=== PATIENT | female | born 1970 | race Caucasian/White ===

== ENCOUNTER → 2017-12-18 14:52 | Outpatient (CLI) | payer BC, SELFPAY ==
[2017-12-18 17:20] LABS: Absolute Lymphocyte Count 2.81 X10^3/ul (0.83-4.51); Absolute Neutrophil Count 6.5 X10^3/uL (2.0-7.7); Basophil# 0.03 X10^3/uL; Basophil% 0.3 % (0-1); Eosinophil# 0.16 X10^3/uL; Eosinophils% 1.6 % (0-5); Hematocrit 41.1 % (37-47); Hemoglobin 13.4 g/dl (12.0-15.0); Lymphocyte # 2.81 X10^3/ul (4.0); Lymphocyte % 27.7 % (19-41); Mean Corp Hgb Conc 32.6 g/gl (32-36); Mean Corpuscular Volume 92.2 fL (81-99); Mean Platelet Vol. 11.7 fl (6.2-12.0); Monocyte# 0.63 X10^3/uL; Monocyte% 6.2 % (0-10); Neutrophil # 6.49 X10^3/uL (2.7-7.7); Neutrophil % 64.1 % (47-70); Platelet Count 312 K/mm3 (150-450); RBC Distribution Width CV 12.5 % (11.6-14.6); RBC Distribution Width SD 41.4 fl (35.1-43.9); Red Blood Count 4.46 M/mm3 (4.2-5.4); White Blood Count 10.1 K/mm3 (4.4-11.0)
[2017-12-18 17:23] LABS: POSITIVE COUNT NO; POSITIVE DIFFERENTIAL NO; POSITIVE MORPHOLOGY NO
[2017-12-18 17:39] LABS: ALB/GLOB Ratio 0.8 RATIO (0.9-2.4); AST(SGOT) 19 U/L (15-37); Alanine Aminotransfer ALT/SGPT 31 U/L (13-56); Albumin, Serum 3.2 g/dL (3.2-5.0); Alkaline Phosphatase 84 U/L (45-117); Anion Gap 12 (5-15); BUN 14 mg/dL (7-18); BUN/Creat Ratio 20.6 RATIO (10-20); Calcium,Total 8.4 mg/dL (8.5-10.1); Chloride 103 mmol/L (98-107); Creatinine, Serum 0.68 mg/dL (0.55-1.02); EST Glomerular Filtration Rate 98 mL/min (>60); Est Glom Filt Rate - Afr Amer 118 mL/min (>60); Globulin 4.2 g/dL (2.2-4.2); Glucose 84 mg/dL (74-106); Potassium 4.1 mmol/L (3.5-5.1); Protein, Total 7.4 g/dL (6.4-8.2); Sodium Level 140 mmol/L (136-145); Thyroid Stim Hormone (TSH) 0.44 uIU/mL (0.358-3.74)
[2017-12-18 17:53] LABS: Vitamin D,25 Hydroxy 18.6 ng/mL (29.95-100.01)
== END ==
PROVIDERS: Family Provider Family Medicine Geriatric Medicine; PCP Family Medicine Geriatric Medicine; Visit Provider Family Medicine Geriatric Medicine
DX: E55.9 Vitamin D deficiency, unspecified (principal); R53.83 Other fatigue
CPT/HCPCS: 36415; 80053; 82306; 84443; 85025

== ENCOUNTER → 2018-01-15 12:30 | Outpatient (CLI) | payer BC, SELFPAY ==
--- NOTE | 2018-01-15 12:32 | US_ITS ---
STUDY: ULTRASOUND BREAST - LEFT REASON FOR EXAM: Female, 48 years old. Abnormal screening mammogram. TECHNIQUE: Axial and longitudinal images of the LEFT breast were performed with a high resolution ultrasound transducer. COMPARISON: Comparison is made with prior outside ultrasound of the breasts dated April 21, 2017. FINDINGS: LEFT Breast: At the 6:00 position in the breast at 2 cm from nipple, there is a 7 mm x 9 mm x 3 mm septated complex cyst. Adjacent to this, a similar-appearing nodule measuring 5 mm x 4 mm x 3 mm is seen. A biopsy is recommended. US/Breast Complete Unilateral IMPRESSION: There are 2 subcentimeter complex solid and cystic nodules at the 6:00 position breast at 2 cm from nipple. A biopsy is recommended. ASSESSMENT CATEGORY: BIRADS Category 4: Suspicious - Biopsy Should Be Considered. A letter regarding these results will be sent to the patient by the facility within 30 days. Electronically Signed: Morgan Corbett MD at 14:03 EST Tel [phone], Service support ,
== END ==
PROVIDERS: Family Provider Family Medicine Geriatric Medicine; PCP Family Medicine Geriatric Medicine; Referring Provider Surgery; Visit Provider Surgery
DX: N60.02 Solitary cyst of left breast (principal)
CPT/HCPCS: 76641

== ENCOUNTER → 2018-02-07 19:28 | Outpatient (CLI) | payer BC, SELFPAY ==
[2018-02-06 13:16] VITALS: BMI 26.7
[2018-02-07 22:49] LABS: Chlamydia Trachomatis by PCR Negative (Negative); Neisserai gonorrhoeae by PCR Negative (Negative); Probe Check PASS; Sample Adequacy Control PASS; Specimen Processing Control PASS
[2018-02-13 11:54] LABS: HPV Reflexed? NOT INDICATED
== END ==
PROVIDERS: Family Provider Family Medicine Geriatric Medicine; PCP Family Medicine Geriatric Medicine; Visit Provider Obstetrics & Gynecology
DX: Z12.4 Encounter for screening for malignant neoplasm of cervix (principal); Z11.3 Encounter for screening for infections with a predominantly sexual mode of transmission
CPT/HCPCS: 87491; 87591; 87624; 88175; G0145

== ENCOUNTER → 2018-02-16 07:59 | Outpatient (CLI) | payer BC, SELFPAY ==
[2018-02-06 13:16] VITALS: BMI 26.7
--- NOTE | 2018-02-16 | BRBX_PTH ---
PATIENT: VARSHA ALLISON LOC: OPUS U#:[id number] AGE/SX: 55/F ROOM: RE02/16/[address]: Dr. Marilia Brenner MD : 1970 BED: DIS: SPEC #: [id number] RECD: 02/16/18 14:35 STATUS: MATTIE REQamar #: [id number] TAMMY: 02/16/18 00:[address]: Marilia Brenner DEPT: SURGICAL PATHOLOGY RECD BY: Darin Rondon ENTERED: 02/16/18 14:35 SP TYPE: BREAST BX OTHR DR: Dr. Thierry Wan MD Tissues: Left breast, NOS Procedures: Surgery Specimen Level IV HEADER OPERATION: Left breast biopsy PRE-OP DIAGNOSIS: Left breast lesion TISSUE SUBMITTED: Left breast ISCHEMIC TIME: 1 minute MICROSCOPIC DIAGNOSIS Left breast, biopsy: Fibrocystic change. No evidence of malignancy. AM:dina 02/19/18 MICROSCOPIC DESCRIPTION Slides are reviewed. GROSS DESCRIPTION Received is one container labeled with the patient's name and not further designated. The specimen consists of multiple irregular fragments of light roche-yellow soft tissue that in aggregate measure 2 x 1.5 x 0.1 cm. The specimen is totally submitted in one cassette. / AM:dina 02/16/18 TC:5 CPT: 22379
--- NOTE | 2018-02-16 08:02 | US_ITS ---
ULTRASOUND GUIDED CORE BIOPSY REASON FOR EXAM: Female, 48 years old. Abnormal screening mammogram. PERTINENT HISTORY: Abnormal nodule at the 6:00 position of the breast. COMPARISON: Comparison is made with prior sonogram dated January 15, 2018. TECHNIQUE: (All elements of maximal sterile barrier technique followed, including US elements as applicable) Upon arrival to the breast imaging department the patient's identification was confirmed and the LEFT breast was marked according to time-out protocol. Ultrasound guided core biopsy and clip placement, to include potential risks and complications, was explained in full to the patient. Written and verbal consent were obtained prior to initiation of the procedure. The LEFT breast was prepped and draped in standard sterile fashion and local anesthesia was obtained with 1% buffered lidocaine. A small dermatotomy was then made to introduce the core biopsy needle. Under ultrasound guidance 5 core samples were obtained with a 11 gauge needle and submitted in formalin for pathology. A titanium clip was then deployed into the biopsy cavity under ultrasound guidance. Upon completion of the procedure hemostasis was obtained and sterile dressing was applied. The patient tolerated the entire procedure without immediate complication and was discharged from the breast imaging department in good condition. US/US Breast Biopsy 1st Lesion IMPRESSION: Ultrasound guided core biopsy of a mass in the LEFT breast at the 6:00 position of the breast without complication. Electronically Signed: Morgan Corbett MD at 8:28 EST Tel [phone], Service support ,
--- NOTE | 2018-02-16 08:47 | BI_ITS ---
MAMMOGRAPHY - UNILATERAL DIAGNOSTIC: LEFT BREAST REASON FOR EXAM: Female, 48 years old. Assessment of blood clip placement following ultrasound-guided breast biopsy. PERTINENT HISTORY: Ultrasound guided left breast biopsy. TECHNIQUE: Digital mediolateral oblique and craniocaudad views of the left breast following ultrasound-guided biopsy breasts were obtained. CAD: Full Field Digital Mammography with Computer Added Detection was performed. COMPARISON: Comparison is made with prior mammogram dated April 21, 2017. FINDINGS: Breast Composition: The breasts are heterogeneously dense, which may obscure small masses. A tissue clip marker is seen in the mid aspect of the left breast. No other significant abnormalities are identified. BI/DIAG MAMM W/CAD, UNILAT IMPRESSION: A tissue clip marker is seen at the biopsy site in the mid portion of the breast. ASSESSMENT CATEGORY: BIRADS Category 2: Benign. A letter regarding these results will be sent to the patient by the facility within 30 days. Approximately 10% of breast cancers are not detected by mammography. A normal mammogram should not delay biopsy of a clinically suspicious abnormality. Electronically Signed: Morgan Corbett MD at 9:46 EST Tel [phone], Service support ,
--- NOTE | 2018-02-16 08:49 | PCM.OP.BLANK ---
Operative Report Date of Procedure: 02/16/18 Procedure: ultrasound-guided core biopsy Indications: 48 year-old female with 2 solid/cystic nodules at 6:00 in the left breast to centimeters from the nipple. Risk benefits were discussed the patient and she elected to proceed with ultrasound guided core biopsy with clip placement Description of procedure: Patient was brought into the ultrasound room in the left breast was marked. A timeout was completed verifying correct patient, procedure, site, specially, prior to beginning procedure. The left breast was prepped and draped in usual sterile fashion and using local anesthesia was obtained with 1% lidocaine with epi. The lesion was located with the ultrasound. Small incision was made with 11 blade to introduced the mammotome through the skin. Under ultrasound guidance multiple core samples were obtained using then 13-gauge mammotome and sent in formalin for pathology. The mammotome mammostar clip was then deployed into the biopsy cavity under ultrasound guidance and a picture was taken. Upon completion procedure hemostasis was obtained and a Steri-Strip and OpSite were placed. Patient was then taken to the mammography suite for clip verification. The clip was verified. The patient tolerated the procedure well and was discharged from the breast imaging department good condition. complications: none
== END ==
PROVIDERS: Family Provider Family Medicine Geriatric Medicine; PCP Family Medicine Geriatric Medicine; Referring Provider Surgery; Visit Provider Surgery
DX: N60.12 Diffuse cystic mastopathy of left breast (principal)
CPT/HCPCS: 19083; 77065; 88305

== ENCOUNTER → 2018-06-05 15:28 | Outpatient (CLI) | payer BC, SELFPAY ==
[2018-02-06 13:16] VITALS: BMI 26.7
--- NOTE | 2018-06-05 15:33 | US_ITS ---
STUDY: ULTRASOUND BREAST - LEFT REASON FOR EXAM: Female, 48 years old. Palpable lump left breast. TECHNIQUE: Axial and longitudinal images of the LEFT breast were performed with a high resolution ultrasound transducer. COMPARISON: Comparison is made with prior mammogram dated February 16, 2018 and prior sonogram of the left breast dated January 15, 2018. FINDINGS: LEFT Breast: A tissue clip marker is seen at the 6:00 position of the breast. The previously seen subcentimeter nodular densities are not seen at this time. US/Breast Limited Unilateral IMPRESSION: Status post left breast biopsy. No nodules are seen at this time. A tissue clip marker is seen at the biopsy site. ASSESSMENT CATEGORY: BIRADS Category 2: Benign. A letter regarding these results will be sent to the patient by the facility within 30 days. Electronically Signed: Morgan Corbett, at 9:02 EDT , Service support ,
== END ==
PROVIDERS: Family Provider Family Medicine Geriatric Medicine; PCP Family Medicine Geriatric Medicine; Referring Provider Obstetrics & Gynecology; Visit Provider Obstetrics & Gynecology
DX: N60.02 Solitary cyst of left breast (principal); R92.8 Other abnormal and inconclusive findings on diagnostic imaging of breast
CPT/HCPCS: 76642

== ENCOUNTER → 2018-12-24 13:10 | Outpatient (CLI) | payer BC, SELFPAY ==
[2018-02-06 13:16] VITALS: BMI 26.7
[2018-12-24 17:46] LABS: Absolute Neutrophil Count 5.1 X10^3/uL (2.0-7.7); Basophil# 0.05 X10^3/uL; Basophil% 0.6 % (0-1); Eosinophil# 0.17 X10^3/uL; Hematocrit 43.5 % (37-47); Hemoglobin 14.2 g/dL (12.0-15.0); Lymphocyte % 30.2 % (19-41); Mean Corp Hgb Conc 32.6 g/dL (32-36); Mean Corpuscular Hgb 30.9 pg (27.0-32.0); Mean Corpuscular Volume 94.8 fL (81-99); Mean Platelet Vol. 11.2 fl (6.2-12.0); Monocyte# 0.66 X10^3/uL; Monocyte% 7.7 % (0-10); NRBC Flagged by Analyzer 0 % (0-5); Neutrophil # 5.11 X10^3/uL (2.7-7.7); Neutrophil % 59.2 % (47-70); Platelet Count 291 K/mm3 (150-450); Red Blood Count 4.59 M/mm3 (4.2-5.4); White Blood Count 8.6 K/mm3 (4.4-11.0)
[2018-12-24 18:22] LABS: ALB/GLOB Ratio 0.9 RATIO (0.9-2.4); AST(SGOT) 16 U/L (15-37); Alanine Aminotransfer ALT/SGPT 26 U/L (13-56); Albumin, Serum 3.7 g/dL (3.2-5.0); Alkaline Phosphatase 99 U/L (45-117); Anion Gap 7 (5-15); BUN 14 mg/dL (7-18); BUN/Creat Ratio 20.3 RATIO (10-20); Calcium,Total 8.5 mg/dL (8.5-10.1); Chloride 104 mmol/L (98-107); Creatinine, Serum 0.69 mg/dL (0.55-1.02); EST Glomerular Filtration Rate 95 mL/min (>60); Est Glom Filt Rate - Afr Amer 115 mL/min (>60); Globulin 3.9 g/dL (2.2-4.2); Glucose 122 mg/dL (74-106); Potassium 3.8 mmol/L (3.5-5.1); Protein, Total 7.6 g/dL (6.4-8.2); Sodium Level 138 mmol/L (136-145); Thyroid Stim Hormone (TSH) 0.48 uIU/mL (0.358-3.74)
== END ==
PROVIDERS: Family Provider Family Medicine Geriatric Medicine; PCP Family Medicine Geriatric Medicine; Visit Provider Family Medicine Geriatric Medicine
DX: Z00.00 Encounter for general adult medical examination without abnormal findings (principal)
CPT/HCPCS: 36415; 80053; 84443; 85025

== ENCOUNTER → 2019-03-18 08:16 | Outpatient (CLI) | payer BC, SELFPAY ==
[2018-02-06 13:16] VITALS: BMI 26.7
--- NOTE | 2019-03-18 08:18 | BI_ITS ---
MAMMOGRAPHY - BILATERAL SCREENING REASON FOR EXAM: Female, 49 years old. Routine annual screening examination. PERTINENT HISTORY: Grandmother with breast cancer. TECHNIQUE: Digital bilateral breast mallika (3D mammographic acquisition) in the CC and MLO projections. 2-D mediolateral oblique (MLO) and craniocaudad (CC) views of both breasts were obtained. CAD: Full Field Digital Mammography with Computer Added Detection was performed. COMPARISON: Comparison is made with prior examination dated February 16, 2018. FINDINGS: Breast Composition: The breasts are heterogeneously dense, which may obscure small masses. There are no dominant masses or suspicious calcifications. No other significant abnormalities are identified. There has been no significant change since the prior study. BI/SCREEN MAMM (CAD) W/MALLIKA BILAT IMPRESSION: Stable bilateral screening mammogram. Yearly follow-up mammogram recommended. (A) ASSESSMENT CATEGORY: BIRADS Category 1: Negative. A letter regarding these results will be sent to the patient by the facility within 30 days. Approximately 10% of breast cancers are not detected by mammography. A normal mammogram should not delay biopsy of a clinically suspicious abnormality. [id number] Electronically Signed: Morgan Corbett, at 9:55 EST , Service support ,
== END ==
PROVIDERS: Family Provider Family Medicine Geriatric Medicine; PCP Family Medicine Geriatric Medicine; Referring Provider Obstetrics & Gynecology; Visit Provider Obstetrics & Gynecology
DX: Z12.31 Encounter for screening mammogram for malignant neoplasm of breast (principal)
CPT/HCPCS: 77063; 77067

== ENCOUNTER → 2020-01-06 14:51 | Outpatient (CLI) | payer BC, SELFPAY ==
[2018-02-06 13:16] VITALS: BMI 26.7
[2020-01-06 17:10] LABS: Absolute Lymphocyte Count 2.34 X10^3/uL (0.83-4.51); Absolute Neutrophil Count 4.3 X10^3/uL (2.0-7.7); Basophil# 0.05 X10^3/uL; Basophil% 0.7 % (0-1); Eosinophil# 0.25 X10^3/uL; Eosinophils% 3.3 % (0-5); Hematocrit 43.2 % (37-47); Hemoglobin 13.9 g/dL (12.0-15.0); Lymphocyte # 2.34 X10^3/ul (4.0); Lymphocyte % 30.6 % (19-41); Mean Corp Hgb Conc 32.2 g/dL (32-36); Mean Corpuscular Hgb 30.8 pg (27.0-32.0); Mean Corpuscular Volume 95.6 fL (81-99); Mean Platelet Vol. 11.2 fl (6.2-12.0); Monocyte# 0.67 X10^3/uL; Monocyte% 8.8 % (0-10); NRBC Flagged by Analyzer 0 % (0-5); Neutrophil # 4.32 X10^3/uL (2.7-7.7); Neutrophil % 56.3 % (47-70); Platelet Count 322 K/mm3 (150-450); RBC Distribution Width CV 12.2 % (11.6-14.6); RBC Distribution Width SD 42.5 fl (35.1-43.9); Red Blood Count 4.52 M/mm3 (4.2-5.4); White Blood Count 7.7 K/mm3 (4.4-11.0)
[2020-01-06 17:43] LABS: ALB/GLOB Ratio 0.8 RATIO (0.9-2.4); AST(SGOT) 16 U/L (15-37); Alanine Aminotransfer ALT/SGPT 25 U/L (13-56); Albumin, Serum 3.5 g/dL (3.2-5.0); Alkaline Phosphatase 108 U/L (45-117); Anion Gap 8 (5-15); BUN 11 mg/dL (7-18); BUN/Creat Ratio 17.5 RATIO (10-20); Calcium,Total 8.2 mg/dL (8.5-10.1); Chloride 104 mmol/L (98-107); Creatinine, Serum 0.63 mg/dL (0.55-1.02); EST Glomerular Filtration Rate 106 mL/min (>60); Est Glom Filt Rate - Afr Amer 128 mL/min (>60); Globulin 4.2 g/dL (2.2-4.2); Glucose 75 mg/dL (74-106); Potassium 3.3 mmol/L (3.5-5.1); Protein, Total 7.7 g/dL (6.4-8.2); Sodium Level 139 mmol/L (136-145); Thyroid Stim Hormone (TSH) 0.55 uIU/mL (0.358-3.74)
== END ==
PROVIDERS: PCP Family Medicine Geriatric Medicine; Visit Provider Family Medicine Geriatric Medicine
DX: R53.83 Other fatigue (principal)
CPT/HCPCS: 36415; 80053; 84443; 85025

== ENCOUNTER → 2020-01-22 10:50 | Outpatient (CLI) | payer BC, SELFPAY ==
[2018-02-06 13:16] VITALS: BMI 26.7
[2020-01-22 12:48] LABS: Anion Gap 3 (5-15); BUN 10 mg/dL (7-18); BUN/Creat Ratio 14.8 RATIO (10-20); Calcium,Total 8.7 mg/dL (8.5-10.1); Chloride 105 mmol/L (98-107); Creatinine, Serum 0.68 mg/dL (0.55-1.02); EST Glomerular Filtration Rate 97 mL/min (>60); Est Glom Filt Rate - Afr Amer 118 mL/min (>60); Glucose 69 mg/dL (74-106); Potassium 4.1 mmol/L (3.5-5.1); Sodium Level 138 mmol/L (136-145)
== END ==
PROVIDERS: PCP Family Medicine Geriatric Medicine; Visit Provider Family Medicine Geriatric Medicine
DX: E87.6 Hypokalemia (principal)
CPT/HCPCS: 36415; 80048

== ENCOUNTER → 2020-02-27 13:42 | Outpatient (CLI) | payer BC, SELFPAY ==
[2018-02-06 13:16] VITALS: BMI 26.7
[2020-03-03 10:40] LABS: HPV Reflexed? NOT INDICATED
== END ==
PROVIDERS: PCP Family Medicine Geriatric Medicine; Visit Provider Obstetrics & Gynecology
DX: Z12.4 Encounter for screening for malignant neoplasm of cervix (principal)
CPT/HCPCS: 88175; G0145

== ENCOUNTER → 2020-03-30 08:19 | Outpatient (CLI) | payer BC, SELFPAY ==
[2018-02-06 13:16] VITALS: BMI 26.7
--- NOTE | 2020-03-30 08:21 | BI_ITS ---
MAMMOGRAPHY - BILATERAL SCREENING REASON FOR EXAM: Female, 50 years old. Routine annual screening examination. PERTINENT HISTORY: Grandmother with breast cancer. TECHNIQUE: Digital bilateral breast mallika (3D mammographic acquisition) in the CC and MLO projections. 2-D mediolateral oblique (MLO) and craniocaudad (CC) views of both breasts were obtained. CAD: Full Field Digital Mammography with Computer Added Detection was performed. COMPARISON: Comparison is made with prior study dated 09/16/2019 and 02/16/2018. FINDINGS: Breast Composition: The breasts are heterogeneously dense, which may obscure small masses. There are no dominant masses or suspicious calcifications. Stable benign-appearing bilateral axillary lymph nodes. No other significant abnormalities are identified. There has been no significant change since the prior study. BI/SCRN MAMM (CAD)W/MALLIKA BILAT IMPRESSION: Stable bilateral screening mammogram. Yearly follow-up mammogram recommended. (A) ASSESSMENT CATEGORY: BIRADS Category 2: Benign. A letter regarding these results will be sent to the patient by the facility within 30 days. Approximately 10% of breast cancers are not detected by mammography. A normal mammogram should not delay biopsy of a clinically suspicious abnormality. [id number] Electronically Signed: Morgan Corbett MD at 9:20 EST , Service support ,
== END ==
PROVIDERS: PCP Family Medicine Geriatric Medicine; Referring Provider Obstetrics & Gynecology; Visit Provider Obstetrics & Gynecology
DX: Z12.31 Encounter for screening mammogram for malignant neoplasm of breast (principal)
CPT/HCPCS: 77063; 77067

== ENCOUNTER → 2021-01-11 13:14 | Outpatient (CLI) | payer BC, SELFPAY ==
[2021-01-11 15:38] LABS: Absolute Lymphocyte Count 2.97 X10^3/uL (0.83-4.51); Absolute Neutrophil Count 4.8 X10^3/uL (2.0-7.7); Basophil# 0.07 X10^3/uL; Basophil% 0.8 % (0-1); Eosinophil# 0.24 X10^3/uL; Eosinophils% 2.7 % (0-5); Hematocrit 44.9 % (37-47); Hemoglobin 14.9 g/dL (12.0-15.0); Lymphocyte # 2.97 X10^3/ul (0.83-4.51); Lymphocyte % 33.6 % (19-41); Mean Corp Hgb Conc 33.2 g/dL (32-36); Mean Corpuscular Hgb 30.8 pg (27.0-32.0); Mean Platelet Vol. 10.7 fl (6.2-12.0); Monocyte# 0.72 X10^3/uL; Monocyte% 8.2 % (0-10); NRBC Flagged by Analyzer 0 % (0-5); Neutrophil # 4.81 X10^3/uL (2.7-7.7); Neutrophil % 54.5 % (47-70); Platelet Count 327 K/mm3 (150-450); RBC Distribution Width CV 12.2 % (11.6-14.6); RBC Distribution Width SD 41.8 fl (35.1-43.9); Red Blood Count 4.83 M/mm3 (4.2-5.4); White Blood Count 8.8 K/mm3 (4.4-11.0)
[2021-01-11 16:12] LABS: ALB/GLOB Ratio 0.7 RATIO (0.9-2.4); AST(SGOT) 25 U/L (15-37); Alanine Aminotransfer ALT/SGPT 36 U/L (13-56); Albumin, Serum 3.4 g/dL (3.2-5.0); Alkaline Phosphatase 103 U/L (45-117); Anion Gap 6 (5-15); BUN 12 mg/dL (7-18); BUN/Creat Ratio 18.6 RATIO (10-20); Calcium,Total 8.7 mg/dL (8.5-10.1); Chloride 102 mmol/L (98-107); Creatinine, Serum 0.65 mg/dL (0.55-1.02); EST Glomerular Filtration Rate 102 mL/min (>60); Est Glom Filt Rate - Afr Amer 124 mL/min (>60); Globulin 4.6 g/dL (2.2-4.2); Glucose 76 mg/dL (74-106); Sodium Level 136 mmol/L (136-145); Thyroid Stim Hormone (TSH) 0.67 uIU/mL (0.358-3.74)
== END ==
PROVIDERS: PCP Family Medicine Geriatric Medicine; Visit Provider Family Medicine Geriatric Medicine
DX: R53.83 Other fatigue (principal)
CPT/HCPCS: 36415; 80053; 84443; 85025

== ENCOUNTER 2021-01-13 10:30 | Outpatient (RCR) | payer BC, SELFPAY ==
--- NOTE | 2020-10-28 15:15 | HP.PTEVAL_ITS ---
Patient's Visit Information VARSHA ALLISON is a 50 year old F referred to Physical Therapy by Dr. Tere Butler DPM with a diagnosis of L achilles tendonitis, R Post tib dysfunction, B Plantar Fascitis. Date of Evaluation: 10/28/20 Physical Therapist: Yamileth Velasco MPT - Visit Plan Frequency: 2x /Week Duration: 6 Weeks Plan: 2X/ week for 6 weeks for B ankle stick roll out, stretching of gastroc, soleus, plantar fascia, MT and possible graston also, gait training,. HEP: towel gastroc stretch, step single leg stretch, seated heel and toe raises, water bottle under foot, stick roll out (pt to look into getting one for home). May try trial of US. Discuss dry needling next visit - Subjective About a year ago May she injured her L achilles on the elliptical. She rode bike all summer long and by the end of summer it was so swollen and could hardly walk. She went to foot Dr in [facility] and did therapy and could not get over the hump. Got cortizone and continued with PT at home. She was in a walking boot in [place] and did not get a lift for other shoe and trashed her R ankle and her L ankle was stiff and that Dr said he was cutting her L. Now she had razor blade pain in B ankles. Switched Dr and went back to PT and got to point in July and thought that PT could do all her could do. She thought she was doing better and exercised for a week and flared both ankles up. Went back to and has PF in B feet and achilees tendonitis on the L and post tib tendoitis on the R. She is at her wits end and not getting better and does not want surgery. She can not do groceries. She walks a lot for her job. said to go back to therapy for 6 weeks. In PT last time she did foam single leg exercises, rocker board, dry needling on the L, MT on her L Plantar Fascia. Home she would do exercises....ankle alpabet, toe curls, stretching across the wall exercises, ankle towel stretch. This has changed so much and now she is tight in her calf and can not get it stretched out. Both heels burn. - Pain L achilles Pain Intensity (Out of 10): 4 Pain Intensity Range: 8 R ankle (tibial) Pain Intensity (Out of 10): 5 Pain Intensity Range: 8 R plantar Fascia Pain Intensity (Out of 10): 2 L plantar fascia Pain Intensity (Out of 10): 3 - Objective Gait: walks with steppage gait with decrease heel to toe gait pattern, slightly large ANJELICA, and decreased stride length. Palpation: tender L medial aspect of achilles (hard lump felt along the achilles and heel and plantar fascia. Tender R heel and plantar fascia and along the post tib tendon. R ankle DF -4 degrees from neutral and 40 degrees PF. L ankle DF -2 degrees from neutral and 35 degrees PF. SLB B 30 seconds - Balance/Special Test Scores Lower Extremity Functional Score: 33 - Goals Goal 1:: I HEP Goal Time Frame: 4-6 Weeks Goal 2:: Increase B ankle AROM to 8 degrees DF Goal Time Frame: 4-6 Weeks Goal 3:: Decrease pain in L achilles and B PF to 1/10 after a long work day Goal Time Frame: 4-6 Weeks Goal 4:: Be able to walk with a more normal gait pattern with heel to toe and normal stride Goal Time Frame: 4-6 Weeks - Rehabilitation Potential Rehabilitation Potential: Good - Anticipated Interventions Patient/Client Instruction: Educate patient on: Condition, Plan of Care For the Purpose of:: To decrease pain Therapeutic Exercise to Include: Strength training, Balance training, Flexibilty training, Gait and locomotor training, Neuromotor development, Passive ROM, Active ROM For the Purpose of:: To decrease pain, To increase ROM, To improve nutrient delivery to tissue, To improve muscle performance and motor function, To improve ability to perform ADL's, To increase tolerance to activity/condition/position, To improve gait and locomotor functions, To improve health of tissue, To decrease soft tissue restriction, To increase flexibility/ROM Functional Training to Include: Gait training For the Purpose of:: To improve gait and locomotor functions Manual Therapy Techniques to Include: Mobilization, Passive ROM, Functional dry needling, Soft tissue mobilization For the Purpose of:: To decrease pain, To increase ROM, To improve nutrient delivery to tissue, To improve muscle performance and motor function, To improve ability to perform ADL's, To increase tolerance to activity/condition/position, To improve gait and locomotor functions Ultrasound (thermal/non thermal): Yes For the Purpose of:: To decrease pain, To decrease swelling/inflammation, To improve nutrient delivery to tissue Thank you for the opportunity to evaluate your patient. For Medicare and Medicare HMO plans, please review the plan of care and approve it. It will need to be FAXED BACK to us at [phone] for Medicare purposes. For Medicare only, by signing this I certify the plan of care. Please let me know if there are questions or concerns regarding this plan of care. Physician Signature: Date:
--- NOTE | 2021-01-13 11:07 | HP.PTREVAL ---
Dr. Tere Bulter, DPM, It has been my pleasure to treat VARSHA ALLISON over the last 16 visits for L achilles tendonitis, R Post tib dysfunction, B Plantar Fascitis. Please see the progress note below for an update on the physical therapy plan of care! Subjective: Trying the stretch boot now at night and that helps through the night but only has one and wants to get another one. She wants to do the boot stretch and not as aggressive at stretching because aggressive stretches increases pain and keeps it sore and aggrevated. If she walks too much then it swells up. No one seems to know why this occurs. Pt is out of PT visits and needs to request additional visits. Pt got fitted for orthotics and takes 2-3 weeks to come in. Pt feels that overall 75% improved since onset of injury and 25% over the last 16 visits. Pt wants to learn I gym routine to keep getting stronger but out of PT visits. Objective/Function: Gait: pt is able to walk faster but can not take long strides. L ankle DF 11 AROM. R ankle DF 12 AROM Plan Plan: Try to get additional visits approved to learn I gym routine. Pt to continue at home with stretching, MT and pain relief with the use of her stretch boot and new orthotics. Balance/Gait/Functional tests - Balance/Special Test Scores Lower Extremity Functional Score: 40 Goals Goal 1:: I HEP Goal Time Frame: 4-6 Weeks Goal Progress: Goal Met Goal 2:: Increase B ankle AROM to 8 degrees DF Goal Time Frame: 4-6 Weeks Goal Progress: Goal Met Goal 3:: Decrease pain in L achilles and B PF to 1/10 after a long work day Goal Time Frame: 4-6 Weeks Goal Progress: Not Progressing Goal 4:: Be able to walk with a more normal gait pattern with heel to toe and normal stride Goal Time Frame: 4-6 Weeks Goal Progress: Goal Met Anticipated Interventions Patient/Client Instruction: Educate patient on: Condition, Plan of Care For the Purpose of:: To decrease pain Therapeutic Exercise to Include: Strength training, Balance training, Flexibilty training, Gait and locomotor training, Neuromotor development, Passive ROM, Active ROM For the Purpose of:: To decrease pain, To increase ROM, To improve nutrient delivery to tissue, To improve muscle performance and motor function, To improve ability to perform ADL's, To increase tolerance to activity/condition/position, To improve gait and locomotor functions, To improve health of tissue, To decrease soft tissue restriction, To increase flexibility/ROM Functional Training to Include: Gait training For the Purpose of:: To improve gait and locomotor functions Manual Therapy Techniques to Include: Mobilization, Passive ROM, Functional dry needling, Soft tissue mobilization For the Purpose of:: To decrease pain, To increase ROM, To improve nutrient delivery to tissue, To improve muscle performance and motor function, To improve ability to perform ADL's, To increase tolerance to activity/condition/position, To improve gait and locomotor functions Ultrasound (thermal/non thermal): Yes For the Purpose of:: To decrease pain, To decrease swelling/inflammation, To improve nutrient delivery to tissue Please do not hesitate to contact me at [phone] by phone or if you have questions or concerns regarding this new plan of care! Sincerely, Yamileth Velasco MPT
== END 2021-01-13 19:00 | disposition home or self-care (01) ==
LOC: PT 10:30
PROVIDERS: PCP Family Medicine Geriatric Medicine; Referring Provider Podiatrist Foot & Ankle Surgery; Visit Provider Podiatrist Foot & Ankle Surgery
DX: M76.62 Achilles tendinitis, left leg (principal)
CPT/HCPCS: 97110; 97140; 97162; 97530

== ENCOUNTER 2021-03-15 15:27 | Outpatient (CLI) | payer BC, SELFPAY ==
--- NOTE | 2021-03-15 15:29 | BI_ITS ---
MAMMOGRAPHY - BILATERAL SCREENING REASON FOR EXAM: Female, 51 years old. Routine annual screening examination. PERTINENT HISTORY: Grandmother with breast cancer. Prior left ultrasound-guided breast biopsy. TECHNIQUE: Digital bilateral breast mallika (3D mammographic acquisition) in the CC and MLO projections. 2-D mediolateral oblique (MLO) and craniocaudad (CC) views of both breasts were obtained. CAD: Full Field Digital Mammography with Computer Added Detection was performed. COMPARISON: Comparison is made with prior study dated 03/30/2020 and 03/18/2019. FINDINGS: Breast Composition: The breasts are heterogeneously dense, which may obscure small masses. There are no dominant masses or suspicious calcifications. Interstitial clip marker is seen in the central retroareolar region of the left breast in keeping with the history of prior biopsy. There is a 5.6 mm well-defined nodule in the upper-outer aspect of the right breast. Correlation with ultrasound is recommended. No other significant abnormalities are identified. BI/SCRN MAMM (CAD)W/MALLIKA BILAT IMPRESSION: 5.6 mm well-defined nodule in the upper-outer quadrant of the right breast. Correlation with ultrasound is recommended. ASSESSMENT CATEGORY: BIRADS Category 0: Incomplete. Need additional imaging evaluation. A letter regarding these results will be sent to the patient by the facility within 30 days. Approximately 10% of breast cancers are not detected by mammography. A normal mammogram should not delay biopsy of a clinically suspicious abnormality. [id number] Electronically Signed: Morgan Corbett MD at 20:31 EST , Service support ,
== END 2021-03-15 23:59 | disposition short-term general hospital (02) ==
LOC: OPBI 15:27
PROVIDERS: PCP Family Medicine Geriatric Medicine; Referring Provider Obstetrics & Gynecology; Visit Provider Obstetrics & Gynecology
DX: Z12.31 Encounter for screening mammogram for malignant neoplasm of breast (principal)
CPT/HCPCS: 77063; 77067

== ENCOUNTER 2021-03-19 07:58 | Outpatient (CLI) | payer BC, SELFPAY ==
--- NOTE | 2021-03-19 08:00 | US_ITS ---
STUDY: ULTRASOUND BREAST - RIGHT REASON FOR EXAM: Female, 51 years old. Abnormal screening mammogram. TECHNIQUE: Axial and longitudinal images of the RIGHT breast were performed with a high resolution ultrasound transducer. # OF IMAGES: 8 COMPARISON: Comparison is made with prior mammogram dated 03/15/2021. FINDINGS: RIGHT Breast: There is a 9 mm x 7 mm x 6 mm cyst at the 10 o''clock position breast at 6 cm from the nipple. This corresponds to the mammographic findings. US/Breast Limited Unilateral IMPRESSION: The mammographic finding corresponds to a 9 mm x 7 mm x 6 mm cyst at the 10 o''clock position in the breast at 6 cm from the nipple. ASSESSMENT CATEGORY: BIRADS Category 2: Benign. A letter regarding these results will be sent to the patient by the facility within 30 days. Electronically Signed: Morgan Corbett MD at 10:43 EST ,
== END 2021-03-19 23:59 | disposition short-term general hospital (02) ==
LOC: OPUS 07:59
PROVIDERS: PCP Family Medicine Geriatric Medicine; Referring Provider Obstetrics & Gynecology; Visit Provider Obstetrics & Gynecology
DX: N63.11 Unspecified lump in the right breast, upper outer quadrant (principal)
CPT/HCPCS: 76642

== ENCOUNTER 2021-09-13 08:30 | Outpatient (RCR) | payer BC, SELFPAY ==
--- NOTE | 2021-07-05 16:30 | HP.PTEVAL_ITS ---
Patient's Visit Information VARSHA ALLISON is a 51 year old F referred to Physical Therapy by RAMANDEEP Ladd with a diagnosis of Left Shoulder Pain. Date of Evaluation: 07/05/21 Physical Therapist: Chely Ortega DPT - Visit Plan Frequency: 2x /Week Duration: 4 Weeks Plan: Focus on Scapular s/s- muscular imbalance, US and TENS mod of choice. HEP Given IE: Postural Education, scapular retraction, bilateral ER without weights, pec corner stretch - Subjective Left shoulder has always been a problem, she has bad feet so has compensated during her job. 2 weeks ago she pushed herself sideways and then that night it really started to bother her. Saw MD who had x-rays- which showed calcium and some OA. No MRI at this time- no injection but did have an oral steroid. Tomorrow is her last one then she starts Meloxicam for 2 weeks. She feels that the steroid has given her 40-50% of normal. Pain is located in the biceps and radiates to the deltoid. Radiating has diminished since starting the steroid. No issues with finger dexterity or chassis wirer strength. No N/T in the fingers. Describes the pain as achy and can also be burning and jabbing. Worst: 7/10 Agg: anything over head, doing her hair. Eases: rest, steroid. Aches with cold. Best: 0/10. Right hand dominate. Has some neck pain but feels like its from not sleeping well. No STACK, blurred vision or dizziness. Sleep: hard to get comfortable- normally a side sleeper- she can't currently sleep on that side- she has a water bed- so she is sleeping on the couch. 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 Workout: 3x a week at - she had an extensive exercise program but is not doing it anymore due to the overhead pain- still does bicep curls- no cardio due to ankle pain. PMHx: none Meds: steroids, Meloxicam, Potassium - Objective Posture: FH, RS- can correct with verbal and tactile cues but does not maintain. Gait: no deviation noted- good arm swing and trunk rotation. Palpation: tender along bicipital groove and AC joint. Sensation: WNL to gross touch. ROM: Cervical: WNL, AROM Shoulder: 120 degrees, Abd: 80 degrees, IR: pocket, ER: 50 degrees. PROM: WFL in all planes. Strength: Bread Distributor: 60lbs, Elbow: 4+/5, Wrist: 5/5, Shoulder: 4/5 at neutral in available range. - Special Tests L Shoulder Lift Off Test - Subscapular Tear: Positive L Shoulder Drop Sign - IS Test: Positive L Shoulder Empty Can - SS: Positive L Shoulder Belly Press - SupScap: Positive L Shoulder Neer - Impingement: Positive L Shoulder Gutierrez Jonatan - Impingement: Positive - Balance/Special Test Scores Quick DASH Score: 56.8175 - Goals Goal 1:: Patient will be I with HEP and progression Goal Time Frame: 4-6 Weeks Goal 2:: Patient will demo full AROM of the left shoulder Goal Time Frame: 4-6 Weeks Goal 3:: Patient will maintain proper posture t/o tx session to demo increased scap s/s. Goal Time Frame: 4-6 Weeks Goal 4:: Patient will report 80% improvement Goal Time Frame: 4-6 Weeks - Rehabilitation Potential Physical Therapy Diagnosis: Patient presents with hypomobility- she has decreased UE and scapular strength/stabilization, AROM and muscular endurance leading to poor posture and increased pain with ADL's. Rehabilitation Potential: Good - Anticipated Interventions Patient/Client Instruction: Educate patient on: Benefits of Fitness Program Therapeutic Exercise to Include: Strength training, Endurance training, Coordination, Agility training, Body mechanics, Postural training, Neuromotor development, Passive ROM, Active ROM, Dynamic Lumbar Stabilization, Scapular Strength/Stabilization For the Purpose of:: To improve muscle performance and motor function TENS: Yes Cryotherapy (ice pack, ice massage): Yes Thermo therapy (hot pack): Yes Ultrasound (thermal/non thermal): Yes Thank you for the opportunity to evaluate your patient. For Medicare and Medicare HMO plans, please review the plan of care and approve it. It will need to be FAXED BACK to us at [phone] for Medicare purposes. For Medicare only, by signing this I certify the plan of care. Please let me know if there are questions or concerns regarding this plan of care. Physician Signature: Date:
--- NOTE | 2021-08-16 07:51 | HP.PTREVAL ---
RAMANDEEP Ladd, It has been my pleasure to treat VARSHA ALLISON over the last 10 visits for Left Shoulder Pain. Please see the progress note below for an update on the physical therapy plan of care! Subjective: Patient reports that she is better- she still has discomfort more positional 3/10 at the worst. The worst is going out to the side and the cane AAROM exercises abduction. She is sleeping on it for short periods of time. She goes back to the [facility] on August 30. She has done a second round of oral steroids- she did not feel a lot of improvement from the second injection maybe just kept it status quo. Objective/Function: Posture: improved in sitting- mild rounded shoulders Gait: no deviation noted- good arm swing and trunk rotation. Palpation: no tender noted along bicipital groove and AC joint. Sensation: WNL to gross touch. ROM: Cervical: WNL, AROM Shoulder: WFL in all planes with pain at end range flexion and abduction. Strength: Media Associate: 60lbs, Elbow: 4+/5, Wrist: 5/5, Shoulder: 4+/5 at neutral in available range. - Special Tests. L Shoulder Lift Off Test - Subscapular Tear: Positive. L Shoulder Drop Sign - IS Test: Positive. L Shoulder Empty Can - SS: Positive. L Shoulder Belly Press - SupScap: Positive. L Shoulder Neer - Impingement: Positive. L Shoulder Gutierrez Jonatan - Impingement: Positive Plan Plan: 08/16/21: Continue current POC 2x a week for 4 weeks. Reports leaning towards having an injection at next MD apt. Focus on Scapular s/s- muscular imbalance, US and TENS mod of choice. HEP Given IE: Postural Education, scapular retraction, bilateral ER without weights, pec corner stretch Balance/Gait/Functional tests - Balance/Special Test Scores Quick DASH Score: 34.0900 Goals Goal 1:: Patient will be I with HEP and progression Goal Time Frame: 4-6 Weeks Goal Progress: Progressing Goal 2:: Patient will demo full AROM of the left shoulder Goal Time Frame: 4-6 Weeks Goal Progress: Goal Met Goal 3:: Patient will maintain proper posture t/o tx session to demo increased scap s/s. Goal Time Frame: 4-6 Weeks Goal Progress: Progressing Goal 4:: Patient will report 80% improvement Goal Time Frame: 4-6 Weeks Goal Progress: Progressing Anticipated Interventions Patient/Client Instruction: Educate patient on: Benefits of Fitness Program Therapeutic Exercise to Include: Strength training, Endurance training, Coordination, Agility training, Body mechanics, Postural training, Neuromotor development, Passive ROM, Active ROM, Dynamic Lumbar Stabilization, Scapular Strength/Stabilization For the Purpose of:: To improve muscle performance and motor function TENS: Yes Cryotherapy (ice pack, ice massage): Yes Thermo therapy (hot pack): Yes Ultrasound (thermal/non thermal): Yes Please do not hesitate to contact me at [phone] by phone or if you have questions or concerns regarding this new plan of care! Sincerely, RYANN RochaT
--- NOTE | 2021-09-13 09:02 | HP.PTDCSUM_ITS ---
It has been my pleasure to treat VARSHA ALLISON referred by RAMANDEEP Ladd, with the diagnosis of Left Shoulder Pain for a total of 16 visit(s). Discharge Date: Please see the following information for a summary of their discharge status. Subjective: Patient reports that she feels the shoulder is getting progressively better. She is getting stronger and more functional movement. She feels that she is 85% better. She has a gym membership and feels that she can continue to get stronger and stronger. L SH Pain Intensity (Out of 10): 0 % Improvement: 85 Objective/Function: Posture: improved in sitting- mild rounded shoulders Gait: no deviation noted- good arm swing and trunk rotation. Palpation: no tender noted along bicipital groove and AC joint. Sensation: WNL to gross touch. ROM: Cervical: WNL, AROM Shoulder: WFL in all planes without pain at end range flexion and abduction. Strength: Cement Despatch Operator: 60lbs, Elbow: 5/5, Wrist: 5/5, Shoulder: 4+/5 at neutral - Special Tests. L Shoulder Lift Off Test - Subscapular Tear: Positive. L Shoulder Drop Sign - IS Test: Positive. L Shoulder Empty Can - SS: Positive. L Shoulder Belly Press - SupScap: Positive. L Shoulder Neer - Impingement: Positive. L Shoulder Gutierrez Jonatan - Impingement: Positive Goal 1:: Patient will be I with HEP and progression Goal Progress: Goal Met Goal 2:: Patient will demo full AROM of the left shoulder Goal Progress: Goal Met Goal 3:: Patient will maintain proper posture t/o tx session to demo increased scap s/s. Goal Progress: Progressing Goal 4:: Patient will report 80% improvement Goal Progress: Progressing Plan: 09/13/21: Discharge to I HEP. 08/16/21: Continue current POC 2x a week for 4 weeks. Focus on Scapular s/s- muscular imbalance, US and TENS mod of choice If there are questions or concerns regarding this patient's physical therapy, please feel free to call me at [phone]. Thank you for the referral of this patient. Sincerely, Chely Ortega, DPT Balance/Gait/Functional tests - Balance/Special Test Scores Quick DASH Score: 18.1800
== END 2021-09-13 09:58 | disposition home or self-care (01) ==
LOC: PT 08:30
PROVIDERS: PCP Family Medicine Geriatric Medicine; Visit Provider Physician Assistant Surgical
DX: M75.32 Calcific tendinitis of left shoulder (principal); S43.492D Other sprain of left shoulder joint, subsequent encounter
CPT/HCPCS: 97035; 97110; 97140; 97162; 97164

== ENCOUNTER → 2021-11-01 | Outpatient (CLI) | payer BC, SELFPAY ==
[2021-11-01 12:30] LABS: Erythrocyte Sedimentation Rate 11 mm/hr (0-30)
[2021-11-01 12:33] LABS: Absolute Lymphocyte Count 2.59 X10^3/uL (0.83-4.51); Absolute Neutrophil Count 4.9 X10^3/uL (2.0-7.7); Basophil# 0.06 X10^3/uL; Basophil% 0.7 % (0-1); Eosinophil# 0.27 X10^3/uL; Eosinophils% 3.1 % (0-5); Lymphocyte # 2.59 X10^3/ul (0.83-4.51); Mean Corp Hgb Conc 34.1 g/dL (32-36); Mean Corpuscular Hgb 32.2 pg (27.0-32.0); Mean Corpuscular Volume 94.3 fL (81-99); Mean Platelet Vol. 10.7 fl (6.2-12.0); Monocyte# 0.84 X10^3/uL; Monocyte% 9.7 % (0-10); NRBC Flagged by Analyzer 0 % (0-5); Neutrophil # 4.86 X10^3/uL (2.7-7.7); Neutrophil % 56.4 % (47-70); Platelet Count 293 K/mm3 (150-450); RBC Distribution Width CV 12.2 % (11.6-14.6); RBC Distribution Width SD 42.5 fl (35.1-43.9); Red Blood Count 4.35 M/mm3 (4.2-5.4); White Blood Count 8.6 K/mm3 (4.4-11.0)
[2021-11-01 12:42] LABS: Vitamin B12 1200 pg/mL (211-911)
[2021-11-01 12:55] LABS: Hemoglobin A1c 5.3 % (3.8-5.6)
[2021-11-01 13:00] LABS: AST(SGOT) 16 U/L (15-37); Alanine Aminotransfer ALT/SGPT 29 U/L (13-56); Albumin, Serum 3.7 g/dL (3.2-5.0); Alkaline Phosphatase 89 U/L (45-117); Anion Gap 6 (5-15); BUN 13 mg/dL (7-18); BUN/Creat Ratio 17.1 RATIO (10-20); CRP 3.56 mg/L (0.0-3.0); Calcium,Total 9.1 mg/dL (8.5-10.1); Chloride 105 mmol/L (98-107); Creatinine, Serum 0.76 mg/dL (0.55-1.02); EST Glomerular Filtration Rate 84 mL/min (>60); Est Glom Filt Rate - Afr Amer 102 mL/min (>60); Globulin 3.8 g/dL (2.2-4.2); Glucose 73 mg/dL (74-106); Protein, Total 7.5 g/dL (6.4-8.2); Rheumatoid Factor < 10.0 IU/mL (<15); Sodium Level 140 mmol/L (136-145); Uric Acid 5.7 mg/dL (2.6-6.0)
[2021-11-02 15:03] LABS: ANTINUCLEAR ANTIBODIES DIRECT Negative (Negative)
[2021-11-04 11:37] LABS: CCP IgG Antibodies 5 units (0-19)
== END | disposition home or self-care (01) ==
LOC: MTLAB 10:18
PROVIDERS: PCP Family Medicine Geriatric Medicine; Referring Provider Podiatrist; Visit Provider Podiatrist
DX: M76.61 Achilles tendinitis, right leg (principal); M76.821 Posterior tibial tendinitis, right leg
CPT/HCPCS: 36415; 80053; 82607; 83036; 84550; 85025; 85652; 86038; 86140; 86200; 86431

== ENCOUNTER → 2021-12-20 | Outpatient (CLI) | payer BC, SELFPAY ==
[2021-12-20 13:57] LABS: Absolute Lymphocyte Count 2.31 X10^3/uL (0.83-4.51); Absolute Neutrophil Count 4.3 X10^3/uL (2.0-7.7); Basophil# 0.07 X10^3/uL; Basophil% 0.9 % (0-1); Eosinophil# 0.16 X10^3/uL; Eosinophils% 2.1 % (0-5); Hemoglobin 14.5 g/dL (12.0-15.0); Lymphocyte # 2.31 X10^3/ul (0.83-4.51); Lymphocyte % 30.9 % (19-41); Mean Corp Hgb Conc 33.7 g/dL (32-36); Mean Corpuscular Hgb 31.8 pg (27.0-32.0); Mean Corpuscular Volume 94.3 fL (81-99); Mean Platelet Vol. 10.8 fl (6.2-12.0); Monocyte# 0.62 X10^3/uL; Monocyte% 8.3 % (0-10); NRBC Flagged by Analyzer 0 % (0-5); Neutrophil # 4.29 X10^3/uL (2.7-7.7); Neutrophil % 57.5 % (47-70); Platelet Count 301 K/mm3 (150-450); RBC Distribution Width CV 12.6 % (11.6-14.6); RBC Distribution Width SD 43.8 fl (35.1-43.9); Red Blood Count 4.56 M/mm3 (4.2-5.4); White Blood Count 7.5 K/mm3 (4.4-11.0)
[2021-12-20 15:07] LABS: AST(SGOT) 31 U/L (15-37); Alanine Aminotransfer ALT/SGPT 26 U/L (13-56); Albumin, Serum 3.9 g/dL (3.2-5.0); Alkaline Phosphatase 94 U/L (45-117); Anion Gap 6 (5-15); BUN 12 mg/dL (7-18); BUN/Creat Ratio 16.8 RATIO (10-20); Calcium,Total 9.1 mg/dL (8.5-10.1); Chloride 104 mmol/L (98-107); Creatinine, Serum 0.71 mg/dL (0.55-1.02); EST Glomerular Filtration Rate 91 mL/min (>60); Est Glom Filt Rate - Afr Amer 110 mL/min (>60); Glucose 72 mg/dL (74-106); Potassium 4.1 mmol/L (3.5-5.1); Protein, Total 7.9 g/dL (6.4-8.2); Sodium Level 140 mmol/L (136-145); Thyroid Stim Hormone (TSH) 0.65 uIU/mL (0.358-3.74)
== END | disposition home or self-care (01) ==
LOC: POLAB3 09:21
PROVIDERS: PCP Family Medicine Geriatric Medicine; Visit Provider Family Medicine Geriatric Medicine
DX: R53.83 Other fatigue (principal)
CPT/HCPCS: 36415; 80053; 84443; 85025

== ENCOUNTER → 2022-02-16 | Outpatient (CLI) | payer BC, SELFPAY ==
--- NOTE | 2022-02-16 10:50 | NEURO ---
NCS and/or EMG Patient Report Ordering Doctor: Michael Gillespie DATE OF SERVICE: 02/16/22 Huan presents for electrodiagnostic testing of the lower limbs. She has pain around both ankles with weakness. She has intermittent lower back pain. Electrodiagnostic findings: Peroneal motor nerve demonstrates normal distal latency, amplitude and conduction velocity bilaterally. Normal tibial motor response bilaterally. Normal peroneal and tibial F waves. Borderline prolonged H reflex bilaterally. Sensory responses are within normal limits. On needle EMG, all muscles tested in the lower limbs, as well as the lumbar paraspinals, showed no evidence of denervation with normal motor unit action potentials. Electrodiagnostic impression: This is a normal electrodiagnostic study of the lower limbs. There is no electrodiagnostic evidence for peripheral neuropathy or lumbosacral radiculopathy.
== END | disposition home or self-care (01) ==
PROVIDERS: PCP Family Medicine Geriatric Medicine; Referring Provider Podiatrist; Visit Provider Podiatrist
DX: M25.572 Pain in left ankle and joints of left foot (principal); M25.571 Pain in right ankle and joints of right foot; M79.2 Neuralgia and neuritis, unspecified; R53.1 Weakness
CPT/HCPCS: 95886; 95913

== ENCOUNTER → 2022-04-04 | Outpatient (CLI) | payer BC, SELFPAY ==
--- NOTE | 2022-04-04 11:56 | BI_ITS ---
MAMMOGRAPHY - BILATERAL SCREENING REASON FOR EXAM: Female, 52 years old. Routine annual screening examination. PERTINENT HISTORY: Grandmother with breast cancer. TECHNIQUE: Digital bilateral breast mallika (3D mammographic acquisition) in the CC and MLO projections. 2-D mediolateral oblique (MLO) and craniocaudad (CC) views of both breasts were obtained. CAD: Full Field Digital Mammography with Computer Added Detection was performed. COMPARISON: Comparison is made with prior study dated 03/15/2021 and 03/30/2011. FINDINGS: Breast Composition: The breasts are heterogeneously dense, which may obscure small masses. There are no dominant masses or suspicious calcifications. Stable benign-appearing bilateral axillary lymph nodes. A tissue clip marker is once again seen in the central retroareolar region of the left breast. No other significant abnormalities are identified. There has been no significant change since the prior study. BI/SCRN MAMM (CAD)W/MALLIKA BILAT IMPRESSION: Stable bilateral screening mammogram. Yearly follow-up mammogram recommended. (A) ASSESSMENT CATEGORY: BIRADS Category 2: Benign. A letter regarding these results will be sent to the patient by the facility within 30 days. Approximately 10% of breast cancers are not detected by mammography. A normal mammogram should not delay biopsy of a clinically suspicious abnormality. [id number] Electronically Signed: Morgan Corbett MD at 13:06 EST ,
== END | disposition home or self-care (01) ==
LOC: OPBI 11:55
PROVIDERS: PCP Family Medicine Geriatric Medicine; Referring Provider Obstetrics & Gynecology; Visit Provider Obstetrics & Gynecology
DX: Z12.31 Encounter for screening mammogram for malignant neoplasm of breast (principal)
CPT/HCPCS: 77063; 77067

== ENCOUNTER → 2022-12-05 | Outpatient (CLI) | payer BC, SELFPAY ==
[2022-12-05 12:24] LABS: Absolute Lymphocyte Count 3.29 X10^3/uL (0.83-4.51); Basophil# 0.08 X10^3/uL; Eosinophil# 0.27 X10^3/uL; Eosinophils% 3.2 % (0-5); Hematocrit 42.7 % (37-47); Hemoglobin 14.2 g/dL (12.0-15.0); Lymphocyte # 3.29 X10^3/ul (0.83-4.51); Lymphocyte % 39.3 % (19-41); Mean Corp Hgb Conc 33.3 g/dL (32-36); Mean Corpuscular Hgb 31.4 pg (27.0-32.0); Mean Corpuscular Volume 94.5 fL (81-99); Mean Platelet Vol. 10.9 fl (6.2-12.0); Monocyte# 0.69 X10^3/uL; Monocyte% 8.2 % (0-10); NRBC Flagged by Analyzer 0 % (0-5); Neutrophil # 4.02 X10^3/uL (2.7-7.7); Neutrophil % 48.1 % (47-70); Platelet Count 299 K/mm3 (150-450); RBC Distribution Width CV 11.9 % (11.6-14.6); RBC Distribution Width SD 41.3 fl (35.1-43.9); Red Blood Count 4.52 M/mm3 (4.2-5.4); White Blood Count 8.4 K/mm3 (4.4-11.0)
[2022-12-05 13:01] LABS: ALB/GLOB Ratio 0.9 RATIO (0.9-2.4); AST(SGOT) 20 U/L (15-37); Alanine Aminotransfer ALT/SGPT 28 U/L (13-56); Albumin, Serum 3.7 g/dL (3.2-5.0); Alkaline Phosphatase 110 U/L (45-117); Anion Gap 5 (5-15); BUN 13 mg/dL (7-18); BUN/Creat Ratio 16.5 RATIO (10-20); Calcium,Total 8.8 mg/dL (8.5-10.1); Chloride 104 mmol/L (98-107); Creatinine, Serum 0.79 mg/dL (0.55-1.02); EST Glomerular Filtration Rate 80 mL/min (>60); Est Glom Filt Rate - Afr Amer 97 mL/min (>60); Globulin 4.1 g/dL (2.2-4.2); Glucose 88 mg/dL (74-106); Potassium 3.9 mmol/L (3.5-5.1); Protein, Total 7.8 g/dL (6.4-8.2); Sodium Level 139 mmol/L (136-145); Thyroid Stim Hormone (TSH) 0.81 uIU/mL (0.358-3.74)
== END | disposition home or self-care (01) ==
LOC: POLAB3 11:33
PROVIDERS: PCP Family Medicine Geriatric Medicine; Visit Provider Family Medicine Geriatric Medicine
DX: R53.83 Other fatigue (principal)
CPT/HCPCS: 36415; 80053; 84443; 85025

== ENCOUNTER → 2023-02-17 | Outpatient (CLI) | payer BC, SELFPAY ==
--- NOTE | 2023-02-17 15:34 | MRI_ITS ---
STUDY: MRI LEFT ANKLE WITHOUT CONTRAST REASON FOR EXAM: Female, 53 years old. Achilles tendinitis, complaining of pain around sides of heel and Achilles area. TECHNIQUE: Standardized fat and water weighted pulse sequences were obtained in all 3 orthogonal planes. COMPARISON: None. FINDINGS: Normal posterior tibialis tendon. Normal flexor digitorum longus tendon. Normal flexor hallucis longus tendon. Normal peroneus longus and brevis tendons. Normal tibialis anterior tendon. Normal extensor hallucis longus tendon. Normal extensor digitorum longus tendons. Normal Achilles tendon and teno-osseous insertion. Normal plantar fascia. Normal plantar calcaneal tubercles. Normal intrinsic muscles of the rearfoot. Normal distal tibiofibular syndesmotic ligamentous complex. Normal lateral ligamentous complex. Normal subtalar ligaments and sinus tarsi. Normal deltoid ligamentous complex. Normal plantar calcaneonavicular (spring) ligament. Normal tibiotalar articulation. Normal talar dome. Normal subtalar articulations. Normal talonavicular articulation. Normal calcaneocuboid articulation. Normal navicular-cuneiform articulations. There is minimal subcutaneous soft tissue edema along the medial and lateral aspects of the ankle. MRI/Lower Ext Joint Only (Routine) IMPRESSION: Normal left Achilles tendon. Minimal subcutaneous soft tissue edema along the medial and lateral aspects of the ankle. Electronically Signed: Nando Christianson MD at 8:20 EST ,
--- NOTE | 2023-02-17 15:35 | MRI_ITS ---
STUDY: MRI RIGHT ANKLE WITHOUT CONTRAST REASON FOR EXAM: Female, 53 years old. Achilles tendinitis, right ankle. TECHNIQUE: Standardized fat and water weighted pulse sequences were obtained in all 3 orthogonal planes. COMPARISON: None. FINDINGS: Normal posterior tibialis tendon. Normal flexor digitorum longus tendon. Normal flexor hallucis longus tendon. Normal peroneus longus and brevis tendons. Normal tibialis anterior tendon. Normal extensor hallucis longus tendon. Normal extensor digitorum longus tendons. Normal Achilles tendon and teno-osseous insertion. Normal plantar fascia. Normal plantar calcaneal tubercles. Normal intrinsic muscles of the rearfoot. Normal distal tibiofibular syndesmotic ligamentous complex. Normal lateral ligamentous complex. Normal subtalar ligaments and sinus tarsi. Normal deltoid ligamentous complex. Normal plantar calcaneonavicular (spring) ligament. Normal tibiotalar articulation. Normal talar dome. Normal subtalar articulations. Normal talonavicular articulation. Normal calcaneocuboid articulation. Normal navicular-cuneiform articulations. There is very minimal subcutaneous soft tissue edema along the medial and lateral aspects of the ankle. MRI/Lower Ext Joint Only (Routine) IMPRESSION: Normal right Achilles tendon. Very minimal subcutaneous soft tissue edema along the medial and lateral aspects of the ankle. Electronically Signed: Nando Christianson MD at 8:17 EST ,
== END | disposition home or self-care (01) ==
PROVIDERS: PCP Family Medicine Geriatric Medicine; Referring Provider Podiatrist; Visit Provider Podiatrist
DX: M76.61 Achilles tendinitis, right leg (principal); M76.62 Achilles tendinitis, left leg
CPT/HCPCS: 73721

== ENCOUNTER → 2023-03-20 | Outpatient (CLI) | payer BC, SELFPAY ==
--- OUTSIDE RECORDS SUMMARY | 2023-03-20 15:40 | XMS RPT_ITS | CCD ---
Author Name Unknown Address [address] [place] [address] Organization [facility] Care Team Providers Care Director Surface Transportation Name Role Phone CECE JUAN Unavailable Unavailable IRASEMA, AUDELIA-CHI Unavailable Unavailable CECE JUAN Unavailable Unavailable IRASEMA, AUDELIA-CHI Unavailable Unavailable Results Test Name Value Interpretation Reference Range Facil ity Encounters Encounter Date Encounter Type Care Provider Facility Start: 04-21-2017 End: 04-22-2017 Ambulatory CECE JUAN Facility:[facility] Start: 04-14-2017 End: 04-15-2017 Ambulatory [facility] YESSICA Facility:[facility] Payers Date Payer Category Payer Unknown [id number] Progress note 10-26-2021 Note Date & Type Note Facility 10-26-2021 Note HNO ID: [id number] Author: ALESSANDRO Gonzalez) Service: ? Author Type: Technologist Type: Progress Notes Filed: 10/26/2021 12:03 PM Note Text: Radiology Service Progress Note PATIENT NAME: Varsha Burks DATE OF SERVICE: October 26, 2021 TIME: 12:03 PM PATIENT IDENTITY VERIFICATION COMPLETED USING TWO (2) IDENTIFIERS: Name and Date of confirmed by patient verbally. FALL SCREENING: Has the patient had 2 falls in the last year or 1 fall with injury or currently using an Ambulatory Assistive Device (Walker, Cane, Wheelchair, Crutches, etc.)? No PATIENT GENDER DATA: Female. status: : No status: NO. PATIENT RELEVANT IMPLANT DATA REVIEWED: Yes RADIOLOGY DEPARTMENT: MR; Exam(s) Completed: Lower MSK: Ankle/Hind Foot, right PERIPHERAL IV DATA: Not applicable SIGNED BY: ALESSANDRO Gonzalez) October 26, 2021 12:03 PM [facility] Summary Purpose Family History No Family History Records FoundNo Family History Records Found Advance Directives No Advanced Directives Records FoundNo Advanced Directives Records Found Additional Source Comments INFORMATION SOURCE (unrecogn ized section and content) DATE CREATED AUTHOR AUTHOR'S ALONDRA SELF 10/26/2021 [facility] FOR RECORDS PERTAINING TO PATIENTS WHO ARE OR HAVE BEEN ENROLLED IN A CHEMICAL DEPENDENCY/SUBSTANCEABUSE PROGRAM, SOME INFORMATION MAY BE OMITTED. This clinical summary was aggregated from multiple sources. Caution should be exercised in using it in the provision of clinical care. This summary normalizes information from multiple sources, and as a consequence, information in this document may materially change the coding, format and clinical context of patient data. In addition, data may be omitted in some cases. CLINICAL DECISIONS SHOULD BE BASED ON THE PRIMARY CLINICAL RECORDS. [employer] provides no warranty or guarantee of the accuracy or completeness of information in this document.
[2023-03-20 16:59] LABS: Anion Gap 5 (5-15); BUN 14 mg/dL (7-18); Calcium,Total 8.6 mg/dL (8.5-10.1); Chloride 103 mmol/L (98-107); EST Glomerular Filtration Rate 92 mL/min (>60); Est Glom Filt Rate - Afr Amer 112 mL/min (>60); Glucose 135 mg/dL (74-106); Potassium 3.4 mmol/L (3.5-5.1); Sodium Level 137 mmol/L (136-145)
[2023-03-20 17:07] LABS: Absolute Neutrophil Count 4.2 X10^3/uL (2.0-7.7); Basophil# 0.07 X10^3/uL; Basophil% 0.9 % (0-1); Eosinophil# 0.28 X10^3/uL; Eosinophils% 3.5 % (0-5); Hematocrit 42.5 % (37-47); Hemoglobin 14.4 g/dL (12.0-15.0); Lymphocyte % 35.9 % (19-41); Mean Corp Hgb Conc 33.9 g/dL (32-36); Mean Corpuscular Hgb 30.6 pg (27.0-32.0); Mean Corpuscular Volume 90.4 fL (81-99); Mean Platelet Vol. 11.1 fl (6.2-12.0); Monocyte# 0.58 X10^3/uL; Monocyte% 7.2 % (0-10); NRBC Flagged by Analyzer 0 % (0-5); Neutrophil # 4.24 X10^3/uL (2.7-7.7); Neutrophil % 52.4 % (47-70); Platelet Count 275 K/mm3 (150-450); RBC Distribution Width CV 11.6 % (11.6-14.6); RBC Distribution Width SD 38.4 fl (35.1-43.9); White Blood Count 8.1 K/mm3 (4.4-11.0)
[2023-03-20 17:22] LABS: Prothrombin Time (Protime)PT. 13.4 SECONDS (11.7-14.9)
== END | disposition home or self-care (01) ==
LOC: POLAB3 15:23
PROVIDERS: PCP Family Medicine Geriatric Medicine; Visit Provider Family Medicine Geriatric Medicine
DX: E78.5 Hyperlipidemia, unspecified (principal); R53.83 Other fatigue
CPT/HCPCS: 36415; 80048; 85025; 85610

== ENCOUNTER → 2023-06-28 | Outpatient (CLI) | payer BC, SELFPAY ==
[2023-07-04 16:11] LABS: HPV APTIMA, High Risk Negative (Negative)
== END | disposition home or self-care (01) ==
LOC: LABSPEC 16:41
PROVIDERS: Referring Provider Nurse Practitioner Family; Visit Provider Nurse Practitioner Family
DX: Z12.4 Encounter for screening for malignant neoplasm of cervix (principal)
CPT/HCPCS: 87624; 88175; G0145

== ENCOUNTER → 2023-07-12 | Outpatient (CLI) | payer BC, SELFPAY ==
--- NOTE | 2023-07-12 13:41 | BI_ITS ---
MAMMOGRAPHY - BILATERAL SCREENING 3-D TOMOSYNTHESIS REASON FOR EXAM: Female, 53 years old. screening mammogram PERTINENT HISTORY: No significant family history. TECHNIQUE: 2-D mammograms and 3-D Tomosynthesis of the breast (s) were performed. CAD was performed. COMPARISON: 04/04/2022 FINDINGS: The breast composition is composed of scattered fibroglandular density. Scattered benign calcifications are seen. No dense spiculated masses or suspicious microcalcifications are identified. No architectural distortion is identified. There is no skin thickening or retraction. There has been no significant change since the prior study. BI/SCRN MAMM (CAD)W/MALLIKA BILAT IMPRESSION: No mammographic signs of malignancy. Routine yearly mammograms recommended. ASSESSMENT CATEGORY: BIRADS Category 1: Negative. A letter regarding these results will be sent to the patient by the facility within 30 days. FOLLOW UP RECOMMENDATION: Yearly follow up mammogram recommended. (A) Approximately 10% of breast cancers are not detected by mammography. A normal mammogram should not delay biopsy of a clinically suspicious abnormality. Electronically Signed: Darin Qureshi MD at 15:09 EDT ,
== END | disposition home or self-care (01) ==
LOC: OPBI 13:41
PROVIDERS: PCP Family Medicine Geriatric Medicine; Referring Provider Nurse Practitioner Family; Visit Provider Nurse Practitioner Family
DX: Z12.31 Encounter for screening mammogram for malignant neoplasm of breast (principal)
CPT/HCPCS: 77063; 77067

== ENCOUNTER → 2023-07-19 | Outpatient (CLI) | payer BC, SELFPAY ==
--- NOTE | 2023-07-19 08:45 | US_ITS ---
STUDY: ULTRASOUND OF THE FEMALE PELVIS - COMPLETE REASON FOR EXAM: Female, 53 years old. confirm IUD placement LMP: TECHNIQUE: TECHNICAL QUALITY: Limited. COMPARISON: None. FINDINGS: The uterus is anteverted and is tilted to the right side of the pelvis. The uterus measures 9.1 x 4.0 x 3.7 cm. Normal uterine cervix. The endometrium measures 5 mm in thickness, and is hyperechoic There is an IUD located in the mid to lower endometrial cavity extending into the endocervical canal. This is not the typical position. It is not situated in the fundus. The right ovary is visualized. The right ovary measures 2.8 x 2.4 x 2.2 cm. There is a 1.5 cm cyst. There is no visualized right adnexal mass or complex lesion. There is normal arterial and normal venous vascularity. The left ovary is visualized. The left ovary measures 2.8 x 1.9 x 1.8 cm. There is no left ovarian cyst or ovarian mass. There is no visualized left adnexal mass or complex lesion. There is normal arterial and normal venous vascularity. There is no fluid in the cul-de-sac. The pre void volume of the bladder was 485 ml. US/Pelvic (Non ) IMPRESSION: Limited visualization of the uterus. There is an IUD in the lower endometrial cavity and endocervical canal which is not typical position. It is not in the fundus. Electronically Signed: Julio Cesar Stack MD at 17:37 EDT ,
== END | disposition home or self-care (01) ==
LOC: OPUS 08:44
PROVIDERS: PCP Family Medicine Geriatric Medicine; Referring Provider Nurse Practitioner Family; Visit Provider Nurse Practitioner Family
DX: Z30.430 Encounter for insertion of intrauterine contraceptive device (principal)
CPT/HCPCS: 76830; 76856

== ENCOUNTER → 2023-12-11 | Outpatient (CLI) | payer BC, SELFPAY ==
[2023-12-11 13:29] LABS: Absolute Lymphocyte Count 2.72 X10^3/uL (0.83-4.51); Absolute Neutrophil Count 7.9 X10^3/uL (2.0-7.7); Basophil# 0.06 X10^3/uL; Basophil% 0.5 % (0-1); Eosinophils% 1.7 % (0-5); Hemoglobin 14.7 g/dL (12.0-15.0); Lymphocyte # 2.72 X10^3/ul (0.83-4.51); Lymphocyte % 23.6 % (19-41); Mean Corp Hgb Conc 32.7 g/dL (32-36); Mean Corpuscular Hgb 30.2 pg (27.0-32.0); Mean Corpuscular Volume 92.4 fL (81-99); Monocyte# 0.64 X10^3/uL; Monocyte% 5.6 % (0-10); NRBC Flagged by Analyzer 0 % (0-5); Neutrophil # 7.85 X10^3/uL (2.7-7.7); Neutrophil % 68.1 % (47-70); Platelet Count 306 K/mm3 (150-450); RBC Distribution Width CV 12.5 % (11.6-14.6); RBC Distribution Width SD 42.5 fl (35.1-43.9); Red Blood Count 4.87 M/mm3 (4.2-5.4); White Blood Count 11.5 K/mm3 (4.4-11.0)
[2023-12-11 14:13] LABS: ALB/GLOB Ratio 0.9 RATIO (0.9-2.4); AST(SGOT) 17 U/L (15-37); Alanine Aminotransfer ALT/SGPT 24 U/L (13-56); Albumin, Serum 3.6 g/dL (3.2-5.0); Alkaline Phosphatase 136 U/L (45-117); Anion Gap 6 (5-15); BUN 12 mg/dL (7-18); BUN/Creat Ratio 15.4 RATIO (10-20); Chloride 103 mmol/L (98-107); Creatinine, Serum 0.78 mg/dL (0.55-1.02); EST Glomerular Filtration Rate 82 mL/min (>60); Est Glom Filt Rate - Afr Amer 99 mL/min (>60); Globulin 4.1 g/dL (2.2-4.2); Glucose 133 mg/dL (74-106); Potassium 3.6 mmol/L (3.5-5.1); Protein, Total 7.7 g/dL (6.4-8.2); Sodium Level 139 mmol/L (136-145); Thyroid Stim Hormone (TSH) 0.363 uIU/mL (0.358-3.740)
== END | disposition home or self-care (01) ==
LOC: POLAB3 13:06
PROVIDERS: PCP Family Medicine Geriatric Medicine; Visit Provider Family Medicine Geriatric Medicine
DX: R53.83 Other fatigue (principal)
CPT/HCPCS: 36415; 80053; 84443; 85025

== ENCOUNTER → 2024-07-03 | Outpatient (CLI) | payer BC, SELFPAY ==
[2024-07-03 12:09] LABS: Absolute Lymphocyte Count 2.45 X10^3/uL (0.83-4.51); Absolute Neutrophil Count 4.3 X10^3/uL (2.0-7.7); Basophil# 0.07 X10^3/uL; Basophil% 0.9 % (0-1); Eosinophil# 0.27 X10^3/uL; Eosinophils% 3.4 % (0-5); Hematocrit 41.8 % (37-47); Hemoglobin 13.8 g/dL (12.0-15.0); Lymphocyte # 2.45 X10^3/ul (0.83-4.51); Lymphocyte % 30.8 % (19-41); Mean Corpuscular Hgb 30.7 pg (27.0-32.0); Mean Corpuscular Volume 93.1 fL (81-99); Mean Platelet Vol. 10.7 fl (6.2-12.0); Monocyte# 0.87 X10^3/uL; Monocyte% 10.9 % (0-10); NRBC Flagged by Analyzer 0 % (0-5); Neutrophil # 4.26 X10^3/uL (2.7-7.7); Neutrophil % 53.6 % (47-70); Platelet Count 319 K/mm3 (150-450); RBC Distribution Width CV 13.3 % (11.6-14.6); RBC Distribution Width SD 45.4 fl (35.1-43.9); Red Blood Count 4.49 M/mm3 (4.2-5.4)
[2024-07-03 12:31] LABS: ALB/GLOB Ratio 1.3 RATIO (0.9-2.4); AST(SGOT) 26 U/L (<=31); Alanine Aminotransfer ALT/SGPT 26 U/L (<=34); Albumin, Serum 4.1 g/dL (3.5-5.0); Alkaline Phosphatase 114 U/L (35-104); Amylase 57 U/L (28-100); Anion Gap 9 (5-15); BUN 12 mg/dL (4-19); BUN/Creat Ratio 16.7 RATIO (10-20); Bilirubin, Direct 0.12 mg/dL (0.00-0.30); Calcium,Total 9.2 mg/dL (7.6-11.0); Carbon Dioxide 26.7 mmol/L (21.0-32.0); Chloride 100 mmol/L (98-108); Creatinine, Serum 0.69 mg/dL (0.70-1.20); EST Glomerular Filtration Rate 102 (>60); Globulin 3.1 g/dL (2.2-4.2); Glucose 86 mg/dL (70-99); Lipase 35 U/L (13-75); Potassium 4.5 mmol/L (3.3-5.1); Protein, Total 7.2 g/dL (5.9-8.4); Sodium Level 135 mmol/L (133-145)
== END | disposition home or self-care (01) ==
PROVIDERS: PCP Family Medicine Geriatric Medicine; Referring Provider Nurse Practitioner Family; Visit Provider Nurse Practitioner Family
DX: R53.83 Other fatigue (principal)
CPT/HCPCS: 36415; 80053; 82150; 82248; 83690; 85025

== ENCOUNTER → 2024-07-12 | Outpatient (CLI) | payer BC, SELFPAY ==
--- NOTE | 2024-07-12 07:26 | US_ITS ---
EXAM: US Abdomen Complete CLINICAL INDICATION: ABDOMINAL PAIN TECHNIQUE: Real-time ultrasound of the abdomen with image documentation. COMPARISON: No relevant prior studies available. FINDINGS: LIVER: Liver measures up to 14.7 cm. Fatty infiltration of the liver. No intrahepatic bile duct dilation. GALLBLADDER: Unremarkable. No gallstones. COMMON BILE DUCT: Unremarkable as visualized. No stones. No dilation. Common bile duct measures 0.36 cm in diameter. PANCREAS: Unremarkable as visualized. KIDNEYS: Echogenic kidney could be fatty infiltration. No stones. No hydronephrosis. The right kidney measures 11.7 x 5.6 x 4.7 cm. The left kidney measures 11.1 x 4.7 x 5.6 cm. SPLEEN: Spleen measures up to 10.6 cm. AORTA: Unremarkable. No aneurysm. INFERIOR VENA CAVA: Unremarkable. US/Abdomen Complete IMPRESSION: Fatty infiltration of the liver. Reading Location: [facility]
== END | disposition home or self-care (01) ==
PROVIDERS: PCP Family Medicine Geriatric Medicine; Referring Provider Nurse Practitioner Family; Visit Provider Nurse Practitioner Family
DX: R10.9 Unspecified abdominal pain (principal)
CPT/HCPCS: 76700

== ENCOUNTER → 2024-07-13 | Outpatient (CLI) | payer BC, SELFPAY ==
--- NOTE | 2024-07-13 08:52 | US_ITS ---
PROCEDURE: PELVIC W/ TRANSVAGINAL 07/13/2024 REASON FOR EXAM: PELVIC PAIN TECHNIQUE: Transabdominal pelvic ultrasound COMPARISON: None FINDINGS: Measurements: Uterus: 11.6 cm x 4.6 cm x 4 cm with a volume of 113 mL Endometrial Thickness: 11.4 mm Right Ovary: 3.2 cm x 2.2 cm x 2.3 cm with a volume of 8.62 mL. Left Ovary: 2.9 cm x 1.5 cm x 1.8 cm with a volume of 4.12 mL. Uterus: There are 2 small calcified fibroids. Endometrium: Endometrium is thickened for the postmenopausal state. Nabothian cyst. Right ovary: 2 cm x 2 cm x 1.9 cm right ovarian cyst. Left ovary: Normal size and echotexture. Other: No large pelvic mass identified. US/Pelvic w/ Transvaginal IMPRESSION: Fibroid uterus. Endometrial thickening. 2 cm x 2 cm x 1.9 cm right ovarian cyst. 2 small uterine fibroids. Reading Location: [place] [address]
== END | disposition home or self-care (01) ==
PROVIDERS: PCP Family Medicine Geriatric Medicine; Referring Provider Nurse Practitioner Family; Visit Provider Nurse Practitioner Family
DX: R10.2 Pelvic and perineal pain (principal)
CPT/HCPCS: 76830; 76856

== ENCOUNTER → 2024-07-22 | Outpatient (CLI) | payer BC, SELFPAY ==
--- NOTE | 2024-07-22 14:10 | BI_ITS ---
EXAM: SCRN MAMM (CAD)W/MALLIKA BILAT DATE: 07/22/2024 CLINICAL HISTORY: F, Age 54 y/o , SCREENING MAMMOGRAM FOR BREAST CANCER BREAST CANCER RISK ASSESSMENT: Has not been calculated. TECHNIQUE: Bilateral screening digital breast tomosynthesis with 2D and 3D images. Computer aided detection. COMPARISON: Prior exam(s) dated 07/12/2023 and 04/04/2022. FINDINGS: TISSUE DENSITY: The breast tissue is composed of scattered area of fibroglandular density. Bilateral Breast Mammographic Findings: They are no suspicious masses, suspicious cluster of microcalcifications, architectural distortion or secondary signs of malignancy identified in either breast. Partially obscured, stable, isodense masses are seen in both breasts. Benign-appearing round microcalcifications are seen in the right breast. BI/SCRN MAMM (CAD)W/MALLIKA BILAT IMPRESSION: OVERALL FINAL ASSESSMENT: BIRADS 2 BENIGN FINDING RECOMMENDATION: Routine annual follow-up in 1 Year A letter with findings and recommendations will be mailed to the patient. Reading Location: [id number]
== END | disposition home or self-care (01) ==
LOC: OPBI 14:09
PROVIDERS: PCP Family Medicine Geriatric Medicine; Referring Provider Nurse Practitioner Family; Visit Provider Nurse Practitioner Family
DX: Z12.31 Encounter for screening mammogram for malignant neoplasm of breast (principal)
CPT/HCPCS: 77063; 77067

== ENCOUNTER → 2024-12-11 | Outpatient (CLI) | payer BC, SELFPAY ==
[2024-12-11 13:21] LABS: Hematocrit 42.2 % (37-47); Hemoglobin 14.6 g/dL (12.0-15.0); Immature Granulocytes Count 0.020 X10^3/uL (0.0-0.0); Mean Corp Hgb Conc 34.6 g/dL (32-36); Mean Corpuscular Volume 90.9 fL (81-99); Mean Platelet Vol. 11.0 fl (6.2-12.0); NRBC Flagged by Analyzer 0 % (0-5); Platelet Count 325 K/mm3 (150-450); RBC Distribution Width CV 12.3 % (11.6-14.6); RBC Distribution Width SD 41.1 fl (35.1-43.9); Red Blood Count 4.64 M/mm3 (4.2-5.4); White Blood Count 8.3 K/mm3 (4.4-11.0)
== END | disposition home or self-care (01) ==
LOC: POLAB3 13:00
PROVIDERS: PCP Family Medicine Geriatric Medicine; Visit Provider Family Medicine Geriatric Medicine
DX: R53.83 Other fatigue (principal)
CPT/HCPCS: 36415; 85025

== ENCOUNTER → 2024-12-16 | Outpatient (CLI) | payer BC, SELFPAY ==
[2024-12-16 10:34] LABS: AST(SGOT) 22 U/L (<=31); Alanine Aminotransfer ALT/SGPT 22 U/L (<=34); Albumin, Serum 4.2 g/dL (3.5-5.0); Alkaline Phosphatase 128 U/L (35-104); Anion Gap 9 (5-15); BUN 13 mg/dL (4-19); BUN/Creat Ratio 16.5 RATIO (10-20); Calcium,Total 9.2 mg/dL (7.6-11.0); Carbon Dioxide 29.1 mmol/L (21.0-32.0); Chloride 103 mmol/L (98-108); Globulin 3.2 g/dL (2.2-4.2); Glucose 101 mg/dL (70-99); Potassium 4.3 mmol/L (3.3-5.1)
== END | disposition home or self-care (01) ==
LOC: POLAB3 09:31
PROVIDERS: PCP Family Medicine Geriatric Medicine; Visit Provider Family Medicine Geriatric Medicine
DX: R53.83 Other fatigue (principal)
CPT/HCPCS: 80053; 84443

== ENCOUNTER → 2025-01-13 | Outpatient (CLI) | payer BC, SELFPAY ==
[2025-01-13 17:29] LABS: CPK Total, Creatine Kinase 87 U/L (24-195); Vitamin B12 1581 pg/mL (180-914)
[2025-01-13 17:46] LABS: CRP 5.23 mg/L (0.0-3.0); Magnesium 2.2 mg/dL (1.5-2.2)
[2025-01-13 17:53] LABS: LDH 171 U/L (84-246)
[2025-01-13 18:02] LABS: FOLATES,SERUM (FOLIC ACID) > 40.00 ng/mL (4.60-34.80)
[2025-01-19 16:07] LABS: Anti-Chromatin <0.2 AI (0.0-0.9); Anti-Jo <0.2 AI (0.0-0.9); Anti-dsDNA Ab 1 IU/mL (0-9); Egg, Whole <0.10 kU/L (Class 0); Mussels <0.10 kU/L (Class 0); SJOGREN'S Anti-SS-A test < 0.2 AI (0.0-0.9); SJOGREN'S Anti-SS-B test < 0.2 AI (0.0-0.9); Vitamin D 1,25-Dihydroxy 29.7 pg/mL (24.8-81.5)
[2025-01-20 08:08] LABS: ACCA 49 units (0-90); ALCA 21 units (0-60); AMCA 22 units (0-100); Cytoplasmic Ab (C-ANCA) <1:20 titer (Neg:<1:20); Immunoglobulin A 458 mg/dL (87-352); Immunoglobulin G 1236 mg/dL (586-1602); Immunoglobulin M 108 mg/dL (26-217); Perinuclear Ab (P-ANCA) <1:20 titer (Neg:<1:20)
== END | disposition home or self-care (01) ==
LOC: LAB 15:13
PROVIDERS: PCP Family Medicine Geriatric Medicine; Referring Provider Internal Medicine Gastroenterology; Visit Provider Internal Medicine Gastroenterology
DX: R10.11 Right upper quadrant pain (principal)
CPT/HCPCS: 36415; 82085; 82550; 82607; 82652; 82746; 82784; 82785; 83516; 83615; 83735; 84100; 84443; 85652; 86003; 86005; 86036; 86037; 86140; 86225; 86235; 86255; 86671

== ENCOUNTER 2025-02-11 05:23 | Day surgery (SDC) | payer BC, SELFPAY ==
[2025-02-11] VITALS (8 sets, daily range): BP systolic 110–155; BP diastolic 71–83; PULSE 76–81; RESP 16; TEMP 36.1–36.9; O2SAT 99–100; BMI 29.2
--- OUTSIDE RECORDS SUMMARY | 2025-02-11 05:26 | XMS RPT_ITS | CCD ---
Author Organization [facility] Care Team Providers Care Rug Weaver Name Role Phone CECE JUAN Unavailable Unavailable SAVAGE, THIERRY-CHI Unavailable Unavailable CECE JUAN Unavailable Unavailable SAVAGE, THIERRY-CHI Unavailable Unavailable Savage MASSEY, Dr. Thierry Moreland Primary Care Provider Dr. Thierry Wan MD, Chi Referring Provider Augustus POWDER COAT PAINTER-C, Adriana Attending Provider Augustus POWDER COAT PAINTER-C, Adriana Referring Provider Unavailable Primary Care Provider Unavailabl e FRACISCOWELL, MAYLIN Attending Unavailable WISWELL, MAYLIN Referring Unavailable WISWELL, MAYLIN Attending Unavailable WISWELL, MAYLIN Attending Unavailable Savage, Thierry Chi Attending Unavailable Savage, Thierry Chi Primary Care Unavailable Savage, Thierry Chi Primary Care Unavailable Savage, Thierry Chi Referring Unavailable Barkman, Adriana Attending Unavailable Savage, Thierry Chi Primary Care Unavailable Barkman, Adriana Attending Unavailable Barkman, Adriana Referring Unavailable Savage, Thierry Chi Primary Care Unavailable Barkman, Adriana Attending Unavailable Barkman, Adriana Referring Unavailable Savage, Thierry Chi Primary Care Unavailable Barkman, Adriana Referring Unavailable Barkman, Adriana Attending Unavailable Savage, Thierry Chi Primary Care Unavailable Barkman, Adriana Referring Unavailable Barkman, Adriana Attending Unavailable Savage, Thierry Chi Attending Unavailable Savage, Thierry Chi Primary Care Unavailable Medications Current Medications Medication Drug Class(es) Dates Sig (Normalized) Sig (Original) Norgestimate-Ethin yl Estradiol (14 sources) Progestin, Estrogen Start: 05-05-2017 take 1 tablet by mouth once daily Norgestimate-Ethi nyl Estradiol (Ortho-Cyclen (28)) 0.25-35 mg-mcg tablet Active 1 TABLET PO daily May 05, 2017 10:19am Start: 05-05-2017 End: 06-28-2023 Norgestimate-Ethinyl Estradi ol (Ortho-Cyclen (28)) 0.25-35 mg-mcg tablet Discontinued 1 {tbl} PO daily May 05, 2017 12:00am June 28, 2023 2:33pm Start: 05-05-2017 take 1 tablet by dona th once daily Norgestimate-Ethinyl Estradiol (Ortho-Cyclen (28)) 0.25-35 mg-mcg tablet Active 1 TABLET PO daily May 04, 2017 11:00pm Start: 05-05-2017 take 1 tablet by dona th once daily Norgestimate-Ethinyl Estradiol (Ortho-Cyclen (28)) 0.25-35 mg-mcg tablet Active 1 TABLET PO daily May 05, 2017 12:00am Ginkgo Biloba (14 sources) Start: 05-05-2017 take 40 mg by mouth once daily Ginkgo Biloba Active 40 MG PO daily May 05, 2017 10:16am Start: 05-05-2017 End: 06-28-2023 take 1 tablet by mouth once daily Ginkgo Biloba 40 mg tablet Discontinued 40 mg PO daily May 05, 2017 12:00am June 28, 2023 2:33pm Start: 05-05-2017 take 40 mg by mouth once daily Ginkgo Biloba Active 40 MG PO daily May 04, 2017 11:00pm Start: 05-05-2017 take 40 mg by mouth once daily Ginkgo Biloba Active 40 MG PO daily May 05, 2017 12:00am levonorgestrel 0.949978 mg/hr intrauterine system (5 sources) Progestin, Progestin-containing Intrauterine Device Start: 06-28-2023 Levonorgestrel (Mirena) 21 mcg/24 hr (8 yrs) 52 mg intrauterine device Active 1 NMA INTRA-UTER ONCE June 28, 2023 12:00am as a single dose loratadine 10 mg oral tablet (5 sources) Start: 07-03-2024 take 1 tablet by mouth once daily Loratadine (Claritin) 10 mg tablet Active 10 mg PO daily July 03, 2024 12:00am multivitamin capsule (9 sources) Start: 05-05-2017 take 1 capsule by mouth once daily in the morning multivitamin capsule Active 1 CAP PO EVERY MORNING May 05, 2017 10:15am Start: 05-05-2017 take 1 capsule by mo uth once daily in the morning multivitamin capsule Active 1 CAP PO EVERY MORNING May 04, 2017 11:00pm Start: 05-05-2017 take 1 capsule by mo uth once daily in the morning multivitamin capsule Active 1 CAP PO EVERY MORNING May 05, 2017 12:00am Multivitamin capsule (5 sources) Start: 05-05-2017 Multivitamin c apsule Active 1 NMA PO EVERY MORNING May 05, 2017 12:00am potassium chloride 10 meq extended release oral tablet (2 sources) Start: 01-13-2020 take 1 tablet by mouth once daily potassium chloride (K-TAB) 10 mEq tablet Take 10 mEq by mouth once daily. 01/13/2020 Active Completed/Discontinued Medications Medication Drug Class(es) Dates Sig (Normalized) Sig (Original) aspirin 81 mg delayed release oral tablet (14 sources) Platelet Aggregation Inhibitor, Nonsteroidal Anti-inflammatory Drug Start: 05-05-2017 End: 06-28-2023 Aspirin (Adult Low Dose Aspirin) 81 mg tablet,delayed release (DR/EC) Discontinued 81 mg PO .daily May 05, 2017 12:00am June 28, 2023 2:32pm cetirizine hydrochloride 10 mg oral capsule (14 sources) Histamine-1 Receptor Antagonist Start: 05-05-2017 End: 07-03-2024 take 1 capsule by mouth once daily Cetirizine (Zyrtec) 10 mg capsule Discontinued 10 mg PO daily May 05, 2017 12:00am July 03, 2024 10:04am glucosamine sulfate 750 mg oral tablet (14 sources) Start: 05-05-2017 End: 06-28-2023 take 1 tablet by mouth once daily Glucosamine Sulfate 750 mg tablet Discontinued 750 mg PO daily May 05, 2017 12:00am June 28, 2023 2:33pm Problems Active Problems Problem Classification Problem Date Documented Da te Episodic/Chronic Complication of device; implant or graft (5 sources) Malposition of intrauterine contraceptive device; Translations: [Displacement of intrauterine contraceptive device, initial encounter] 08-14-2023 Episodic Comment on above: able to be removed Contraceptive and procreative management (5 sources) Patient encounter status; Translations: [Encounter for insertion of intrauterine contraceptive device] 06-28-2023 Episodic Comment on above: Jan 2019 Malaise and fatigue (2 sources) Other fatigue; Translations: [Other fatigue] Onset: 12-16-2024 Episodic Nonmalignant breast conditions (14 sources) Solitary cyst of breast; Translations: [Solitary cyst of left breast] 02-16-2018 Episodic Comment on above: complicated with thi n septation Other gastrointestinal disorders (2 sources) Abdominal bloating; Translations: [Abdominal distension (gaseous)] 10-14-2024 Episodic Other gastrointestinal disorders (1 source) Finding of abdomen; Translations: [Other specified symptoms and signs involving the digestive system and abdomen] 10-14-2024 Episodic Other gastrointestinal disorders (1 source) Abdominal distension (gaseous); Translations: [Abdominal bloating] Onset: 10-14-2024 Episodic Other gastrointestinal disorders (1 source) Other specified symptoms and signs involving the digestive system and abdomen; Translations: [Abdominal fullness] Onset: 10-14-2024 Episodic Other screening for suspected conditions (not mental disorders or infectious disease) (4 sources) Endometrium thickened; Translations: [Abnormal findings on diagnostic imaging of other specified body structures] Onset: 10-14-2024 10-14-2024 Chronic Other skin disorders (1 source) Night sweats; Translations: [Generalized hyperhidrosis] 10-14-2024 Episodic Ovarian cyst (2 sources) Cyst of ovary; Translations: [Unspecified ovarian cyst, unspecified side] Onset: 11-18-2024 10-14-2024 Episodic Residual codes; unclassified (1 source) Flushing; Translations: [Flushing] 10-14-2024 Episodic Unclassified (1 source) Finding of abdomen 10-14-2024 Past or Other Problems Problem Classification Problem Date Documented Date Episodic/Chronic Abdominal pain (18 sources) Right upper quadrant pain; Translations: [Right upper quadrant pain] Onset: 07-16-2024 07-03-2024 Episodic Endometriosis (12 sources) Endometriosis 09-19-2021 Other screening for suspected conditions (not mental disorders or infectious disease) (2 sources) Encounter for screening mammogram for malignant neoplasm of breast; Translations: [Encounter for screening mammogram for malignant neoplasm of breast] Onset: 07-25-2024 Episodic Results Test Name Value Interpretation Reference Range Facility Comprehensive Metabolic Prof torie 12-16-2024 Albumin [Mass/Vol] 4.2 g/dL Normal 3.5-5.0 [facility] Comment on above: Performed By: #### L [id number], L100.0100, L500.4050 #### [facility] [address] [place], [address] Albumin/Globulin [Mass ratio] 1.3 {ratio} Normal 0.9-2.4 [facility] Comment on above: Performed By: #### L [id number], L100.0100, [id number] #### [facility] [address] [place], [address] ALK PHOS 128 U/L High 35-104 [facility] Comment on above: Performed By: #### L [id number], L100.0100, [id number] #### [facility] [address] [place], [address] ALT [Catalytic activity/Vol] 22 U/L Normal <=34 [facility] Comment on above: Performed By: #### L [id number], L100.0100, [id number] #### [facility] [address] [place], [address] AST [Catalytic activity/Vol] 22 U/L Normal <=31 [facility] Comment on above: Performed By: #### L [id number], L100.0100, [id number] #### [facility] [address] [place], [address] Bilirubin [Mass/Vol] 0.25 mg/dL Normal 0.00-1.30 [facility] Comment on above: Performed By: #### L [id number], L100.0100, [id number] #### [facility] [address] [place], [address] BUN/CRE 16.5 RATIO Normal 10-20 [facility] Comment on above: Performed By: #### L [id number], L100.0100, [id number] #### [facility] [address] [place], [address] Calcium [Mass/Vol] 9.2 mg/dL Normal 7.6-11.0 [facility] Comment on above: Performed By: #### L [id number], L100.0100, [id number] #### [facility] [address] [place], [address] Chloride [Moles/Vol] 103 mmol/L Normal 98-108 [facility] Comment on above: Performed By: #### L [id number], L100.0100, [id number] #### [facility] [address] [place], [address] CO2 [Moles/Vol] 29.1 mmol/L Normal 21.0-32.0 [facility] Comment on above: Performed By: #### L [id number], L100.0100, [id number] #### [facility] [address] [place], [address] Creatinine [Mass/Vol] 0.76 mg/dL Normal 0.70-1.20 [facility] Comment on above: Performed By: #### L [id number], L100.0100, [id number] #### [facility] [address] [place], [address] GAP 9 Normal 5-15 [facility] Comment on above: Performed By: #### L [id number], L100.0100, [id number] #### [facility] [address] [place], [address] GFR/1.73 sq M.predicted among non-blacks MDRD (S/P/Bld) [Vol rate/Area] 92 mL/min/{1.73_m2} Normal >60 [facility] Comment on above: Result Comment: mL/m in/1.73m2 CKD-EPI Creatinine Equation (2020) Performed By: #### L [id number], L100.0100, [id number] #### [facility] [address] [place], [address] Globulin (S) [Mass/Vol] 3.2 g/dL Normal 2.2-4.2 [facility] Comment on above: Performed By: #### L [id number], L100.0100, [id number] #### [facility] [address] [place], [address] Glucose [Mass/Vol] 101 mg/dL High 70-99 [facility] Comment on above: Performed By: #### L [id number], L100.0100, [id number] #### [facility] [address] [place], [address] Potassium [Moles/Vol] 4.3 mmol/L Normal 3.3-5.1 [facility] Comment on above: Performed By: #### L [id number], L100.0100, [id number] #### [facility] [address] [place], [address] Sodium [Moles/Vol] 141 mmol/L Normal 133-145 [facility] Comment on above: Performed By: #### L [id number], L100.0100, [id number] #### [facility] [address] [place], [address] T PROT 7.5 g/dL Normal 5.9-8.4 [facility] Comment on above: Performed By: #### L [id number], L100.0100, [id number] #### [facility] [address] [place], [address] Urea nitrogen [Mass/Vol] 13 mg/dL Normal 4-19 [facility] Comment on above: Performed By: #### L [id number], L100.0100, [id number] #### [facility] [address] [place], [address] Thyroid Stim Hormone (TSH)on 12-16-2024 TSH 0.978 uIU/mL Normal 0.300-4.200 [facility] Comment on above: Performed By: #### L [id number], L100.0100, [id number] #### [facility] [address] [place], [address] CBC W/Diff, Automatedon 11-21 Absolute Lymph 3.15 X10 3/uL Normal 0.83-4.51 [facility] Comment on above: Performed By: #### L [id number], L100.0100, [id number] #### [facility] [address] [place], [address] Absolute Neut 4.0 X10 3/uL Normal 2.0-7.7 [facility] Comment on above: Performed By: #### L [id number], L100.0100, [id number] #### [facility] [address] [place], [address] Basophils/100 WBC (Bld) 0.7 % Normal 0-1 [facility] Comment on above: Performed By: #### L 501.9520, L100.0100, [id number] #### [facility] [address] [place], [address] Eosinophils/100 WBC (Bld) 4.2 % Normal 0-5 [facility] Comment on above: Performed By: #### L [id number], L100.0100, [id number] #### [facility] [address] [place], [address] Erythrocyte distribution width (RBC) [Ratio] 12.3 % Normal 11.6-14.6 [facility] Comment on above: Performed By: #### L [id number], L100.0100, [id number] #### [facility] [address] [place], [address] Hematocrit (Bld) [Volume fraction] 42.2 % Normal 37-47 [facility] Comment on above: Performed By: #### L [id number], L100.0100, [id number] #### [facility] [address] [place], [address] Hemoglobin (Bld) [Mass/Vol] 14.6 g/dL Normal 12.0-15.0 [facility] Comment on above: Performed By: #### L 501.9520, L100.0100, [id number] #### [facility] [address] [place], [address] IG% 0.200 Normal 0.0-0.9 [facility] Comment on above: Result Comment: IG% - Immature Granulocytes (promyelocytes, myelocytes and metamyelocytes) > 1% indicates that a LEFT SHIFT is Present. Performed By: #### L 501.9520, L100.0100, [id number] #### [facility] [address] [place], [address] Lymphocytes/100 WBC (Bld) 38.1 % Normal 19-41 [facility] Comment on above: Performed By: #### L [id number], L100.0100, [id number] #### [facility] [address] [place], [address] MCH (RBC) [Entitic mass] 31.5 pg Normal 27.0-32.0 [facility] Comment on above: Performed By: #### L [id number], L100.0100, [id number] #### [facility] [address] [place], [address] MCHC (RBC) [Mass/Vol] 34.6 g/dL Normal 32-36 [facility] Comment on above: Performed By: #### L 501.9520, L100.0100, [id number] #### [facility] [address] [place], [address] MCV (RBC) [Entitic vol] 90.9 fL Normal 81-99 [facility] Comment on above: Performed By: #### L [id number], L100.0100, [id number] #### [facility] [address] [place], [address] Monocytes/100 WBC (Bld) 8.8 % Normal 0-10 [facility] Comment on above: Performed By: #### L 501.9520, L100.0100, [id number] #### [facility] [address] [place], [address] Neutrophils/100 WBC (Bld) 48.0 % Normal 47-70 [facility] Comment on above: Performed By: #### L [id number], L100.0100, [id number] #### [facility] [address] [place], [address] Nucleated RBC (Bld) [#/Vol] 0 10*3/uL Normal 0-5 [facility] Comment on above: Performed By: #### L [id number], L100.0100, [id number] #### [facility] [address] [place], [address] Platelet mean volume (Bld) [Entitic vol] 11.0 fL Normal 6.2-12.0 [facility] Comment on above: Performed By: #### L 501.9520, L100.0100, [id number] #### [facility] [address] [place], [address] Platelets (Bld) [#/Vol] 325 10*3/uL Normal 150-450 [facility] Comment on above: Performed By: #### L 501.9520, L100.0100, [id number] #### [facility] [address] [place], [address] RBC (Bld) [#/Vol] 4.64 10*6/uL Normal 4.2-5.4 [facility] Comment on above: Performed By: #### L 501.9520, L100.0100, [id number] #### [facility] [address] [place], [address] RDW SD 41.1 fl Normal 35.1-43.9 [facility] Comment on above: Performed By: #### L 501.9520, L100.0100, [id number] #### [facility] [address] [place], [address] WBC (Bld) [#/Vol] 8.3 10*3/uL Normal 4.4-11.0 [facility] Comment on above: Performed By: #### L 501.9520, L100.0100, [id number] #### [facility] [address] [place], [address] Comprehensive Metabolic Prof torie 12-11-2024 ALB Normal 3.5-5.0 [facility] Comment on above: Result Comment: REDR AW. PREVIOUS SPECIMEN REJECTED DUE TO RENÉE. 12/11/24 1504 Jackie Paulino. Performed By: #### L 501.9520, L100.0100, [id number] #### [facility] [address] [place], [address] ALK PHOS Normal 35-104 [facility] Comment on above: Result Comment: REDR AW. PREVIOUS SPECIMEN REJECTED DUE TO RENÉE. 12/11/24 1504 Jackie Laputan. Performed By: #### L 501.9520, L100.0100, [id number] #### [facility] [address] [place], [address] ALT Normal <=34 [facility] Comment on above: Result Comment: REDR AW. PREVIOUS SPECIMEN REJECTED DUE TO RENÉE. 12/11/24 1504 Jackie Laputan. Performed By: #### L [id number], L100.0100, [id number] #### [facility] [address] [place], [address] AST Normal <=31 [facility] Comment on above: Result Comment: REDR AW. PREVIOUS SPECIMEN REJECTED DUE TO RENÉE. 12/11/24 1504 Jackie Laputan. Performed By: #### L 501.9520, L100.0100, [id number] #### [facility] [address] [place], [address] BUN Normal 4-19 [facility] Comment on above: Result Comment: REDR AW. PREVIOUS SPECIMEN REJECTED DUE TO RENÉE. 12/11/24 1504 Jackie Laputan. Performed By: #### L 501.9520, L100.0100, [id number] #### [facility] [address] [place], [address] BUN/CRE Normal 10-20 [facility] Comment on above: Result Comment: REDR AW. PREVIOUS SPECIMEN REJECTED DUE TO RENÉE. 12/11/24 1504 Jackie Laputan. Performed By: #### L [id number], L100.0100, [id number] #### [facility] [address] [place], [address] Calcium Normal 7.6-11.0 [facility] Comment on above: Result Comment: REDR AW. PREVIOUS SPECIMEN REJECTED DUE TO RENÉE. 12/11/24 1504 Jackie Laputan. Performed By: #### L 501.9520, L100.0100, [id number] #### [facility] [address] [place], [address] CL Normal 98-108 [facility] Comment on above: Result Comment: REDR AW. PREVIOUS SPECIMEN REJECTED DUE TO RENÉE. 12/11/24 1504 Jackie Laputan. Performed By: #### L 501.9520, L100.0100, [id number] #### [facility] [address] [place], [address] CO2 Normal 21.0-32.0 [facility] Comment on above: Result Comment: REDR AW. PREVIOUS SPECIMEN REJECTED DUE TO RENÉE. 12/11/24 1504 Jackie Laputan. Performed By: #### L 501.9520, L100.0100, [id number] #### [facility] [address] [place], [address] CREAT,SERUM Normal 0.70-1.20 [facility] Comment on above: Result Comment: REDR AW. PREVIOUS SPECIMEN REJECTED DUE TO RENEÉ. 12/11/24 1504 Jackie Laputan. Performed By: #### L 501.9520, L100.0100, [id number] #### [facility] [address] [place], [address] eGFR Normal >60 [facility] Comment on above: Result Comment: REDR AW. PREVIOUS SPECIMEN REJECTED DUE TO RENÉE. 12/11/24 1504 Jackie Laputan. Performed By: #### L 501.9520, L100.0100, [id number] #### [facility] [address] [place], [address] GAP Normal 5-15 [facility] Comment on above: Result Comment: REDR AW. PREVIOUS SPECIMEN REJECTED DUE TO RENÉE. 12/11/24 1504 Jackie Laputan. Performed By: #### L 501.9520, L100.0100, [id number] #### [facility] [address] [place], [address] GLU Normal 70-99 [facility] Comment on above: Result Comment: REDR AW. PREVIOUS SPECIMEN REJECTED DUE TO RENÉE. 12/11/24 1504 Jackie Laputan. Performed By: #### L 501.9520, L100.0100, [id number] #### [facility] [address] [place], [address] Potassium Normal 3.3-5.1 [facility] Comment on above: Result Comment: REDR AW. PREVIOUS SPECIMEN REJECTED DUE TO RENÉE. 12/11/24 1504 Jackie Laputan. Performed By: #### L 501.9520, L100.0100, [id number] #### [facility] [address] [place], [address] T BILI Normal 0.00-1.30 [facility] Comment on above: Result Comment: REDR AW. PREVIOUS SPECIMEN REJECTED DUE TO RENÉE. 12/11/24 1504 Jackie Laputan. Performed By: #### L 501.9520, L100.0100, L500.4050 #### [facility] [address] [place], [address] T PROT Normal 5.9-8.4 [facility] Comment on above: Result Comment: REDR AW. PREVIOUS SPECIMEN REJECTED DUE TO RENÉE. 12/11/24 1504 Jackie Laputan. Performed By: #### L 501.9520, L100.0100, [id number] #### [facility] [address] [place], [address] Comprehensive Metabolic Profil Normal 133-145 [facility] Comment on above: Result Comment: REDR AW. PREVIOUS SPECIMEN REJECTED DUE TO RENÉE. 12/11/24 1504 Jackie Laputan. Performed By: #### L 501.9520, L100.0100, [id number] #### [facility] [address] [place], [address] Thyroid Stim Hormone (TSH)on 12-11-2024 TSH 0.707 uIU/mL Normal 0.300-4.200 [facility] Comment on above: Order Comment: RICCARDO Trammell. PREVIOUS SPECIMEN REJECTED DUE TO RENÉE. 12/11/24 1504 Jackie Paulino. Result Comment: KEMAL REYES. PREVIOUS SPECIMEN REJECTED DUE TO RENÉE. 12/11/24 1504 Jackie Paulino. Performed By: #### L [id number], L100.0100, [id number] #### [facility] [address] [place], [place], [address] CNOVon 11-18-2024 CNOV Office Visit (OBGYWM ) HUAN ALLISON ([id number]) 1970 F Date Time Provider Department 11/18/24 10:50 AM MAYLIN SERRANO OBGYWAlbert During your visit today, we recorded the following information about you: Blood pressure Weight 124/72 75.3 kg Maylin Serrano MD 11/18/2024 3:27 PM Signed Huan Allison is a 54 year old female who presents to discuss menopausal symptoms. HPI: Benign EMB. Scheduled to see GI in December for bloating and nausea. Hot flashes and joint pains are bothersome for her. Night sweats wake her up 3-4 times at night. Hot flashes several times a day. Interfering with sleep. Never feels rested which makes work day difficult. No known medical problems. Established with a PCP. OB History Gravida2 Para0 Term0 Preterm0 AB1 Living2 SAB1 IAB0 Ectopic0 Multiple1 Live Births0 Wool Cleaner History LMP: Perimenopausal Age at Menarche: 10 Age at First : Age at Menopause: Wool Cleaner History Comments: Sexual Activity: Yes; Male Contraception: None History reviewed. No pertinent past medical history. PAST SURGICAL HISTORY Procedure Laterality Date BREAST LUMPECTOMY HX Left benign REMOVAL OF OVARIAN CYST(S) FAMILY HISTORY Problem Relation Age of Onset Heart Father Breast Cancer Maternal Grandmother 80 - 89 Heart disease Maternal Grandmother Breast Cancer Maternal Aunt 70's SOCIAL HISTORY[1] Current Outpatient Medications Medication Sig estradiol (CLIMARA) 0.025 mg/24 hr patch Apply 1 patch as directed one time a week. progesterone micronized (PROMETRIUM) 100 mg capsule Take 1 capsule by mouth daily at bedtime. potassium chloride (K-TAB) 10 mEq tablet Take 10 mEq by mouth once daily. No current facility-administered medications for this visit. Allergies As of Date: 11/18/2024 (No Known Allergies) Fully Assessed 11/18/2024 REVIEW OF SYSTEMS Expanded ROS: N/A Allergies and current medication updated:Yes SENSITIVE EXAM: Sensitive exam not performed. EXAM: BP 124/72 Wt 166 lb (75.3kg) GENERAL: pleasant, female in no apparent distress CHEST: Normal inspiratory effort NEURO: exam grossly non-focal EXTREMITIES: normal ASSESSMENT AND PLAN: Assessment AND Plan Cyst of ovary, unspecified laterality Orders: PELVIC US WHI; Future Encounter for screening mammogram for malignant neoplasm of breast Orders: IESHA SCREENING W MALLIKA; Future Hot flashes Orders: estradiol (CLIMARA) 0.025 mg/24 hr patch; Apply 1 patch as directed one time a week. progesterone micronized (PROMETRIUM) 100 mg capsule; Take 1 capsule by mouth daily at bedtime. Hot flashes due to menopause Night sweats Arthralgia, unspecified joint Patient interested in HRT. Discussed r/b/a HRT and she desires to start. Information given for her to review. Orders placed for estrogen patch and oral prometrium. Discussed reasons to call. To send message 1 month with response to HRT. Orders placed for screening mammogram and follow up pelvic US 12 months from last given ovarian cyst. Maylin Serrano DO Medical Decision Making: Problems: Moderate: New problem with uncertain prognosis Risk: Moderate: Drug management Medical Decision Making Level: 4 - Moderate [1] Social History Tobacco Use Smoking status: Never Smokeless tobacco: Never Vaping Use Vaping status: Never Used Substance Use Topics Alcohol use: Never Drug use: Never Maylin Serrano MD 11/18/2024 11:28 AM Signed Hormone Therapy* (HT): Understanding Benefits and Risks (*Sometimes also called hormone replacement therapy, HRT) What are estrogen and progesterone? Estrogen and progesterone are hormones that are produced by a woman's ovaries. Why does the body need estrogen? Estrogen thickens the lining of the uterus, preparing it for the possible implantation of a fertilized egg. Estrogen also influences how the body uses calcium, an important mineral in the building of bones. In addition, estrogen helps maintain healthy levels of cholesterol in the blood. Estrogen is necessary in keeping the vagina healthy. As menopause nears, the ovaries reduce most of their production of these hormones. Lowered or fluctuating estrogen levels may cause menopause symptoms such as hot flashes, and medical conditions such as osteoporosis. What is hormone therapy (HT)? Hormone therapy (HT) is a treatment that is used to supplement the body with either estrogen alone or estrogen and progesterone in combination. When the ovaries no longer produce adequate amounts of these hormones (as in menopause), HT can be given to supplement the body with adequate levels of estrogen and progesterone. HT helps to replenish the estrogen, relieving some of the symptoms of menopause and helping to prevent osteoporosis. Why is progesterone taken? Progesterone is used along with estrogen in women who still have their uterus. In these w (more content not included)... Normal [facility] CNOVon 11-04-2024 CNOV Office Visit (OBGYWM ) HUAN ALLISON ([id number]) 1970 F Date Time Provider Department 11/04/24 2:00 PM MAYLIN SERRANO OBGYWM During your visit today, we recorded the following information about you: Blood pressure Weight 120/78 75.8 kg Maylin Serrano MD 11/04/2024 3:01 PM Signed Performance Test Consultant offered: Patient declines. Huan is a 54 year old Female who presents today for an endometrial biopsy for thickening of endometrial lining. test: n/a UNIVERSAL PROTOCOL / SAFETY CHECKLIST Procedure to be Performed: Endometrial Biopsy Sign In: A Moment of CARE was completed. Appropriate PPE (Personal Protective Equipment) worn by all providers involved with the procedure. Special equipment not required. Patient/Surrogate Stated/Verified: Patient name, Date of , Relevant allergies, and The intended procedure Time Out: Relevant labs, photos, and/or imaging studies have been reviewed. Intended patient and procedure match the source document(s) (e.g. consent, HANDP, associated studies [imaging, pathology]) match the intended patient and procedure. Consent obtained and matches the intended procedure. Yes. Correct side/site is not applicable. Medications required for this procedure are verified. Fire risk assessed and is not applicable. Implants: are not applicable. Sign Out: Specimens are all correctly labeled and sent. All instruments, equipment, possible retained foreign bodies are accounted for. Yes. The post-procedure plan of care has been communicated to the patient or surrogate. PROCEDURE: EXTERNAL GENITALIA: Normal in appearance without lesions VAGINA: Normal in appearance without lesions BIOPSY: Speculum placed into the vagina with excellent visualization of the cervix. Cervix cleaned with betadine. Anterior lip of cervix grasped with single toothed tenaculum. Uterus sounded to 9 cm. Pipelle inserted into the uterus without difficulty and endometrial biopsy obtained. Procedure Summary: Patient tolerated procedure well. ASSESSMENT: thickening of endometrial lining PLAN: Specimens labeled and sent to Pathology. Will notify patient of results in 1-2 weeks. Post-procedure instructions reviewed and written material given to the patient. DO Bebo Mujica Amanda CO 11/04/2024 2:35 PM Signed Post-Procedure Instructions Endometrial Biopsy Instructions: You may experience irregular bleeding / spotting for up to a week after this procedure. Use a panty liner or pad instead of tampons for about one week. Avoid vaginal intercourse or putting anything in your vagina for about one week. Pain Control / Medications: Take 600 mg of ibuprofen (Advil, Motrin, etc.) or 1000 mg of acetaminophen (Tylenol) every 6 hours as needed for pain Do not take more than 2400 mg of ibuprofen or 4000 mg of acetaminophen in any 24 hour period You can also put a heating pad on your abdomen to help with pain. Call your provider's office if you: Have a fever greater than 100.4? F (38.0? C) Have very heavy bleeding (soaking 1 large pad an hour for 2 hours in a row) Prolonged vaginal bleeding for > 7 days following your procedure Have severe cramps that do not go away after you take ibuprofen or acetaminophen Have foul smelling vaginal discharge Follow-Up: Your specific follow up plan will depend on the results of the biopsy. Most biopsy results are available in 3 to 5 business days via [employer], unless a different method of communication was discussed today with your provider. Referring Provider: MAYLIN SERRANO [[id number]] Allergies As of Date: 11/04/2024 (No Known Allergies) Date Reviewed: 11/04/2024 Reviewed by: Rima Lagunas MA - Fully Assessed Reason for Visit: Endometrial Biopsy [7501] Primary Visit Diagnosis:Endometrial thickening on ultrasound [R93.89] Order(s):SURGICAL PATHOLOGY [WKL5873] Order #: [id number] Prescriptions as of 11/04/2024 - potassium chloride (K-TAB) 10 mEq tablet Take 10 mEq by mouth once daily. Problem List As Of Date: 11/04/2024 (None) Other instructions from your clinician: Post-Procedure Instructions Endometrial Biopsy Instructions: You may experience irregular bleeding / spotting for up to a week after this procedure. Use a panty liner or pad instead of tampons for about one week. Avoid vaginal intercourse or putting anything in your vagina for about one week. Pain Control / Medications: Take 600 mg of ibuprofen (Advil, Motrin, etc.) or 1000 mg of acetaminophen (Tylenol) every 6 hours as needed for pain Do not take more than 2400 mg of ibuprofen or 4000 mg of acetaminophen in any 24 hour period You can also put a heating pad on your abdomen to help with pain. Call your provider's office if you: Have a fever greater than 100.4? F (38.0? C) Have very heavy bleeding (soaking 1 large pad an hour for 2 hours in a row) (more content not included)... Normal [facility] Pathology biopsy report Ant (Tiss)on 11-04-2024 AP DISCLAIMER Normal [facility] Comment on above: Order Comment: Speci men Type: TISSUE SPECIMEN Ordering Facility: [facility] Address: [address] [place] [address] Result Comment: Ford gan Developed Test (LDT) Disclaimer: Performance characteristics of immunohistochemical, immunofluorescent, and chromogenic in-situ hybridization tests have been determined by the performing laboratory within the [facility] Department of Pathology and Laboratory Medicine ([facility], [facility], [facility], [facility], [facility], [facility], or [facility]) in a manner consistent with CLIA requirements. One or more of these tests may not have been cleared or approved by the FDA. The [facility] Department of Pathology and Laboratory Medicine is regulated under CLIA as qualified to perform high-complexity testing. These tests are used for clinical purposes. These should not be regarded as investigational or for research. Positive and negative controls stain appropriately. Performed By: #### 6 6121-5 #### [facility] CLIA [id number] [address] [place] [address] [place] CASE REPORT Normal [facility] Comment on above: Order Comment: Speci men Type: TISSUE SPECIMEN Ordering Facility: [facility] Address: [address] [place] [address] Result Comment: Surg [facility] Pathology Report Case: [id number] Authorizing Provider: Maylin Serrano MD Collected: 11/04/2024 03:04 PM Ordering Location: OB/Gynecology Received: 11/04/2024 03:54 PM Pathologist: Feroz Khan MD Specimen: Endometrium, Biopsy Performed By: #### 6 6121-5 #### [facility] CLIA [id number] [address] [place] [address] [place] CLINICAL HISTORY Thickening of the endometrial lining Normal [facility] Comment on above: Order Comment: Speci men Type: TISSUE SPECIMEN Ordering Facility: [facility] Address: [address] [place] [address] Performed By: #### 6 6121-5 #### [facility] CLIA [id number] [address] [place] [address] [place] FINAL DIAGNOSIS Normal [facility] Comment on above: Order Comment: Speci men Type: TISSUE SPECIMEN Ordering Facility: [facility] Address: [address] [place] [address] Result Comment: A. E ndometrium, biopsy: - Atrophic endometrium at 1238 EDT Performed By: #### 6 6121-5 #### [facility] CLIA [id number] [address] [place] [address] OF [facility] FINAL PERFORMING LAB Normal [facility] Comment on above: Order Comment: Speci men Type: TISSUE SPECIMEN Ordering Facility: [facility] Address: [address] [place] [address] Result Comment: Diag nostic interpretation performed at: [facility], [address] [place] [address] CLIA# [id number] File Drawer Finisher: Jj Baig MD Performed By: #### 6 6121-5 #### [facility] CLIA [id number] [address] [place] [address] STATES [facility] GROSS DESCRIPTION Normal [facility] Comment on above: Order Comment: Speci men Type: TISSUE SPECIMEN Ordering Facility: [facility] Address: [address] [place] [address] Result Comment: A. E ndometrium, Biopsy Received in formalin are multiple roche, soft feathery segments of tissue aggregating to 0.4 x 0.3 x 0.1 cm. Totally submitted in one cassette. FFS November 05, 2024 12:58 AM Gross examination performed at [facility], [address] [place] [address] Performed By: #### 6 6121-5 #### [facility] CLIA [id number] [address] [place] [address] OF [place] CNOVon 10-14-2024 CNOV Office Visit (OBGYWM ) HUAN ALLISON ([id number]) 1970 F Date Time Provider Department 10/14/24 2:40 PM MAYLIN SERRANO OBGYWAlbert During your visit today, we recorded the following information about you: Blood pressure Weight Height 138/88 75.7 kg 1.6 m Maylin Serrano MD 10/14/2024 5:54 PM Signed Huan Allison is a 54 year old female who presents as a new patient for a second opinion. HPI: She states she was having abdominal fullness and bloating that prompted an ultrasound to be ordered. An outside office recommended an EMB due to endometrial thickening, and a referral to GI for bloating. She would like to know if she needs an endometrial biopsy. She feels her abdomen is bloating and full. She started taking a green super food and BM's have become more regular, which has improved the bloating somewhat. Feels full at the end of the day, which is uncomfortable for her. Feels she has increased flatus with water intake. She had reduced her water intake due to bloating. She is going to the gym 3 days a week. Has been having hot flashes, night sweats, pain with intercourse, and brain fog. Completed Cologuard through PCP. Has never had colonoscopy. Had IUD inserted in 01/2019 and removed 01/2024. Has had no bleeding since the IUD removal. OB History Gravida2 Para0 Term0 Preterm0 AB1 Living2 SAB1 IAB0 Ectopic0 Multiple1 Live Births0 Wool Cleaner History LMP: Perimenopausal Age at Menarche: 10 Age at First : Age at Menopause: Wool Cleaner History Comments: Sexual Activity: Yes; Male Contraception: None History reviewed. No pertinent past medical history. PAST SURGICAL HISTORY Procedure Laterality Date BREAST LUMPECTOMY HX Left benign REMOVAL OF OVARIAN CYST(S) No family history on file. SOCIAL HISTORY[1] Current Outpatient Medications Medication Sig potassium chloride (K-TAB) 10 mEq tablet Take 10 mEq by mouth once daily. No current facility-administered medications for this visit. Allergies As of Date: 10/14/2024 (No Known Allergies) Fully Assessed 10/14/2024 REVIEW OF SYSTEMS Expanded ROS: N/A Allergies and current medication updated:Yes SENSITIVE EXAM: Sensitive exam not performed. EXAM: BP 138/88 Ht 5' 3 (1.60m) Wt 166 lb 12.8 oz (75.7kg) BMI 29.55 kg/(m2). GENERAL: pleasant, female in no apparent distress HEENT: Normocephalic and atraumatic NECK: full range of motion CHEST: Normal inspiratory effort NEURO: exam grossly non-focal EXTREMITIES: normal ASSESSMENT AND PLAN: Assessment AND Plan Endometrial thickening on ultrasound Orders: ENDOMETRIAL BIOPSY Abdominal bloating Orders: CONSULT TO GASTROENTEROLOGY; Future Abdominal fullness Orders: CONSULT TO GASTROENTEROLOGY; Future Cyst of ovary, unspecified laterality Hot flashes Night sweats Reviewed pelvic ultrasound findings in detail with patient and questions answered. 2 cm ovarian cyst that was previously 1.5 cm one year prior. Discussed most likely benign but recommend yearly pelvic US follow up. Seems unlikely to be causing bloating given size. Previous office recommended EMB and GI referral, and she is here for a second opinion prior to proceeding with this. Given thickened endometrium discussed cannot rule out pathology. Discussed r/b/a EMB and patient would like to proceed. Order placed. Briefly discussed HRT and information given on non hormonal and hormonal treatment options for menopause for her to review. Would want EMB completed prior to starting any HRT. Agree with GI referral given symptoms. RTO for EMB. Maylin Serrano DO Medical Decision Making: Problems: Moderate: New problem with uncertain prognosis Data: Unique test(s) ordered: 2 Independent interpretation of test from other physician/QHCP Risk: Minimal: Minimal risk from testing/treatment Medical Decision Making Level: 4 - Moderate [1] Social History Tobacco Use Smoking status: Never Smokeless tobacco: Never Vaping Use Vaping status: Never Used Substance Use Topics Alcohol use: Never Drug use: Never Maylin Serrano MD 10/14/2024 3:38 PM Signed Non-Hormonal Ways to [place] with Hot Flashes and Menopause Hormone therapy is the most effective therapy for hot flashes. It is also the only FDA approved method to treat hot flashes. However, other non-hormonal options are available for women who are suffering from symptoms, but are not yet ready to consider hormone therapy. Some women are not appropriate candidates for hormone therapy, such as those have been recently treated for breast cancer, ovarian cancer, or endometrial/uterine cancer. It is important to remember that when used appropriately, hormone therapy can be a safe and effective option for many women. Here we will review non-hormonal treatment options for women. Knowing the triggers of hot flashes Hot flashes may be precipitated (more content not included)... Normal [facility] Breast imaging reportOrdered By: Fela Almeida on 07-22-2024 Study report [facility] Imaging Services [address] [place] [address] SCRN MAMM (CAD)W/MALLIKA BILAT MR#: [id number] Acct: [id number] Name: HUAN ALLISON Rep #: [id number] : 1970 F 54 From: Robert Almeida DO PCP: Dr. Thierry Wan MD Status: PEPE MARQUEZ Study:SCRN MAMM (CAD)W/MALLIKA BILAT Date of Exa m: 07/22/24 Exam# [id number] Ordering Dr: Adriana Coffman EXAM: SCRN MAMM (CAD)W/MALLIKA BILAT DATE: 07/22/2024 CLINICAL HISTORY: F, Age 54 y/o , SCREENING MAMMOGRAM FOR BREAST CANCER BREAST CANCER RISK ASSESSMENT: Has not been calculated. TECHNIQUE: Bilateral screening digital breast tomosynthesis with 2D and 3D images. Computeraided detection. COMPARISON: Prior exam(s) dated 07/12/2023 and 04/04/2022. FINDINGS: TISSUE DENSITY: The breast tissue is composed of scattered area of fibroglandular density. Bilateral Breast Mammographic Findings: They are no suspicious masses, suspicious cluster of microcalcifications, architectural distortion or secondary signs of malignancy identified in either breast. Partially obscured, stable, isodense masses are seen in both breasts. Benign-appearing round microcalcifications are seen in the right breast. BI/SCRN MAMM (CAD)W/MALLIKA BILAT IMPRESSION: OVERALL FINAL ASSESSMENT: BIRADS 2 BENIGN FINDING RECOMMENDATION: Routine annual follow-up in 1 Year A letter with findings and recommendations will be mailed to the patient. Reading Location: [id number] CC: POWDER COAT PAINTERRachel Coffman; Dr. 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: Signed [facility] SCRN MAMM (CAD)W/MALLIKA BILATo n 07-22-2024 SCRN MAMM (CAD)W/MALLIKA BILAT [facility] Imaging Services [address] [place] [address] SCRN MAMM (CAD)W/MALLIKA BILAT MR#: [id number] Acct: [id number] Name: HUAN ALLISON Rep #: [id number] : 1970 F 54 From: Fela Tompkins PCP: Dr. Thierry Wan MD Status: REG CLI Study: SCRN MAMM (CAD)W/MALLIKA BILAT Date of Exam: 04/16 Exam# [id number] Ordering Dr: Adriana Coffman POWDER COAT PAINTER-Lesli EXAM: SCRN MAMM (CAD)W/MALLIKA BILAT DATE: 07/22/2024 CLINICAL HISTORY: F, Age 54 y/o , SCREENING MAMMOGRAM FOR BREAST CANCER BREAST CANCER RISK ASSESSMENT: Has not been calculated. TECHNIQUE: Bilateral screening digital breast tomosynthesis with 2D and 3D images. Computer aided detection. COMPARISON: Prior exam(s) dated 07/12/2023 and 04/04/2022. FINDINGS: TISSUE DENSITY: The breast tissue is composed of scattered area of fibroglandular density. Bilateral Breast Mammographic Findings: They are no suspicious masses, suspicious cluster of microcalcifications, architectural distortion or secondary signs of malignancy identified in either breast. Partially obscured, stable, isodense masses are seen in both breasts. Benign-appearing round microcalcifications are seen in the right breast. BI/SCRN MAMM (CAD)W/MALLIKA BILAT IMPRESSION: OVERALL FINAL ASSESSMENT: BIRADS 2 BENIGN FINDING RECOMMENDATION: Routine annual follow-up in 1 Year A letter with findings and recommendations will be mailed to the patient. Reading Location: [id number] CC: KHUSHBOO Coffman; Dr. Thierry Wan MD Structural Ironworker: Signed Normal [facility] Pelvic w/ Transvaginalon Pelvic w/ Transvaginal [facility] Imaging Services [address] [place] [address] Pelvic w/ Transvaginal MR#: [id number] Acct: [id number] Name: HUAN ALLISON Rep #: [id number] : 1970 F 54 From: Morgan cannon MD PCP: Dr. Thierry Wan MD Status: REG CLI Study: Pelvic w/ Transvaginal Date of Exam: 07/13/24 Exam# [id number] Ordering Dr: Adriana Coffman PROCEDURE: PELVIC W/ TRANSVAGINAL 07/13/2024 REASON FOR EXAM: PELVIC PAIN TECHNIQUE: Transabdominal pelvic ultrasound COMPARISON: None FINDINGS: Measurements: Uterus: 11.6 cm x 4.6 cm x 4 cm with a volume of 113 mL Endometrial Thickness: 11.4 mm Right Ovary: 3.2 cm x 2.2 cm x 2.3 cm with a volume of 8.62 mL. Left Ovary: 2.9 cm x 1.5 cm x 1.8 cm with a volume of 4.12 mL. Uterus: There are 2 small calcified fibroids. Endometrium: Endometrium is thickened for the postmenopausal state. Nabothian cyst. Right ovary: 2 cm x 2 cm x 1.9 cm right ovarian cyst. Left ovary: Normal size and echotexture. Other: No large pelvic mass identified. US/Pelvic w/ Transvaginal IMPRESSION: Fibroid uterus. Endometrial thickening. 2 cm x 2 cm x 1.9 cm right ovarian cyst. 2 small uterine fibroids. Reading Location: [place] [address] CC: KHUSHBOO Coffman; Dr. Thierry Wan MD Structural Ironworker: Signed Normal [facility] Abdomen Completeon Abdomen Complete [facility] Imaging Services [address] [place] [address] Abdomen Complete MR#: [id number] Acct: [id number] Name: HUAN ALLISON Rep #: [id number] : 1970 F 54 From: Matthias Rosales MD PCP: Dr. Thierry Wan MD Status: REG CLI Study: Abdomen Complete Date of Exam: 07/12/24 Exam# [id number] Ordering Dr: Adriana Coffman POWDER COAT PAINTERYueC EXAM: US Abdomen Complete CLINICAL INDICATION: ABDOMINAL PAIN TECHNIQUE: Real-time ultrasound of the abdomen with image documentation. COMPARISON: No relevant prior studies available. FINDINGS: LIVER: Liver measures up to 14.7 cm. Fatty infiltration of the liver. No intrahepatic bile duct dilation. GALLBLADDER: Unremarkable. No gallstones. COMMON BILE DUCT: Unremarkable as visualized. No stones. No dilation. Common bile duct measures 0.36 cm in diameter. PANCREAS: Unremarkable as visualized. KIDNEYS: Echogenic kidney could be fatty infiltration. No stones. No hydronephrosis. The right kidney measures 11.7 x 5.6 x 4.7 cm. The left kidney measures 11.1 x 4.7 x 5.6 cm. SPLEEN: Spleen measures up to 10.6 cm. AORTA: Unremarkable. No aneurysm. INFERIOR VENA CAVA: Unremarkable. US/Abdomen Complete IMPRESSION: Fatty infiltration of the liver. Reading Location: [facility] CC: KHUSHBOO Coffman; Dr. Thierry Wan MD Structural Ironworker: Signed Normal [facility] Absolute lymphocyte countOrd ered By: Adriana Coffman on 07-03-2024 Lymphocytes Auto (Unsp spec) [#/Vol] 2.45 10*3/uL 0.83-4.51 [facility] Absolute neutrophil countOrd ered By: Adriana Coffman on 07-03-2024 Neutrophils (Bld) [#/Vol] 4.3 10*3/uL 2.0-7.7 [facility] Amylaseon 07-03-2024 HUI 57 U/L Normal 28-100 [facility] Comment on above: Performed By: #### L 501.4700, L501.2450, L501.2400, L100.0100, L500.4050 #### [facility] [address] [place], [address] Anion gap in Serum or Plasma Ordered By: Adriana Coffman on 07-03-2024 Anion gap [Moles/Vol] 9 mmol/L 5- [facility] Automated lymphocyte count a s percentage of total leukocytesOrdered By: Adriana Coffman on 07-03-2024 Lymphocytes/100 WBC Auto (Unsp spec) 30.8 % - [facility] BUN/creatinine ratioOrdered By: Adriana Coffman on 07-03-2024 Urea nitrogen/Creatinine [Mass ratio] 16.7 mg/mg - [facility] Basophil percentageOrdered B y: Adriana Coffman on 07-03-2024 Basophils/100 WBC (Bld) 0.9 % 0-1 [facility] Bilirubin directOrdered By: Adriana Coffman on 07-03-2024 Bilirubin.direct [Mass/Vol] 0.12 mg/dL 0.00-0.30 [facility] Bilirubin, Directon 07-04-19 25 Bilirubin.direct [Mass/Vol] 0.12 mg/dL Normal 0.00-0.30 [facility] Comment on above: Performed By: #### L 501.4700, L501.2450, L501.2400, L100.0100, L500.4050 #### [facility] [address] [place], [place], [id number] (937) Bilirubin, totalOrdered By: Adriana Coffman on 07-03-2024 Bilirubin [Mass/Vol] 0.30 mg/dL 0.00-1.30 [facility] CBC W/Diff, Automatedon 06-20 Absolute Lymph 2.45 X10 3/uL Normal 0.83-4.51 [facility] Comment on above: Performed By: #### L 501.4700, L501.2450, L501.2400, L100.0100, L500.4050 #### [facility] [address] [place], [address] Absolute Neut 4.3 X10 3/uL Normal 2.0-7.7 [facility] Comment on above: Performed By: #### L 501.4700, L501.2450, L501.2400, L100.0100, L500.4050 #### [facility] [address] [place], [address] Basophils/100 WBC (Bld) 0.9 % Normal 0-1 [facility] Comment on above: Performed By: #### L 501.4700, L501.2450, L501.2400, L100.0100, L500.4050 #### [facility] [address] [place], [address] Eosinophils/100 WBC (Bld) 3.4 % Normal 0-5 [facility] Comment on above: Performed By: #### L 501.4700, L501.2450, L501.2400, L100.0100, L500.4050 #### [facility] [address] [place], [address] Erythrocyte distribution width (RBC) [Ratio] 13.3 % Normal 11.6-14.6 [facility] Comment on above: Performed By: #### L 501.4700, L501.2450, L501.2400, L100.0100, L500.4050 #### [facility] [address] [place], [address] Hematocrit (Bld) [Volume fraction] 41.8 % Normal 37-47 [facility] Comment on above: Performed By: #### L 501.4700, L501.2450, L501.2400, L100.0100, L500.4050 #### [facility] [address] [place], [address] Hemoglobin (Bld) [Mass/Vol] 13.8 g/dL Normal 12.0-15.0 [facility] Comment on above: Performed By: #### L 501.4700, L501.2450, L501.2400, L100.0100, L500.4050 #### [facility] [address] [place], [address] IG% 0.400 Normal 0.0-0.9 [facility] Comment on above: Result Comment: IG% - Immature Granulocytes (promyelocytes, myelocytes and metamyelocytes) > 1% indicates that a LEFT SHIFT is Present. Performed By: #### L 501.4700, L501.2450, L501.2400, L100.0100, L500.4050 #### [facility] [address] [place], [address] Lymphocytes/100 WBC (Bld) 30.8 % Normal 19-41 [facility] Comment on above: Performed By: #### L 501.4700, L501.2450, L501.2400, L100.0100, L500.4050 #### [facility] [address] [place], [address] MCH (RBC) [Entitic mass] 30.7 pg Normal 27.0-32.0 [facility] Comment on above: Performed By: #### L 501.4700, L501.2450, L501.2400, L100.0100, L500.4050 #### [facility] [address] [place], [address] MCHC (RBC) [Mass/Vol] 33.0 g/dL Normal 32-36 [facility] Comment on above: Performed By: #### L 501.4700, L501.2450, L501.2400, L100.0100, L500.4050 #### [facility] [address] [place], [address] MCV (RBC) [Entitic vol] 93.1 fL Normal 81-99 [facility] Comment on above: Performed By: #### L 501.4700, L501.2450, L501.2400, L100.0100, L500.4050 #### [facility] [address] [place], [address] Monocytes/100 WBC (Bld) 10.9 % High 0-10 [facility] Comment on above: Performed By: #### L 501.4700, L501.2450, L501.2400, L100.0100, L500.4050 #### [facility] [address] [place], [address] Neutrophils/100 WBC (Bld) 53.6 % Normal 47-70 [facility] Comment on above: Performed By: #### L 501.4700, L501.2450, L501.2400, L100.0100, L500.4050 #### [facility] [address] [place], [address] Nucleated RBC (Bld) [#/Vol] 0 10*3/uL Normal 0-5 [facility] Comment on above: Performed By: #### L 501.4700, L501.2450, L501.2400, L100.0100, L500.4050 #### [facility] [address] [place], [address] Platelet mean volume (Bld) [Entitic vol] 10.7 fL Normal 6.2-12.0 [facility] Comment on above: Performed By: #### L 501.4700, L501.2450, L501.2400, L100.0100, L500.4050 #### [facility] [address] [place], [address] Platelets (Bld) [#/Vol] 319 10*3/uL Normal 150-450 [facility] Comment on above: Performed By: #### L 501.4700, L501.2450, L501.2400, L100.0100, L500.4050 #### [facility] [address] [place], [address] RBC (Bld) [#/Vol] 4.49 10*6/uL Normal 4.2-5.4 [facility] Comment on above: Performed By: #### L 501.4700, L501.2450, L501.2400, L100.0100, L500.4050 #### [facility] [address] [place], [address] RDW SD 45.4 fl High 35.1-43.9 [facility] Comment on above: Performed By: #### L 501.4700, L501.2450, L501.2400, L100.0100, L500.4050 #### [facility] [address] [place], [address] WBC (Bld) [#/Vol] 8.0 10*3/uL Normal 4.4-11.0 [facility] Comment on above: Performed By: #### L 501.4700, L501.2450, L501.2400, L100.0100, L500.4050 #### [facility] [address] [place], [address] Carbon dioxide, total [Moles /volume] in Central venous bloodOrdered By: Adriana Coffman on 07-03-2024 CO2 [Moles/Vol] 26.7 mmol/L 21.0-32.0 [facility] Chloride assayOrdered By: Marion Coffman on 07-03-2024 Chloride [Moles/Vol] 100 mmol/L 98-108 [facility] Comprehensive Metabolic Prof ilon 07-03-2024 Albumin [Mass/Vol] 4.1 g/dL Normal 3.5-5.0 [facility] Comment on above: Performed By: #### L 501.4700, L501.2450, L501.2400, L100.0100, L500.4050 #### [facility] [address] [place], [address] Albumin/Globulin [Mass ratio] 1.3 {ratio} Normal 0.9-2.4 [facility] Comment on above: Performed By: #### L 501.4700, L501.2450, L501.2400, L100.0100, L500.4050 #### [facility] [address] [place], [address] ALK PHOS 114 U/L High 35-104 [facility] Comment on above: Performed By: #### L 501.4700, L501.2450, L501.2400, L100.0100, L500.4050 #### [facility] [address] [place], [address] ALT [Catalytic activity/Vol] 26 U/L Normal <=34 [facility] Comment on above: Performed By: #### L 501.4700, L501.2450, L501.2400, L100.0100, L500.4050 #### [facility] [address] [place], [address] AST [Catalytic activity/Vol] 26 U/L Normal <=31 [facility] Comment on above: Performed By: #### L 501.4700, L501.2450, L501.2400, L100.0100, L500.4050 #### [facility] [address] [place], [address] Bilirubin [Mass/Vol] 0.30 mg/dL Normal 0.00-1.30 [facility] Comment on above: Performed By: #### L 501.4700, L501.2450, L501.2400, L100.0100, L500.4050 #### [facility] [address] [place], [address] BUN/CRE 16.7 RATIO Normal 10-20 [facility] Comment on above: Performed By: #### L 501.4700, L501.2450, L501.2400, L100.0100, L500.4050 #### [facility] [address] [place], [address] Calcium [Mass/Vol] 9.2 mg/dL Normal 7.6-11.0 [facility] Comment on above: Performed By: #### L 501.4700, L501.2450, L501.2400, L100.0100, L500.4050 #### [facility] [address] [place], [address] Chloride [Moles/Vol] 100 mmol/L Normal 98-108 [facility] Comment on above: Performed By: #### L 501.4700, L501.2450, L501.2400, L100.0100, L500.4050 #### [facility] [address] [place], [address] CO2 [Moles/Vol] 26.7 mmol/L Normal 21.0-32.0 [facility] Comment on above: Performed By: #### L 501.4700, L501.2450, L501.2400, L100.0100, L500.4050 #### [facility] [address] [place], [address] Creatinine [Mass/Vol] 0.69 mg/dL Low 0.70-1.20 [facility] Comment on above: Performed By: #### L 501.4700, L501.2450, L501.2400, L100.0100, L500.4050 #### [facility] [address] [place], [address] GAP 9 Normal 5-15 [facility] Comment on above: Performed By: #### L 501.4700, L501.2450, L501.2400, L100.0100, L500.4050 #### [facility] [address] [place], [address] GFR/1.73 sq M.predicted among non-blacks MDRD (S/P/Bld) [Vol rate/Area] 102 mL/min/{1.73_m2} Normal >60 [facility] Comment on above: Result Comment: mL/m in/1.73m2 CKD-EPI Creatinine Equation (2020) Performed By: #### L 501.4700, L501.2450, L501.2400, L100.0100, L500.4050 #### [facility] [address] [place], [address] Globulin (S) [Mass/Vol] 3.1 g/dL Normal 2.2-4.2 [facility] Comment on above: Performed By: #### L 501.4700, L501.2450, L501.2400, L100.0100, L500.4050 #### [facility] [address] [place], [address] Glucose [Mass/Vol] 86 mg/dL Normal 70-99 [facility] Comment on above: Performed By: #### L 501.4700, L501.2450, L501.2400, L100.0100, L500.4050 #### [facility] [address] [place], [address] Potassium [Moles/Vol] 4.5 mmol/L Normal 3.3-5.1 [facility] Comment on above: Performed By: #### L 501.4700, L501.2450, L501.2400, L100.0100, L500.4050 #### [facility] [address] [place], [address] Sodium [Moles/Vol] 135 mmol/L Normal 133-145 [facility] Comment on above: Performed By: #### L 501.4700, L501.2450, L501.2400, L100.0100, L500.4050 #### [facility] [address] [place], [address] T PROT 7.2 g/dL Normal 5.9-8.4 [facility] Comment on above: Performed By: #### L 501.4700, L501.2450, L501.2400, L100.0100, L500.4050 #### [facility] [address] [place], [address] Urea nitrogen [Mass/Vol] 12 mg/dL Normal 4-19 [facility] Comment on above: Performed By: #### L 501.4700, L501.2450, L501.2400, L100.0100, L500.4050 #### [facility] [address] [place], [address] Eosinophil percentageOrdered By: Adriana Coffman on 07-03-2024 Eosinophils/100 WBC (Bld) 3.4 % 0-5 [facility] Erythrocyte distribution wid th ratioOrdered By: Adriana Coffman on 07-03-2024 Erythrocyte distribution width (RBC) [Ratio] 13.3 % 11.6-14.6 [facility] Erythrocyte distribution wid th standard deviationOrdered By: Adriana Coffman on 07-03-2024 Erythrocyte distribution width (RBC) [Ratio] 45.4 fl High 35.1-43.9 [facility] Glomerular filtration rate ( GFR) estimation/1.73 sq m using serum, plasma, or whole bOrdered By: Adriana Coffman on 07-03-2024 GFR/1.73 sq M.predicted among non-blacks MDRD (S/P/Bld) [Vol rate/Area] 102 mL/min/{1.73_m2} >60 [facility] Comment on above: mL/min/1.73m2 CKD-EP I Creatinine Equation (2020) Hematocrit Auto (Bld) [Volum e fraction]Ordered By: Adriana Coffman on 07-03-2024 Hematocrit (Bld) [Volume fraction] 41.8 % 37-47 [facility] Hemoglobin measurementOrdere d By: Adriana Coffman on 07-03-2024 Hemoglobin (Bld) [Mass/Vol] 13.8 g/dL 12.0-15.0 [facility] Immature granulocytes/100 WB C Auto (Bld)Ordered By: Adriana Coffman on 07-03-2024 Immature granulocytes/100 WBC (Bld) 0.400 % 0.0-0.9 [facility] Comment on above: IG% - Immature Granu locytes (promyelocytes, myelocytes and metamyelocytes) > 1% indicates that a LEFT SHIFT is Present. Laboratory - Chemistry and C hemistry - challengeOrdered By: Adriana Coffman on 07-03-2024 AST [Catalytic activity/Vol] 26 U/L <32 [facility] Lipaseon 07-03-2024 Lipase [Catalytic activity/Vol] 35 U/L Normal 13-75 [facility] Comment on above: Result Comment: Marito carolina note: LIPASE revised reference range effective 22. New Lipase methodology. Expected to produce lower values than the previous assay method. NEW Reference Range: 13 - 75 U/L Performed By: #### L 501.4700, L501.2450, L501.2400, L100.0100, L500.4050 #### [facility] [address] [place] [address], [address] Lipase measurementOrdered By : Adriana Coffman on 07-03-2024 Lipase [Catalytic activity/Vol] 35 U/L 13-75 [facility] Comment on above: Please note:LIPASE r evised reference range effective 22. New Lipase methodology. Expected to produce lower values than the previous assay method. NEW Reference Range: 13 - 75 U/L MCV (mean corpuscular volume ) determinationOrdered By: Adriana Coffman on 07-03-2024 MCV (RBC) [Entitic vol] 93.1 fL 81-99 [facility] Mean corpuscular hemoglobin (MCH) determinationOrdered By: Adriana Coffman on 07-03-2024 MCH (RBC) [Entitic mass] 30.7 pg 27.0-32.0 [facility] Mean corpuscular hemoglobin concentration (MCHC) determinationOrdered By: Adriana Coffman on 07-03-2024 MCHC (RBC) [Mass/Vol] 33.0 g/dL 32-36 [facility] Mean platelet volume determi nationOrdered By: Adriana Coffman on 07-03-2024 Platelet mean volume (Bld) [Entitic vol] 10.7 fL 6.2-12.0 [facility] Monocyte percentageOrdered B y: Adriana Stevemaria guadalupe on 07-03-2024 Monocytes/100 WBC (Bld) 10.9 % High 0-10 [facility] Neutrophil percentageOrdered By: Adriana Stevemaria guadalupe on 07-03-2024 Neutrophils/100 WBC (Bld) 53.6 % 47-70 [facility] Nucleated red blood cell per centageOrdered By: Adriana Coffman on 07-03-2024 Nucleated RBC/100 WBC (Bld) [Ratio] 0 % 0-5 [facility] Outside Laborer Office Visit Reporton 07-03-2024 Outside Laborer Office Visit Report [facility] [address], [address] [place] [address] OFFICE VISIT Date of Service: 07/03/24 MR#: [id number] Acct: [id number] Name: HUAN ALLISON Rep #: [id number] : 1970 Provider: KHUSBHOO Simmons Age/Sex: 54/F Location: [facility] [place] Status: Signed Intake Vital Signs 08/14/23 08:10 07/03/24 10:02 Height 5 ft 3 in 5 ft 3 in Weight: 171 lb BMI 30.2 BP 156/91 H 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/ [employer] current occupational exposures/hazards: No pets and animals: Yes leisure activities: music history of recent travel: No sexually active: Yes Smoking Status: Never smoker second hand exposure: No alcohol intake: never substance use type: does not use well-balanced diet: daily or most days caffeine: Yes Type: tea eating out: other during the past year weight has: remained stable frequency: 3-4 times per week duration: 45-60 minutes/day giselle/rastafari: Jose Chinchilla seatbelt use: always do you feel safe at home: Yes additional social history: 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 Date Name GA/Weeks Outcome Route Bth Weight Infant Gen Labor Lgth Anesthesia Del Locatn Provider FOB Unknown Ben 1995 Unknown Cassie 1995 HPI Encounter for routine gynecological examination Details: HUAN ALLISON is a 54 year old who presents for annual exam. She no longer has IUD in place; this was removed July of 2023; she had bleeding after this for about 2 weeks and then has not had a menses since then. She reports she has had right side vaginal pain with intercourse. This is with penetration. She feels this most recent weekend though it had improved overall. She also reports she feels the last few months with bloating; feelings eww and not right. She reports she will eat and feel nauseated; even with water. She has not had work up started for this. She is taking Benefiber however has been taking this for years. No changes to diet otherwise. Has complaint of dull/moderate right upper quad discomfort. Last PAP: 2023; normal. HPV neg. History of abnormal PAP: no. Last mammogram: 2023; normal; scheduled for July 22 History of abnormal mammogram: no. Colon cancer screening: Cologuard up to date; normal. Other preventative health care screenings: Thierry Wan; PCP. Female Reproductive History Questions: metorrhagia: No, sexually active: Yes, dyspareunia: No and PCB: No ROS Const Constitutional: Denies chills, fatigue, fever(s), headache(s) or weight loss Eyes Eyes: Denies change in vision ENT ENT: Denies dizziness Resp Resp: Denies cough GI GI: Reports abdominal pain (see HPI), bloating and early satiety; Denies change in bowel habits, constipation or nausea : Reports pelvic pain (see HPI); Denies difficulty voiding, dysuria, hematuria, prolapse symptoms, urinary incontinence, vaginal discharge, vaginal dryness, vaginal odor or vaginal pruritus Skin Skin/Breast: Denies alopecia or rash Neuro Neuro: Denies dizziness Psych Psych: Denies anxiety or depression Endo Endo: Denies cold intolerance, excessive sweating or heat intolerance Exam Const General: cooperative, healthy appearing, comfortable, no acute distress, well groomed and well hydrated Nutritional Appearance: well nourished Orientation: alert, awake and (more content not included)... Normal [facility] Platelet countOrdered By: Marion Coffman on 07-03-2024 Platelets (Bld) [#/Vol] 319 10*3/uL 150-450 [facility] Potassium measurement (mass/ volume)Ordered By: Adriana Coffman on 07-03-2024 Potassium (Unsp spec) [Mass/Vol] 4.5 mmol/L 3.3-5.1 [facility] RBC Auto (Bld) [#/Vol]Ordere d By: Adriana Coffman on 07-03-2024 RBC (Bld) [#/Vol] 4.49 10*6/uL 4.2-5.4 [facility] Serum creatinine measurement (mass/volume)Ordered By: Adriana Coffman on 07-03-2024 Creatinine [Mass/Vol] 0.69 mg/dL Low 0.70-1.20 [facility] Serum globulin measurementOr dered By: Adriana Coffman on 07-03-2024 Globulin (S) [Mass/Vol] 3.1 g/dL 2.2-4.2 [facility] Serum glucose measurement (m ass/volume)Ordered By: Adriana Coffman on 07-03-2024 Glucose [Mass/Vol] 86 mg/dL 70-99 [facility] Serum or plasma alanine treviño otransferase (ALT) measurementOrdered By: Adriana Coffman on 07-03-2024 ALT [Catalytic activity/Vol] 26 U/L <35 [facility] Serum or plasma albumin kellie urement (mass/volume)Ordered By: Adriana Coffman on 07-03-2024 Albumin [Mass/Vol] 4.1 g/dL 3.5-5.0 [facility] Serum or plasma albumin/glob ulin mass ratioOrdered By: Adriana Coffman on 07-03-2024 Albumin/Globulin [Mass ratio] 1.3 {ratio} 0.9-2.4 [facility] Serum or plasma alkaline karsten sphatase measurementOrdered By: Adriana Coffman on 07-03-2024 ALP [Catalytic activity/Vol] 114 U/L High 35-104 [facility] Serum or plasma amylase kellie urement (enzymatic activity/volume)Ordered By: Adriana Coffman on 07-03-2024 Amylase [Catalytic activity/Vol] 57 U/L 28-100 [facility] Serum or plasma calcium kellie urement (mass/volume)Ordered By: Adriana Coffman on 07-03-2024 Calcium [Mass/Vol] 9.2 mg/dL 7.6-11.0 [facility] Serum or plasma urea nitroge n measurement (mass/volume)Ordered By: Adriana Coffman on 07-03-2024 Urea nitrogen [Mass/Vol] 12 mg/dL 4-19 [facility] Sodium levelOrdered By: Moraima Coffman on 07-03-2024 Sodium [Moles/Vol] 135 mmol/L 133-145 [facility] Total proteinOrdered By: Arian Coffman on 07-03-2024 Protein [Mass/Vol] 7.2 g/dL 5.9-8.4 [facility] White blood cell (WBC) count Ordered By: Adriana Coffman on 07-03-2024 WBC (Bld) [#/Vol] 8.0 10*3/uL 4.4-11.0 [facility] Absolute lymphocyte countOrd ered By: Thierry Wan on 03-20-2023 Lymphocytes Auto (Unsp spec) [#/Vol] 2.90 10*3/uL 0.83-4.51 [facility] Automated lymphocyte count a s percentage of total leukocytesOrdered By: Thierry Wan on 03-20-2023 Lymphocytes/100 WBC Auto (Unsp spec) 35.9 % 19-41 [facility] Basophil percentageOrdered B y: Thierry Wan on 03-20-2023 Basophils/100 WBC (Bld) 0.9 % 0-1 [facility] Chloride [Moles/Vol] 103 mmol/L 98-107 [facility] Eosinophils/100 WBC (Bld) 3.5 % 0-5 [facility] Glucose [Mass/Vol] 135 mg/dL 74-106 [facility] Comment on above: Fasting Glucose resu lt greater than or equal to 126 mg/dL suggests DIABETES MELLITUS per A.D.A. criteria. Hemoglobin (Bld) [Mass/Vol] 14.4 g/dL 12.0-15.0 [facility] Monocytes/100 WBC (Bld) 7.2 % 0-10 [facility] Neutrophils (Bld) [#/Vol] 4.2 10*3/uL 2.0-7.7 [facility] Neutrophils/100 WBC (Bld) 52.4 % 47-70 [facility] Potassium [Moles/Vol] 3.4 mmol/L 3.5-5.1 [facility] Sodium [Moles/Vol] 137 mmol/L 136-145 [facility] WBC (Bld) [#/Vol] 8.1 10*3/uL 4.4-11.0 [facility] Determination of erythrocyte mean corpuscular volume (MCV)Ordered By: Thierry Wan on 03-20-2023 MCV (RBC) [Entitic vol] 90.4 fL 81-99 [facility] Erythrocyte distribution wid th ratioOrdered By: Thierry Wan on 03-20-2023 Erythrocyte distribution width (RBC) [Ratio] 11.6 % 11.6-14.6 [facility] Erythrocyte distribution wid th standard deviationOrdered By: Thierry Wan on 03-20-2023 Erythrocyte distribution width (RBC) [Entitic vol] 38.4 fL 35.1-43.9 [facility] Hematocrit Auto (Bld) [Volum e fraction]Ordered By: Thierry Wan on 03-20-2023 Hematocrit (Bld) [Volume fraction] 42.5 % 37-47 [facility] Immature granulocytes/100 WB C Auto (Bld)Ordered By: Thierry Wan on 03-20-2023 Immature granulocytes/100 WBC (Bld) 0.100 % 0.0-0.9 [facility] Comment on above: IG% - Immature Granu locytes (promyelocytes, myelocytes and metamyelocytes) > 1% indicates that a LEFT SHIFT is Present. International normalized rat io (INR) calculationOrdered By: Thierry Wan on 03-20-2023 INR Coag (PPP) [Relative time] 1.0 {INR} [facility] - Chemistry and C hemistry - challengeOrdered By: Thierry Wan 03-20-2023 CO2 [Moles/Vol] 29.0 mmol/L 21.0-32.0 [facility] Urea nitrogen/Creatinine [Mass ratio] 20.0 mg/mg 10-20 [facility] - CoagulationOrde red By: Thierry Wan on 03-20-2023 PT Coag (PPP) [Time] 13.4 s 11.7-14.9 [facility] - Hematology and Cell countsOrdered By: Thierry Wan 03-20-2023 MCH (RBC) [Entitic mass] 30.6 pg 27.0-32.0 [facility] MCHC (RBC) [Mass/Vol] 33.9 g/dL 32-36 [facility] Nucleated RBC/100 WBC (Bld) [Ratio] 0 % 0-5 [facility] Platelets (Bld) [#/Vol] 275 10*3/uL 150-450 [facility] No Panel InformationOrdered By: Thierry Wan on 03-20-2023 Estimated GFR (MDRD) Amer 112 mL/min >60 [facility] Comment on above: GFR Calc Estimated GFR (MDRD) Non-Af Amer 92 mL/min >60 [facility] Comment on above: Non- GFR Calc Platelet mean volume Justen-Ec ker (Bld) [Entitic vol]Ordered By: Thierry Wan on 03-20-2023 Platelet mean volume (Bld) [Entitic vol] 11.1 fL 6.2-12.0 [facility] RBC Auto (Bld) [#/Vol]Ordere d By: Thierry Wan on 03-20-2023 RBC (Bld) [#/Vol] 4.70 10*6/uL 4.2-5.4 [facility] Serum or plasma calcium kellie urement (mass/volume)Ordered By: Thierry Wan on 03-20-2023 Calcium [Mass/Vol] 8.6 mg/dL 8.5-10.1 [facility] Serum or plasma creatinine m easurement (mass/volume)Ordered By: Thierry Wan on 03-20-2023 Creatinine [Mass/Vol] 0.70 mg/dL 0.55-1.02 [facility] Comment on above: The validity of the calculated GFR & GFRAA in patients over 70 years has not been determined. Clinical correlation is essential. Serum or plasma urea nitroge n measurement (mass/volume)Ordered By: Thierry Wan on 03-20-2023 Urea nitrogen [Mass/Vol] 14 mg/dL 7-18 [facility] Thin prep Papanicolaou smear with manual screeningOrdered By: Thierry Wan on 03-20-2023 Thin prep Papanicolaou smear with manual screening 5 5-15 [facility] Absolute lymphocyte countOrd ered By: Thierry Wan on 12-05-2022 Lymphocytes Auto (Unsp spec) [#/Vol] 3.29 10*3/uL 0.83-4.51 [facility] Basophil percentageOrdered B y: Thierry Wan on 12-05-2022 Basophils/100 WBC (Bld) 1.0 % 0-1 [facility] Bilirubin [Mass/Vol] 0.40 mg/dL 0.20-1.00 [facility] Comment on above: For patients on eltr ombopag therapy, use of Dimension [place] TBIL is not recommended. Chloride [Moles/Vol] 104 mmol/L 98-107 [facility] Eosinophils/100 WBC (Bld) 3.2 % 0-5 [facility] Glucose [Mass/Vol] 88 mg/dL 74-106 [facility] Neutrophils (Bld) [#/Vol] 4.0 10*3/uL 2.0-7.7 [facility] Neutrophils/100 WBC (Bld) 48.1 % 47-70 [facility] Potassium [Moles/Vol] 3.9 mmol/L 3.5-5.1 [facility] Protein [Mass/Vol] 7.8 g/dL 6.4-8.2 [facility] Sodium [Moles/Vol] 139 mmol/L 136-145 [facility] WBC (Bld) [#/Vol] 8.4 10*3/uL 4.4-11.0 [facility] Blood erythrocytes count (nu mber/volume)Ordered By: Thierry Wan on 12-05-2022 RBC (Bld) [#/Vol] 4.52 10*6/uL 4.2-5.4 [facility] Blood hemoglobin measurement (mass/volume)Ordered By: Thierry Wan on 12-05-2022 Hemoglobin (Bld) [Mass/Vol] 14.2 g/dL 12.0-15.0 [facility] Blood lymphocytes/100 leukoc ytesOrdered By: Thierry aWn on 12-05-2022 Lymphocytes/100 WBC (Bld) 39.3 % 19-41 [facility] Blood monocytes/100 leukocyt esOrdered By: Thierry Wan on 12-05-2022 Monocytes/100 WBC (Bld) 8.2 % 0-10 [facility] Blood platelet mean volumeOr dered By: Thierry Wan on 12-05-2022 Platelet mean volume (Bld) [Entitic vol] 10.9 fL 6.2-12.0 [facility] Determination of erythrocyte mean corpuscular volume (MCV)Ordered By: Thierry Wan on 12-05-2022 MCV (RBC) [Entitic vol] 94.5 fL 81-99 [facility] Hematocrit Auto (Bld) [Volum e fraction]Ordered By: Thierry Wan on 12-05-2022 Hematocrit (Bld) [Volume fraction] 42.7 % 37-47 [facility] Laboratory - Chemistry and C hemistry - challengeOrdered By: Thierry Wan on 12-05-2022 ALP [Catalytic activity/Vol] 110 U/L 45-117 [facility] ALT [Catalytic activity/Vol] 28 U/L 13-56 [facility] CO2 [Moles/Vol] 30.0 mmol/L 21.0-32.0 [facility] Globulin (S) [Mass/Vol] 4.1 g/dL 2.2-4.2 [facility] Urea nitrogen/Creatinine [Mass ratio] 16.5 mg/mg 10-20 [facility] Laboratory - Hematology and Cell countsOrdered By: Thierry Wan on 12-05-2022 Erythrocyte distribution width (RBC) [Entitic vol] 41.3 fL 35.1-43.9 [facility] Erythrocyte distribution width (RBC) [Ratio] 11.9 % 11.6-14.6 [facility] Immature granulocytes/100 WBC (Bld) 0.200 % 0.0-0.9 [facility] Comment on above: IG% - Immature Granu locytes (promyelocytes, myelocytes and metamyelocytes) > 1% indicates that a LEFT SHIFT is Present. MCH (RBC) [Entitic mass] 31.4 pg 27.0-32.0 [facility] Nucleated RBC/100 WBC (Bld) [Ratio] 0 % 0-5 [facility] MCHC Auto (RBC) [Mass/Vol]Or dered By: Thierry Wan on 12-05-2022 MCHC (RBC) [Mass/Vol] 33.3 g/dL 32-36 [facility] No Panel InformationOrdered By: Thierry Wan on 12-05-2022 Estimated GFR (MDRD) Amer 97 mL/min >60 [facility] Comment on above: GFR Calc Estimated GFR (MDRD) Non-Af Amer 80 mL/min >60 [facility] Comment on above: Non- GFR Calc Thyroid Stimulating Hormone (TSH) 0.81 uIU/mL 0.358-3.74 [facility] Platelets bldOrdered By: Thierry Wan on 12-05-2022 Platelets (Bld) [#/Vol] 299 10*3/uL 150-450 [facility] Serum or plasma albumin kellie urement (mass/volume)Ordered By: Thierry Wan on 12-05-2022 Albumin [Mass/Vol] 3.7 g/dL 3.2-5.0 [facility] Serum or plasma albumin/glob ulin mass ratioOrdered By: Thierry Wan on 12-05-2022 Albumin/Globulin [Mass ratio] 0.9 {ratio} 0.9-2.4 [facility] Serum or plasma calcium kellie urement (mass/volume)Ordered By: Thierry Wan on 12-05-2022 Calcium [Mass/Vol] 8.8 mg/dL 8.5-10.1 [facility] Serum or plasma creatinine m easurement (mass/volume)Ordered By: Thierry Wan on 12-05-2022 Creatinine [Mass/Vol] 0.79 mg/dL 0.55-1.02 [facility] Comment on above: The validity of the calculated GFR & GFRAA in patients over 70 years has not been determined. Clinical correlation is essential. Serum or plasma urea nitroge n measurement (mass/volume)Ordered By: Thierry Wan on 12-05-2022 Urea nitrogen [Mass/Vol] 13 mg/dL 7-18 [facility] Thin prep Papanicolaou smear with manual screeningOrdered By: Thierry Wan on 12-05-2022 Thin prep Papanicolaou smear with manual screening 20 U/L 15-37 [facility] Thin prep Papanicolaou smear with manual screening 5 5-15 [facility] Absolute lymphocyte countOrd ered By: Dr. Wan on 12-20-2021 Lymphocytes Auto (Unsp spec) [#/Vol] 2.31 10*3/uL 0.83-4.51 [facility] Basophil percentageOrdered B y: Dr. Wan on 12-20-2021 Basophils/100 WBC (Bld) 0.9 % 0-1 [facility] Bilirubin [Mass/Vol] 0.50 mg/dL 0.20-1.00 [facility] Comment on above: For patients on eltr ombopag therapy, use of Dimension [place] TBIL is not recommended. Chloride [Moles/Vol] 104 mmol/L 98-107 [facility] Eosinophils/100 WBC (Bld) 2.1 % 0-5 [facility] Glucose [Mass/Vol] 72 mg/dL 74-106 [facility] Neutrophils (Bld) [#/Vol] 4.3 10*3/uL 2.0-7.7 [facility] Neutrophils/100 WBC (Bld) 57.5 % 47-70 [facility] Potassium [Moles/Vol] 4.1 mmol/L 3.5-5.1 [facility] Comment on above: Moderate Hemolysis, Result may be falsely increased. Protein [Mass/Vol] 7.9 g/dL 6.4-8.2 [facility] Sodium [Moles/Vol] 140 mmol/L 136-145 [facility] WBC (Bld) [#/Vol] 7.5 10*3/uL 4.4-11.0 [facility] Blood erythrocytes count (nu mber/volume)Ordered By: Dr. Wan on 12-20-2021 RBC (Bld) [#/Vol] 4.56 10*6/uL 4.2-5.4 [facility] Blood hemoglobin measurement (mass/volume)Ordered By: Dr. Wan on 12-20-2021 Hemoglobin (Bld) [Mass/Vol] 14.5 g/dL 12.0-15.0 [facility] Blood lymphocytes/100 leukoc ytesOrdered By: Dr. Wan on 12-20-2021 Lymphocytes/100 WBC (Bld) 30.9 % 19-41 [facility] Blood monocytes/100 leukocyt esOrdered By: Dr. Wan on 12-20-2021 Monocytes/100 WBC (Bld) 8.3 % 0-10 [facility] Blood platelet mean volumeOr dered By: Dr. Wan on 12-20-2021 Platelet mean volume (Bld) [Entitic vol] 10.8 fL 6.2-12.0 [facility] Determination of erythrocyte mean corpuscular volume (MCV)Ordered By: Dr. Wan on 12-20-2021 MCV (RBC) [Entitic vol] 94.3 fL 81-99 [facility] Hematocrit Auto (Bld) [Volum e fraction]Ordered By: Dr. Wan on 12-20-2021 Hematocrit (Bld) [Volume fraction] 43.0 % 37-47 [facility] Laboratory - Chemistry and C hemistry - challengeOrdered By: Dr. Wan on 12-20-2021 ALP [Catalytic activity/Vol] 94 U/L 45-117 [facility] ALT [Catalytic activity/Vol] 26 U/L 13-56 [facility] CO2 [Moles/Vol] 30.0 mmol/L 21.0-32.0 [facility] Globulin (S) [Mass/Vol] 4.0 g/dL 2.2-4.2 [facility] Urea nitrogen/Creatinine [Mass ratio] 16.8 mg/mg 10-20 [facility] Laboratory - Hematology and Cell countsOrdered By: Dr. Wan on 12-20-2021 Erythrocyte distribution width (RBC) [Entitic vol] 43.8 fL 35.1-43.9 [facility] Erythrocyte distribution width (RBC) [Ratio] 12.6 % 11.6-14.6 [facility] Immature granulocytes/100 WBC (Bld) 0.300 % 0.0-0.9 [facility] Comment on above: IG% - Immature Granu locytes (promyelocytes, myelocytes and metamyelocytes) > 1% indicates that a LEFT SHIFT is Present. MCH (RBC) [Entitic mass] 31.8 pg 27.0-32.0 [facility] Nucleated RBC/100 WBC (Bld) [Ratio] 0 % 0-5 [facility] MCHC Auto (RBC) [Mass/Vol]Or dered By: Dr. Wan on 12-20-2021 MCHC (RBC) [Mass/Vol] 33.7 g/dL 32-36 [facility] No Panel InformationOrdered By: Dr. Wan on 12-20-2021 Estimated GFR (MDRD) Amer 110 mL/min >60 [facility] Comment on above: GFR Calc Estimated GFR (MDRD) Non-Af Amer 91 mL/min >60 [facility] Comment on above: Non- GFR Calc Thyroid Stimulating Hormone (TSH) 0.65 uIU/mL 0.358-3.74 [facility] Platelets bldOrdered By: Dr. Wan on 12-20-2021 Platelets (Bld) [#/Vol] 301 10*3/uL 150-450 [facility] Serum or plasma albumin kellie urement (mass/volume)Ordered By: Dr. Wan on 12-20-2021 Albumin [Mass/Vol] 3.9 g/dL 3.2-5.0 [facility] Serum or plasma albumin/glob ulin mass ratioOrdered By: Dr. Wan on 12-20-2021 Albumin/Globulin [Mass ratio] 1.0 {ratio} 0.9-2.4 [facility] Serum or plasma calcium kellie urement (mass/volume)Ordered By: Dr. Wan on 12-20-2021 Calcium [Mass/Vol] 9.1 mg/dL 8.5-10.1 [facility] Serum or plasma creatinine m easurement (mass/volume)Ordered By: Dr. Wan on 12-20-2021 Creatinine [Mass/Vol] 0.71 mg/dL 0.55-1.02 [facility] Comment on above: The validity of the calculated GFR & GFRAA in patients over 70 years has not been determined. Clinical correlation is essential. Serum or plasma urea nitroge n measurement (mass/volume)Ordered By: Dr. Wan on 12-20-2021 Urea nitrogen [Mass/Vol] 12 mg/dL 7-18 [facility] Thin prep Papanicolaou smear with manual screeningOrdered By: Dr. Wan on 12-20-2021 Thin prep Papanicolaou smear with manual screening 31 U/L 15-37 [facility] Comment on above: Moderate Hemolysis, Result may be falsely increased. Thin prep Papanicolaou smear with manual screening 6 5-15 [facility] Absolute lymphocyte counton 11-01-2021 Lymphocytes Auto (Unsp spec) [#/Vol] 2.59 10*3/uL 0.83-4.51 [facility] Work Phone: Basophil percentageon 2021 Basophils/100 WBC (Bld) 0.7 % 0-1 [facility] Work Phone: Bilirubin [Mass/Vol] 0.50 mg/dL 0.20-1.00 [facility] Work Phone: Comment on above: For patients on eltr ombopag therapy, use of Dimension [place] TBIL is not recommended. Chloride [Moles/Vol] 105 mmol/L 98-107 [facility] Work Phone: Eosinophils/100 WBC (Bld) 3.1 % 0-5 [facility] Work Phone: Glucose [Mass/Vol] 73 mg/dL 74-106 [facility] Work Phone: [phone] Neutrophils (Bld) [#/Vol] 4.9 10*3/uL 2.0-7.7 [facility] Work Phone: Neutrophils/100 WBC (Bld) 56.4 % 47-70 [facility] Work Phone: [phone] Potassium [Moles/Vol] 4.0 mmol/L 3.5-5.1 [facility] Work Phone: [phone] Protein [Mass/Vol] 7.5 g/dL 6.4-8.2 [facility] Work Phone: [phone] Sodium [Moles/Vol] 140 mmol/L 136-145 [facility] Work Phone: [phone] WBC (Bld) [#/Vol] 8.6 10*3/uL 4.4-11.0 [facility] Work Phone: [phone] Blood erythrocytes count (nu mber/volume)on 11-01-2021 RBC (Bld) [#/Vol] 4.35 10*6/uL 4.2-5.4 [facility]: [phone] Blood hemoglobin measurement (mass/volume)on 11-01-2021 Hemoglobin (Bld) [Mass/Vol] 14.0 g/dL 12.0-15.0 [facility] Work Phone: Blood lymphocytes/100 leukoc yteson 11-01-2021 Lymphocytes/100 WBC (Bld) 30.0 % 19-41 [facility] Work Phone: Blood monocytes/100 leukocyt eson 11-01-2021 Monocytes/100 WBC (Bld) 9.7 % 0-10 [facility] Work Phone: Blood platelet mean volumeon 11-01-2021 Platelet mean volume (Bld) [Entitic vol] 10.7 fL 6.2-12.0 [facility] Work Phone: Determination of erythrocyte mean corpuscular volume (MCV)on 11-01-2021 MCV (RBC) [Entitic vol] 94.3 fL 81-99 [facility] Work Phone: Erythrocyte sedimentation ra juliane 11-01-2021 ESR (Bld) [Velocity] 11 mm/h 0-30 [facility] Work Phone: Hematocrit Auto (Bld) [Volum e fraction]on 11-01-2021 Hematocrit (Bld) [Volume fraction] 41.0 % 37-47 [facility] Work Phone: Laboratory - Chemistry and C hemistry - challengeon 11-01-2021 ALP [Catalytic activity/Vol] 89 U/L 45-117 [facility] Work Phone: ALT [Catalytic activity/Vol] 29 U/L 13-56 [facility] Work Phone: CO2 [Moles/Vol] 29.0 mmol/L 21.0-32.0 [facility] Work Phone: Cobalamin (Vitamin B12) [Mass/Vol] 1200 pg/mL 211-911 [facility] Work Phone: Globulin (S) [Mass/Vol] 3.8 g/dL 2.2-4.2 [facility] Work Phone: Urea nitrogen/Creatinine [Mass ratio] 17.1 mg/mg 10-20 [facility] Work Phone: Laboratory - Hematology and Cell countson 11-01-2021 Erythrocyte distribution width (RBC) [Entitic vol] 42.5 fL 35.1-43.9 [facility] Work Phone: Erythrocyte distribution width (RBC) [Ratio] 12.2 % 11.6-14.6 [facility] Work Phone: Immature granulocytes/100 WBC (Bld) 0.100 % 0.0-0.9 [facility] Work Phone: Comment on above: IG% - Immature Granu locytes (promyelocytes, myelocytes and metamyelocytes) > 1% indicates that a LEFT SHIFT is Present. MCH (RBC) [Entitic mass] 32.2 pg 27.0-32.0 [facility] Work Phone: Nucleated RBC/100 WBC (Bld) [Ratio] 0 % 0-5 [facility] Work Phone: MCHC Auto (RBC) [Mass/Vol]on 11-01-2021 MCHC (RBC) [Mass/Vol] 34.1 g/dL 32-36 [facility] Work Phone: No Panel Informationon 11-01 Anti-Nuclear Antibody Screen Negative Negative [facility] Work Phone: Comment on above: Performed at: [facility] [employer] [address] [id number] Director: Flip Tamez PhD, Phone: [phone] Estimated GFR (MDRD) Amer 102 mL/min >60 [facility] Work Phone: Comment on above: GFR Calc Estimated GFR (MDRD) Non-Af Amer 84 mL/min >60 [facility] Work Phone: Comment on above: Non- GFR Calc Platelets bldon 11-01-2021 Platelets (Bld) [#/Vol] 293 10*3/uL 150-450 [facility] Work Phone: Serum cyclic citrullinated p eptide IgG antibody assay (units/volume)on 11-01-2021 Cyclic citrullinated peptide IgG Qn 5 units 0-19 [facility] Work Phone: Comment on above: Negative <20 Weak po sitive 20 - 39 Moderate positive 40 - 59 Strong positive >59Performed at: [address] [id number] Director: Rubén Perez MD, Phone: [phone] Serum or plasma C reactive p rotein measurement (mass/volume)on 11-01-2021 CRP [Mass/Vol] 3.56 mg/L 0.0-3.0 [facility] Work Phone: Comment on above: C-Reactive Protein ( CRP) provides useful information for thediagnosis, therapy and monitoring of inflammatory processesand associated diseases. For the evaluation of Relative Riskfor Cardiovascular Disease, a High Sensitivity CRP (HSCRP)should be ordered. Serum or plasma albumin kellie urement (mass/volume)on 11-01-2021 Albumin [Mass/Vol] 3.7 g/dL 3.2-5.0 [facility] Work Phone: Serum or plasma albumin/glob ulin mass ratioon 11-01-2021 Albumin/Globulin [Mass ratio] 1.0 {ratio} 0.9-2.4 [facility] Work Phone: Serum or plasma calcium kellie urement (mass/volume)on 11-01-2021 Calcium [Mass/Vol] 9.1 mg/dL 8.5-10.1 [facility] Work Phone: Serum or plasma creatinine m easurement (mass/volume)on 11-01-2021 Creatinine [Mass/Vol] 0.76 mg/dL 0.55-1.02 [facility] Work Phone: Comment on above: The validity of the calculated GFR & GFRAA in patients over 70 years has not been determined. Clinical correlation is essential. Serum or plasma urea nitroge n measurement (mass/volume)on 11-01-2021 Urea nitrogen [Mass/Vol] 13 mg/dL 7-18 [facility] Work Phone: Serum or plasma uric acid me asurement (mass/volume)on 11-01-2021 Urate [Mass/Vol] 5.7 mg/dL 2.6-6.0 [facility] Work Phone: Comment on above: The drugs N-Acetylcy steine and Metamizole may falsely depress this assay. Serum rheumatoid factor dete ctionon 11-01-2021 Rheumatoid factor Ql (S) < 10.0 IU/mL <15 [facility] Work Phone: Thin prep Papanicolaou smear with manual screeningon 11-01-2021 Thin prep Papanicolaou smear with manual screening 16 U/L 15-37 [facility] Work Phone: Thin prep Papanicolaou smear with manual screening 6 5-15 [facility] Work Phone: Whole blood hemoglobin A1c/t otal hemoglobin ratio (mass fraction)on 11-01-2021 HbA1c (Bld) [Mass fraction] 5.3 % 3.8-5.6 [facility] Work Phone: Comment on above: Normal < 5.7 % Predi abetic 5.7 - 6.4 % Diabetic >or= 6.5 % Please note range changes. MA MAMMOGRAM DIAGNOSTIC LEFT on 04-21-2017 MA MAMMOGRAM DIAGNOSTIC LEFT ORIGINALFROM:[place] [address]Phone: PROCEDURE FOR:HUAN ALLISON[address] [place], [place] [address]Abfm: [phone]#: [id number]#: [id number]#: [id number]: 1970Age: 47 TO:CECE JUAN MD[address] [place] [address] #[id number] LEFT DIGITAL DIAGNOSTIC MAMMOGRAM WITH CAD WITH MEDIOLATERAL CRANIOCAUDAL ROLLED LATERAL SPOT COMPRESSION: 04/21/2017CLINICAL: MAMMOGRAPHIC DENSITY LEFT BREAST. Comparison is made to exams dated: 04/14/2017 mammogram, 02/26/2016 mammogram, and 02/10/2015 mammogram - [facility]. There are scattered fibroglandular elements in the left breast. Current study was also evaluated with a Computer Aided Detection (CAD) system. There is a 6 mm oval mass with a circumscribed margin in the left breast at 6 o'clock middle depth. This is seen in additional views. No other significant masses or calcifications are seen in the breast. IMPRESSION: INCOMPLETE: NEEDS ADDITIONAL IMAGING EVALUATIONThe 6 mm oval mass in the left breast appears indeterminate. An ultrasound examination will be performed today and reported separately. CLARE MARTINO MD ab/:04/21/2017 13:18:08 Refrigeration Insulator: MARNI ROBERTS RT (R)(M), [facility] Abnormal-Needs W/U BI-RADS 0 Mammogram BI-RADS: 0 Indeterminate Normal [facility] ([place]) US BREAST LEFT LIMITEDon US BREAST LEFT LIMITED ORIGINALFROM:[address] [address]Nauhw: [phone] PROCEDURE FOR:HUAN ALLISON[address] [place], [place] [address]Bjvk: [phone]#: [id number]#: [id number]#: [id number]: 1970Age: 47 TO:CECE JUAN MD[address] [place] [address] #[id number] ULTRASOUND OF LEFT BREAST: 04/21/2017CLINICAL: MAMMOGRAPHIC DENSITY LEFT BREAST. Comparison is made to exams dated: 04/21/2017 mammogram, 04/14/2017 mammogram, and 02/26/2016 mammogram - [facility]. Color flow and real-time ultrasound of the left breast were performed. There is a 5 mm round cyst in the left breast at 5 o'clock middle depth. This round cyst is septated with an abrupt boundary. This correlates with mammography findings. IMPRESSION: PROBABLY BENIGN - FOLLOW-UP RECOMMENDEDThe 5 mm round cyst in the left breast is consistent with complicated cysts and appears probably benign. A follow-up left ultrasound in 6 months is recommended to demonstrate stability. CB VASQUEZ MD [facility]/:04/28/2017 17:01:58 Refrigeration Insulator: FEROZ DUONG RT(R), [facility] Probably Benign BI-RADS 3 Ultrasound BI-RADS: 3 Probably benign Normal [facility] ([place]) MA MAMMOGRAM SCREENING BILAT ERAL W/TOMOon 04-14-2017 MA MAMMOGRAM SCREENING BILATERAL W/MALLIKA ORIGINALFROM:[facility], [place] [address]Rttkj: [phone] PROCEDURE FOR:HUAN ALLISON[address] [place], [place] [address]Fwcm: [phone]#: [id number]#: [id number]#: [id number]: 1970Age: 47 TO:CECE JUAN MD[address] [place], [place] [address] #[id number] DIGITAL SCREENING MAMMOGRAM 3D/2D WITH CAD WITH MEDIOLATERAL OBLIQUE CRANIOCAUDAL: 04/14/2017Comparison is made to exams dated: 02/26/2016 mammogram and 02/10/2015 mammogram - [facility]. There are scattered fibroglandular elements in both breasts. Current study was also evaluated with a Computer Aided Detection (CAD) system. There is a new 5 mm round asymmetry in the left breast middle depth central to the nipple seen on the craniocaudal view only. No other significant masses, calcifications, or other findings are seen in either breast. IMPRESSION: INCOMPLETE: NEEDS ADDITIONAL IMAGING EVALUATIONThe new 5 mm round asymmetry in the left breast appears indeterminate. Additional views are recommended including: spot and rolled CC, and ML projections. If a mass is confirmed, ultrasonography is recommended. CB VASQUEZ MD cm/:04/14/2017 17:05:26 Refrigeration Insulator: MADISON GONZALES RT (R)(M), [facility]: Abnormal-Needs W/U BI-RADS 0 Mammogram BI-RADS: 0 Indeterminate Normal [facility] ([place]) Vital Signs Date Time Vital Sign Value Performing Clinician Laynei osmel 11-04-2024 14:37-0400 Body mass index (BMI) [Ratio] 29.62 kg/m2 Maylin Serrano MD Work Phone: [facility] 11-04-2024 14:37-0400 Body weight 75.84 kg Maylin Serrano MD Work Phone: [facility] 11-04-2024 14:37-0400 Diastolic blood pressure 78 mm[Hg] Maylin Serrano MD Work Phone: [facility] 11-04-2024 14:37-0400 Systolic blood pressure 120 mm[Hg] Maylin Serrano MD Work Phone: [facility] 10-14-2024 14:27-0400 Body height 160 cm Maylin Serrano MD Work Phone: [facility] 10-14-2024 14:27-0400 Body mass index (BMI) [Ratio] 29.55 kg/m2 Maylin Serrano MD Work Phone: [facility] 10-14-2024 14:27-0400 Body weight 75.66 kg Maylin Serrano MD Work Phone: [facility] 10-14-2024 14:27-0400 Diastolic blood pressure 88 mm[Hg] Maylin Serrano MD Work Phone: [facility] 10-14-2024 14:27-0400 Systolic blood pressure 138 mm[Hg] Maylin Serrano MD Work Phone: [facility] 07-03-2024 10:02-0400 Body height 160.[address] Thierry Wan MD Work Phone: [facility] 07-03-2024 10:02-0400 Body mass index (BMI) [Ratio] 30.2 kg/m2 Dr. Thierry Wan MD Work Phone: [facility] 07-03-2024 10:02-0400 Body weight 77.[address] Thierry Wan MD Work Phone: [facility] 07-03-2024 10:02-0400 Diastolic blood pressure 91 mm[Hg] Dr. Thierry Wan MD Work Phone: [facility] 07-03-2024 10:02-0400 Systolic blood pressure 156 mm[Hg] Dr. Thierry Wan MD Work Phone: [facility] Encounters Encounter Date Encounter Type Care Provider Facility Start: 12-16-2024 ambulatory Thierry [facility] [place] Facility:[facility] Start: 12-11-2024 End: 12-11-2024 ambulatory [facility] Facility:[facility] Start: 11-18-2024 End: 11-18-2024 ambulatory [facility] Facility:[facility] Start: 11-04-2024 End: 11-04-2024 Patient encounter procedure Maylin Serrano MD Work Phone: OB/Gynecology Comment on above: Endometrial thickeni ng on ultrasound (Primary Dx) Start: 11-04-2024 End: 11-04-2024 ambulatory [facility] Facility:[facility] Start: 10-14-2024 End: 10-14-2024 Patient encounter procedure Maylin Serrano MD Work Phone: OB/Gynecology Comment on above: Endometrial thickeni ng on ultrasound (Primary Dx); Abdominal bloating; Abdominal fullness; Cyst of ovary, unspecified laterality; Hot flashes; Night sweats Start: 10-14-2024 End: 10-14-2024 ambulatory [facility] Facility:[facility] Start: 07-22-2024 End: 07-22-[address] Thierry Wan MD Work Phone: [facility] Work Phone: Start: 07-22-2024 End: 07-22-2024 Patient encounter procedure Adriana CUELLO -Outpatient Breast Imaging Work Phone: Start: 07-22-2024 End: 07-22-2024 ambulatory Thierry Wan Facility:[facility] Start: 07-13-2024 End: 07-13-[address] Thierry Wan MD Work Phone: [facility] Work Phone: Start: 07-13-2024 End: 07-13-2024 Patient encounter procedure Adriana CUELLO -Ultrasound [facility] Work Phone: Start: 07-12-2024 End: 07-13-[address] Thierry Wan MD Work Phone: [facility] Work Phone: Start: 07-12-2024 End: 07-12-2024 Patient encounter procedure Adriana Coffman NP-Lesli -[facility] Work Phone: Start: 07-12-2024 End: 07-12-2024 ambulatory Thierry Wan Facility:[facility] Start: 07-03-2024 End: 07-03-[address] Thierry Wan MD Work Phone: [facility] Work Phone: Start: 07-03-2024 End: 07-03-2024 Patient encounter procedure Adriana Coffman NP-C -Lab, [facility] Start: 07-03-2024 End: 07-03-2024 Patient encounter procedure Adriana CUELLO -[facility] Work Phone: Start: 07-03-2024 End: 07-03-2024 Patient encounter status Adriana Coffman NP-C [facility] Start: 07-03-2024 End: 07-03-[address] Thierry Wan MD Work Phone: [facility] Work Phone: Start: 07-03-2024 End: 07-03-2024 ambulatory Thierry Wan Facility:[facility] Start: 03-20-2023 End: 03-20-2023 ambulatory [facility] Work Phone: Start: 03-20-2023 End: 03-20-2023 Patient encounter procedure [facility]-Laboratory, Phy Office 3rd Flr Start: 02-17-2023 End: 02-17-2023 ambulatory [facility] Work Phone: Start: 02-17-2023 End: 02-17-2023 Patient encounter procedure [facility]-MRI - [facility] Work Phone: Start: 12-05-2022 End: 12-05-2022 ambulatory [facility] Work Phone: Start: 12-05-2022 End: 12-05-2022 Patient encounter procedure [facility]-Laboratory, Phy Office 3rd Flr Start: 04-04-2022 End: 04-04-2022 ambulatory [facility] Work Phone: Start: 04-04-2022 End: 04-04-2022 Patient encounter procedure [facility]-Outpatient Breast Imaging Start: 02-16-2022 End: 02-16-2022 ambulatory [facility] Work Phone: Start: 02-16-2022 End: 02-16-2022 Patient encounter procedure [facility]-Pulmonary Services/Neurology Start: 12-20-2021 End: 12-20-2021 ambulatory [facility] Work Phone: Start: 12-20-2021 End: 12-20-2021 Patient encounter procedure [facility]-Laboratory, Phy Office 3rd Flr Start: 11-01-2021 End: 11-01-2021 ambulatory [facility] Work Phone: Start: 11-01-2021 End: 11-01-2021 Patient encounter procedure [facility]-Laboratory, [place] Start: 09-13-2021 End: 09-13-2021 Discharged Recurring [facility]-Physical Therapy Start: 03-19-2021 End: 03-19-2021 Patient encounter procedure [facility]-Outpatient Pavilion Ultrasound Start: 03-15-2021 End: 03-15-2021 Patient encounter procedure [facility]-Outpatient Breast Imaging Start: 04-21-2017 End: 04-22-2017 Ambulatory CECE JUAN Facility:[facility] Start: 04-14-2017 End: 04-15-2017 Ambulatory CECE JUAN Facility:B Procedures Date Procedure Procedure Detail Performing Clinician Start: 07-22-2024 Screening mammography Claire Wan MD Work Phone: Start: 07-13-[address] Soni Wan MD Work Phone: Start: 07-12-[address] Thirery rodriguez MD Work Phone: Start: 02-17-2023 End: 02-17-2023 MRI of joint of lower extremity Start: 04-04-2022 Screening mammography Start: 03-19-2021 Ultrasonography of breast Start: 03-15-2021 Screening mammography Plan of Treatment Date Care Activity Detail Author Start: 01-24-2025 Screening for malign ant neoplasm of colon [facility] Start: 11-18-2024 End: 11-18-2024 Patient encounter procedure 11/18/2024 10:50 AM EDT Office Visit OB/Gynecology [address] [place] [address] Maylin Serrano MD [address] [place] [address] follow up OB/Gynecology Comment on above: follow up Start: 11-04-2024 End: 11-04-2024 Patient encounter procedure 11/04/2024 2:00 PM EDT Office Visit OB/Gynecology [address] [place] [address] Maylin Serrano MD [address] [place] [address] Endometrial thickening on ultrasound [ OB/Gynecology Comment on above: Endometrial thickeni ng on ultrasound [ Start: 10-21-2024 Influenza vaccination Influenza Vacc ine (#1) [facility] Start: 07-13-2024 Pelvic echography Pelvic w/ Transvag inal [facility] Start: 07-13-2024 US Pelvis [facility] Start: 07-03-2024 Amylase [Enzymatic activity/volume] in Serum or Plasma [facility] Start: 07-03-2024 CBC W Auto Different ial panel - Blood [facility] Start: 07-03-2024 Comprehensive metabo lic 2000 panel - Serum or Plasma [facility] Start: 07-03-2024 Triacylglycerol lipa se measurement [facility] Start: 01-04-2018 Pneumococcal Vaccine : 50+ (1 of 1 - PCV) Pneumococcal Vaccine: 50+ (1 of 1 - PCV) [facility] Start: 01-04-2018 Shingrix Vaccine (1 of 2) Espino grix Vaccine (1 of 2) [facility] Start: 01-04-2013 Diabetes Screening Diabetes Screenin g [facility] Start: 01-04-2013 Lipid panel Lipid Screening [facility] Start: 01-04-2013 Screening for malign ant neoplasm of colon [facility] Start: 2008 Screening for malign ant neoplasm of breast Mammogram Screening [facility] Start: 01-04-1989 Screening for malign ant neoplasm of cervix Cervical Cancer Screening [facility] Start: 01-04-1987 Hepatitis B Vaccine (1 of 3 - 19+ 3-dose series) Hepatitis B Vaccine (1 of 3 - 19+ 3-dose series) [facility] Start: 01-04-1987 Urine microalbumin profile DTa P,Tdap,Td Vaccine (1 - Tdap) [facility] Start: 01-04-1986 Anxiety Screening Anxiety Screening [facility] Start: 01-04-1986 Depression Screening Depression Scre ening [facility] Start: 01-04-1986 Hepatitis C screening Hepatitis C Sc ryan [facility] Start: 01-04-1986 HIV screening HIV Screening [facility] Alanine aminotransfe rase [Enzymatic activity/volume] in Serum or Plasma [facility] Albumin [Mass/volume ] in Serum or Plasma [facility] Alkaline phosphatase [Enzymatic activity/volume] in Serum or Plasma [facility] Anion gap in Serum o r Plasma [facility] Bilirubin, total measurement [facility] Bilirubin.direct [Mass/volume] in Serum or Plasma [facility] BUN/Creatinine ratio [facility] Calcium [Mass/volume ] in Serum or Plasma [facility] Carbon dioxide, tota l [Moles/volume] in Central venous blood [facility] Creatinine [Mass/vol ume] in Serum or Plasma [facility] CT Abdomen [facility] Endometrial bx w/wo endocervix bx w/o dilat spx ENDOMETRIAL BIOPSY Procedures Routine Endometrial thickening on ultrasound Ordered: 10/14/2024 [facility] Work Phone: Comment on above: Ordered: 10/14/2024 Erythrocyte mean corpuscular volume determination [facility] Glucose [Mass/volume ] in Serum or Plasma [facility] Hematocrit [Volume Fraction] of Blood [facility] Hemoglobin [Mass/vol ume] in Blood [facility] Leukocytes [#/volume ] in Blood [facility] Mean corpuscular hemoglobin concentration determination [facility] Mean corpuscular hemoglobin determination [facility] Measurement of renal function [facility] Neutrophil count [facility] Neutrophil percent differential count [facility] Platelets [#/volume] in Blood [facility] Potassium measurement [facility] Red blood cell count [facility] Red cell distributio n width determination [facility] Serum chloride measurement [facility] Sodium measurement [facility] Tissue Pathology bio psy report SURGICAL PATHOLOGY Lab Routine Endometrial thickening on ultrasound 11/04/2024 3:04 PM EDT [facility] Work Phone: Total protein measurement [facility] Urea nitrogen [Mass/volume] in Serum or Plasma [facility] US Pelvis [facility] Immunizations Immunization Date Immunization Notes Care Provider Deepika lezama 12-24-2018 influenza virus vacc ine, unspecified formulation Maylin Serrano MD Work Phone: [facility] Payers Date Payer Category Payer Unknown [id number] 2024 Self-pay [id number] 2021 [employer] [place] [employer] [facility] [employer] [facility] PPO [id number] 2015 Unknown [id number] Unknown [id number] Unknown [id number] Unknown [id number] Unknown [id number] Unknown [id number] Unknown [id number] Unknown [id number] Social History Date Type Detail Facility Start: 02-08-2018 End: 02-08-2018 Tobacco smoking status RIIS Unknown if ever smoked [facility] Start: 1970 Sex Assigned At Female [facility] Start: 07-20-2023 End: 10-14-2024 Tobacco smoking status NHIS Never smoked tobacco (finding) [facility] Start: 10-14-2024 Tobacco use and exposure Smoke less tobacco non-user [facility] Start: 10-14-2024 End: 11-04-2024 Alcoholic beverage intake Lifetime non-drinker (finding) [facility] Start: 10-14-2024 End: 11-04-2024 History of Social function [facility] Start: 10-14-2024 End: 11-04-2024 Tobacco use panel [facility] Start: 12-26-2017 National Score (1-10 0), lower number is lower risk 66 [facility] Start: 10-11-2021 Gender identity Identifies as female gender (finding) [facility] Start: 10-11-2021 Sexual orientation Choose not to dis close [facility] Clinical Notes 07-03-2024 to 11-18-2024 Maylin Serrano MD - 11/04/2024 2:35 PM EDTPatient InstructionsPatient InstructionsMaylin Serrano MD - 10/14/2024 2:23 PM EDT Note Date & Type Note Facility 11-18-2024 Note HNO ID: [id number] Author: MAYLIN SERRANO MD Service: ? Author Type: Physician Type: Progress Notes Filed: 11/18/2024 15:27 Note Text: Huan Allison is a 54 year old female who presents to discuss menopausal symptoms. HPI: Benign EMB. Scheduled to see GI in December for bloating and nausea. Hot flashes and joint pains are bothersome for her. Night sweats wake her up 3-4 times at night. Hot flashes several times a day. Interfering with sleep. Never feels rested which makes work day difficult. No known medical problems. Established with a PCP. OB History Gravida2 Para0 Term0 Preterm0 AB1 Living2 SAB1 IAB0 Ectopic0 Multiple1 Live Births0 Wool Cleaner History LMP: Perimenopausal Age at Menarche: 10 Age at First : Age at Menopause: Wool Cleaner History Comments: Sexual Activity: Yes; Male Contraception: None History reviewed. No pertinent past medical history. PAST SURGICAL HISTORY Procedure Laterality Date BREAST LUMPECTOMY HX Left benign REMOVAL OF OVARIAN CYST(S) FAMILY HISTORY Problem Relation Age of Onset Heart Father Breast Cancer Maternal Grandmother 80 - 89 Heart disease Maternal Grandmother Breast Cancer Maternal Aunt 70's SOCIAL HISTORY[1] Current Outpatient Medications Medication Sig estradiol (CLIMARA) 0.025 mg/24 hr patch Apply 1 patch as directed one time a week. progesterone micronized (PROMETRIUM) 100 mg capsule Take 1 capsule by mouth daily at bedtime. potassium chloride (K-TAB) 10 mEq tablet Take 10 mEq by mouth once daily. No current facility-administered medications for this visit. Allergies As of Date: 11/18/2024 (No Known Allergies) Fully Assessed 11/18/2024 REVIEW OF SYSTEMS Expanded ROS: N/A Allergies and current medication updated:Yes SENSITIVE EXAM: Sensitive exam not performed. EXAM: BP 124/72 Wt 166 lb (75.3kg) GENERAL: pleasant, female in no apparent distress CHEST: Normal inspiratory effort NEURO: exam grossly non-focal EXTREMITIES: normal ASSESSMENT AND PLAN: Assessment AND Plan Cyst of ovary, unspecified laterality Orders: PELVIC US [facility]; Future Encounter for screening mammogram for malignant neoplasm of breast Orders: IESHA SCREENING W MALLIKA; Future Hot flashes Orders: estradiol (CLIMARA) 0.025 mg/24 hr patch; Apply 1 patch as directed one time a week. progesterone micronized (PROMETRIUM) 100 mg capsule; Take 1 capsule by mouth daily at bedtime. Hot flashes due to menopause Night sweats Arthralgia, unspecified joint Patient interested in HRT. Discussed r/b/a HRT and she desires to start. Information given for her to review. Orders placed for estrogen patch and oral prometrium. Discussed reasons to call. To send message 1 month with response to HRT. Orders placed for screening mammogram and follow up pelvic US 12 months from last given ovarian cyst. Maylin Serrano DO Medical Decision Making: Problems: Moderate: New problem with uncertain prognosis Risk: Moderate: Drug management Medical Decision Making Level: 4 - Moderate [1] Social History Tobacco Use Smoking status: Never Smokeless tobacco: Never Vaping Use Vaping status: Never Used Substance Use Topics Alcohol use: Never Drug use: Never [facility] 11-04-2024 Note HNO ID: [id number] Author: MAYLIN SERRANO MD Service: ? Author Type: Physician Type: Progress Notes Filed: 11/04/2024 15:01 Note Text: Performance Test Consultant offered: Patient declinesEdward Pressley is a 54 year old Female who presents today for an endometrial biopsy for thickening of endometrial lining. test: n/a UNIVERSAL PROTOCOL / SAFETY CHECKLIST Procedure to be Performed: Endometrial Biopsy Sign In: A Moment of CARE was completed. Appropriate PPE (Personal Protective Equipment) worn by all providers involved with the procedure. Special equipment not required. Patient/Surrogate Stated/Verified: Patient name, Date of , Relevant allergies, and The intended procedure Time Out: Relevant labs, photos, and/or imaging studies have been reviewed. Intended patient and procedure match the source document(s) (e.g. consent, HANDP, associated studies [imaging, pathology]) match the intended patient and procedure. Consent obtained and matches the intended procedure. Yes. Correct side/site is not applicable. Medications required for this procedure are verified. Fire risk assessed and is not applicable. Implants: are not applicable. Sign Out: Specimens are all correctly labeled and sent. All instruments, equipment, possible retained foreign bodies are accounted for. Yes. The post-procedure plan of care has been communicated to the patient or surrogate. PROCEDURE: EXTERNAL GENITALIA: Normal in appearance without lesions VAGINA: Normal in appearance without lesions BIOPSY: Speculum placed into the vagina with excellent visualization of the cervix. Cervix cleaned with betadine. Anterior lip of cervix grasped with single toothed tenaculum. Uterus sounded to 9 cm. Pipelle inserted into the uterus without difficulty and endometrial biopsy obtained. Procedure Summary: Patient tolerated procedure well. ASSESSMENT: thickening of endometrial lining PLAN: Specimens labeled and sent to Pathology. Will notify patient of results in 1-2 weeks. Post-procedure instructions reviewed and written material given to the patient. Maylin Serrano DO [facility] 11-04-2024 History of Present illness Narrative Performance Test Consultant offered: Patient declines. Huan is a 54 year old Female who presents today for an endometrial biopsy for thickening of endometrial lining. test: n/a UNIVERSAL PROTOCOL / SAFETY CHECKLIST Procedure to be Performed: Endometrial Biopsy Sign In: A Moment of CARE was completed. Appropriate PPE (Personal Protective Equipment) worn by all providers involved with the procedure. Special equipment not required. Patient/Surrogate Stated/Verified: Patient name, Date of , Relevant allergies, and The intended procedure Time Out: Relevant labs, photos, and/or imaging studies have been reviewed. Intended patient and procedure match the source document(s) (e.g. consent, H&P, associated studies [imaging, pathology]) match the intended patient and procedure. Consent obtained and matches the intended procedure. Yes. Correct side/site is not applicable. Medications required for this procedure are verified. Fire risk assessed and is not applicable. Implants: are not applicable. Sign Out: Specimens are all correctly labeled and sent. All instruments, equipment, possible retained foreign bodies are accounted for. Yes. The post-procedure plan of care has been communicated to the patient or surrogate. PROCEDURE: EXTERNAL GENITALIA: Normal in appearance without lesions VAGINA: Normal in appearance without lesions BIOPSY: Speculum placed into the vagina with excellent visualization of the cervix. Cervix cleaned with betadine. Anterior lip of cervix grasped with single toothed tenaculum. Uterus sounded to 9 cm. Pipelle inserted into the uterus without difficulty and endometrial biopsy obtained. Procedure Summary: Patient tolerated procedure well. ASSESSMENT: thickening of endometrial lining PLAN: Specimens labeled and sent to Pathology. Will notify patient of results in 1-2 weeks. Post-procedure instructions reviewed and written material given to the patient. Maylin Serrano DO documented in this encounter [facility] 11-04-2024 Instructions Rima Lagunas MA - 11/04/2024 2:35 PM EDT Images from the original note were not included. Post-Procedure Instructions Endometrial Biopsy Instructions: You may experience irregular bleeding / spotting for up to a week after this procedure. Use a panty liner or pad instead of tampons for about one week. Avoid vaginal intercourse or putting anything in your vagina for about one week. Pain Control / Medications: Take 600 mg of ibuprofen (Advil, Motrin, etc.) or 1000 mg of acetaminophen (Tylenol) every 6 hours as needed for pain Do not take more than 2400 mg of ibuprofen or 4000 mg of acetaminophen in any 24 hour period You can also put a heating pad on your abdomen to help with pain. Call your provider's office if you: Have a fever greater than 100.4 F (38.0 C) Have very heavy bleeding (soaking 1 large pad an hour for 2 hours in a row) Prolonged vaginal bleeding for > 7 days following your procedure Have severe cramps that do not go away after you take ibuprofen or acetaminophen Have foul smelling vaginal discharge Follow-Up: Your specific follow up plan will depend on the results of the biopsy. Most biopsy results are available in 3 to 5 business days via [employer], unless a different method of communication was discussed today with your provider. documented in this encounter [facility] 10-14-2024 Instructions Maylin Serrano MD - 10/14/2024 3:38 PM EDT Non-Hormonal Ways to [place] with Hot Flashes and Menopause Hormone therapy is the most effective therapy for hot flashes. It is also the only FDA approved method to treat hot flashes. However, other non-hormonal options are available for women who are suffering from symptoms, but are not yet ready to consider hormone therapy. Some women are not appropriate candidates for hormone therapy, such as those have been recently treated for breast cancer, ovarian cancer, or endometrial/uterine cancer. It is important to remember that when used appropriately, hormone therapy can be a safe and effective option for many women. Here we will review non-hormonal treatment options for women. Knowing the triggers of hot flashes Hot flashes may be precipitated by hot weather, smoking, caffeine, spicy foods, alcohol, tight clothing, heat and stress. Identify and avoid your hot flash triggers. Some women notice hot flashes when they eat a lot of sugar. Exercising in warm temperatures might make hot flashes worse. Diet Avoiding caffeine, spicy foods, and alcohol can help lessen both the number and severity of hot flashes. Many women try to incorporate more plant estrogens into their diet. Plant estrogens, such as isoflavones, are thought to have weak estrogen-like effects that may reduce hot flashes. They may work in the body like a weak form of estrogen. Examples of plant estrogens include: soybeans, chickpeas, lentils, flaxseed, grains, beans, fruits, red clover and vegetables. In general, soybeans, chickpeas, and lentils are considered to have the most powerful plant estrogens, though their effect is much less than that of human estrogen. Try to choose natural foods rather than supplements. Also remember that only crushed or ground forms of flaxseed are likely to help (as compared to the whole seed or seed oil forms). What foods have high amounts of isoflavones Food Isoflavone Amount (Mg) In Food (100g) Soymilk 9.65 Soybeans, green, raw 151.17 Soy flour (textured) 148.61 148.61 Soybeans, dry roasted 128.35 Instant beverage soy, powder, not reconstituted 109.51 Miso soup mix, dry 60.39 Soybean chips 54.16 Tempeh, cooked 53.00 Soybean curd cheese 28.20 Tofu, silken 27.91 Tofu, yogurt 16.30 Source: USDA -- [facility] Database on the Isoflavone Content of Foods, 1998 Lifestyle changes Reducing the temperature in a room, dressing in layers, and the use of a fan while asleep can be effective ways to help deal with troublesome hot flashes. Women who are overweight tend to have more bothersome hot flashes, therefore weight loss can be helpful. Quitting smoking has a dual importance during menopause. First, smoking contributes to the increased cardiovascular risks of being postmenopausal. Second, smokers tend to experience more hot flashes. Women who lead a sedentary life seem to suffer more from hot flashes; however, it is best to exercise in a cooler environment. Try deep, slow abdominal breathing (6 to 8 breaths per minute). Practice deep breathing for 15 minutes in the morning, 15 minutes in the evening and at the onset of hot flashes. For some women, wearing socks to bed is helpful as it can help to cool core body temperature. Relieving insomnia Keep the bedroom cool to prevent night sweats. Avoid using sleeping pills. Exercise daily. Avoid caffeine and alcohol at night. Take a warm bath or shower at bedtime. Try milk products at bedtime or during the night (but avoid products that contain caffeine). Coping with mood swings, fears, and depression Find a self-calming skill to practice, such as yoga, meditation or slow, deep breathing. Avoid tranquilizers, if possible. Engage in a creative outlet that fosters a sense of achievement. Stay connected with your family and community; nurture your friendships. Relieving painful intercourse Try using a vaginal water-based moisturizing lotion or lubricant during intercourse. These are sold without a prescription near the condoms in most stores. Common names include-Astroglide and [place] liquid . Avoid Vaseline , as it may lead to yeast infections. Prescription and nonprescription remedies A number of non-hormonal remedies are available for the treatment of hot flashes. Some of these remedies (e.g., black cohosh and soy products) are available [id number] but are not FDA-approved. Some prescription medications are used off label to help reduce hot flashes. Using a product off label means that it is not FDA approved for the treatment of hot flashes, but is often used because it can be safe and effective for hot flash treatment.(considered the more effective non-hormonal treatments): Drug Side Effect Effectiveness venlafaxine (Effexor ) Nausea, change in bowel habits, headache (temporary side effects for most). Elevated blood pressure (at high doses) Effectiveness has been proven in several well-designed studies. One of the safer medications for women taking tamoxifen (no drug interaction). desvenlafaxine (Pristiq ) Similar to venlafaxine. Nausea, change in bowel habits, headache (temporary side effects for most). Elevated blood pressure (at high doses) Improvement in hot flashes compared to placebo has been shown. Newer med compared to venlafaxine, so a smaller number of studies are available. fluoxetine (Prozac ) Nausea, change in bowel habits, decreased libido, insomnia. Should be avoided in women taking tamoxifen. Improvement in hot flashes has been shown in well-designed studies. paroxetine (Paxil ) Nausea, change in bowel habits, decreased libido, dry mouth, weight gain (not common) Should be avoided in women taking tamoxifen. eTends to be more effective for sleep in women who are also suffering with insomnia. Improvement in hot flashes has been shown in well-designed studies. scitalopram (Lexapro ) Nausea, change in bowel habits, decreased libido, abnormal EKG (not common) Improvement in hot flashes has been shown in well-designed studies. Gabapentin (Neurontin ) Fatigue, dizziness, nausea, disorientation, swelling, weight gain Tends to be more effective for sleep in women who are also suffering with insomnia. Clonidine (Catapres ) Dry mouth, drowsiness, fatigue, constipation, lowers blood pressure Relieved hot flashes in some, but not all studies.Less commonly used than some of the other options. Non-prescription, herbal, [id number] therapies: Drug Side Effects Effectiveness Evening [place] Oil Nausea, diarrhea, headache. Only one well-designed study showing not effective. Black cohosh Mild stomach upset. Safe up to 6 months only due to possible estrogen-like effects. Liver toxicity has been reported. Some small, short-term studies have suggested benefits, however most studies do not suggest that it works. Soy (plant estrogen) Also referred to as phytoestrogens. Appears safe if consumed in foods. In supplement form, consistency of dose and quality can be a concern. Supplements are not recommended for breast cancer survivors For the most part, results from clinical studies show that phytoestrogens are not effective for treatment of hot flashes. Acupuncture Uncomfortable for some, often costly. Generally well-tolerated, but multiple visits required Individual trials have reported some benefits, but larger studies have not shown any improvement over placebo procedures. However some women do report benefits with this, so it is possible that more well-designed studies are needed to answer this question. Vitamin E 13% increase risk of heart failure. Might increase rate in those who use high doses for a long time. A higher risk of prostate cancer has also been shown, but applies only to men. One study showing effective. However the improvement seen in this was only one less hot flash per day compared to placebo. Are the [id number] herbal products (botanicals) safe? While safe when taken in moderate amounts through diet, the consumption of extraordinary amounts of soy and isoflavone supplements may be harmful to women with a history of estrogen-dependent cancer, like breast cancer, and possibly to other women as well. More research is needed to determine the safety and effectiveness of botanical treatments. For example, Ginseng, [place], Wild yam, Progesterone cream, reflexology, and magnetic devices are sold to help menopausal symptoms, but there are no good studies looking at their safety or effectiveness. To make an informed decision about the use of these treatments, be sure to discuss them with your doctor. Because little is known about many botanicals, the best way to evaluate their safety and effectiveness is to become an educated consumer. Here are some tips to consider when shopping for alternative therapies. Ask yourself the following questions: What is the treatment? What does it involve? How does it work? Why does it work? Are there any risks? What are the side effects? Is it effective? (Ask for evidence or proof) How much does it cost? Once you answer these questions, discuss the therapy with your doctor. Make sure your doctor knows what therapy you are considering in order to discuss possible interactions or side effects with your current treatment. What are warning signs that a product may not be legitimate? When trying to determine whether or not a product is what it says it is, one of the elements you may want to look at is how the product is promoted. Be cautious of products promoted through: [employer] Direct mailings [employer] Ads disguised as valid news articles Ads in the back of magazines Additional red flags to look for include: Big claims: If products claim to be a cure for your condition, or gives outrageous claims, be cautious. Source: Be wary if the product is only offered through one mobile lounge driver or operator or purchased only through a health care provider s office. Ingredients: Make sure all of the active ingredients are listed, and don t trust secret formulas. Testimonials: Remember that only people who are satisfied with a product give testimonials and that they may be getting paid for their endorsement References: National Center for Complementary and Alternative Medicine. Vitamin E. nccam.nih.gov Assessed May 21, 2012 Katie Polanco et al. meta-analysis: High Dosage Vitamin E. Supplementation Might Increase All Cause Mortality. Annals of Internal Medicine February 24, 2004. annals.org National Center for Complementary and Alternative Medicine. Menopausal Symptoms and CAM. nccam.nih.gov Accessed May 21, 2012 [place] [employer], Hormone Therapy for women in 2012. www.menopause.org Assessed May 21, 2012 [place] [employer]. Publications. The Menopause Years. www.acog.org Accessed 04/19/2010 Centers for Disease Control and Prevention. Women s Reproductive Health: Menopause. www.cdc.gov Accessed 04/19/2010 National [place] [employer] A[employer]. Age Page: Menopause. www.laura.nih.gov Accessed 04/19/2010 Hormone Therapy* (HT): Understanding Benefits and Risks (*Sometimes also called hormone replacement therapy, HRT) What are estrogen and progesterone? Estrogen and progesterone are hormones that are produced by a woman's ovaries. Why does the body need estrogen? Estrogen thickens the lining of the uterus, preparing it for the possible implantation of a fertilized egg. Estrogen also influences how the body uses calcium, an important mineral in the building of bones. In addition, estrogen helps maintain healthy levels of cholesterol in the blood. Estrogen is necessary in keeping the vagina healthy. As menopause nears, the ovaries reduce most of their production of these hormones. Lowered or fluctuating estrogen levels may cause menopause symptoms such as hot flashes, and medical conditions such as osteoporosis. What is hormone therapy (HT)? Hormone therapy (HT) is a treatment that is used to supplement the body with either estrogen alone or estrogen and progesterone in combination. When the ovaries no longer produce adequate amounts of these hormones (as in menopause), HT can be given to supplement the body with adequate levels of estrogen and progesterone. HT helps to replenish the estrogen, relieving some of the symptoms of menopause and helping to prevent osteoporosis. Why is progesterone taken? Progesterone is used along with estrogen in women who still have their uterus. In these women, estrogen-- if taken without progesterone--increases a woman's risk for cancer of the endometrium (the lining of the uterus). During a woman's reproductive years, cells from the endometrium are shed during menstruation. When the endometrium is no longer shed, estrogen can cause an overgrowth of cells in the uterus, a condition that can lead to cancer. Progesterone reduces the risk of endometrial (uterine) cancer by making the endometrium thin. Women who take progesterone may have monthly bleeding, or no bleeding at all, depending on how the hormone therapy is taken. Monthly bleeding can be lessened and, in some cases, eliminated by taking progesterone and estrogen together continuously. Women who have had a hysterectomy (removal of the uterus through surgery) usually do not need to take progesterone. This is an important point, because estrogen taken alone has fewer long-term risks than HT that uses a combination of estrogen and progesterone. What are the types of HT? There are two main types of HT: Estrogen Therapy (ET): Estrogen is taken alone. Doctors most often prescribe a low dose of estrogen to be taken as a pill or patch every day. Estrogen may also be prescribed as a cream, vaginal ring, gel or spray. You should take the lowest dose of estrogen needed to relieve menopause symptoms and/or to prevent osteoporosis. This type of HT is used if a woman has had a hysterectomy. Estrogen Progesterone/Progestin Hormone Therapy (EPT): Also called combination therapy, this form of HT combines doses of estrogen and progesterone (progestin is a synthetic form of progesterone). This type of HT is used if a woman still has her uterus. What are the benefits of taking HT? HT is prescribed to relieve: Hot flashes Vaginal dryness that can result in painful intercourse Other problematic symptoms of menopause, such as night sweats and dry, itchy skin Other benefits of taking HT include: Reduced risk of developing osteoporosis and reduced risk of bone breakage Improvement of mood and overall sense of mental well-being in some women Decreased tooth loss Lowered risk of colon cancer Lowered risk of diabetes Modest improvement in joint pains Lower rate for women who take hormone therapy in their 50s. What are the risks of taking HT? While HT helps many women get through menopause, the treatment (like any prescription or even non-prescription medicines) is not risk-free. Known health risks include: An increased risk of endometrial cancer (only if a woman still has her uterus and is not taking a progestin along with estrogen). Increased risk of blood clots and stroke. However, in women within 5 years of menopause there was no statistically significant increase in stroke risk. Also, studies suggest that using estrogen delivered from the skin via a patch/cream might further lessen the risk of blood clots. Increased chance of gallbladder/gallstone problems. Increased risk of dementia if hormone therapy is started after a woman has been in menopause for 10 years. It is not yet known if it might be beneficial for women who start HT in their 50s. Most of our understanding about the benefits and risks of hormone therapy on the heart and breast come from the Women s Health Initiative (WHI) study (one of the largest studies done on hormone therapy): HT and the heart Recent analysis of WHI actually shows that the risk of heart disease may be related more to the advanced age of the participants as opposed to the HT. The study also found that HT given to younger women, at the onset of menopause, appeared to decrease the risk of heart disease. More specifically: An increased risk of heart disease is only seen in women taking long-term estrogen-progestin combination therapy (EPT) if they start HT in their mid-60s. There does not seem to be an increased risk of heart disease when women in their 50s start EPT. Estrogen alone (ET) has not been shown to increase the risk of heart disease. Analysis of the age since menopause actually shows a decrease in the risk of heart disease when ET was started in younger women (those just beginning menopause). Currently, it is not recommended to use hormone therapy solely for the purpose of preventing heart disease. However these studies give us reassurance that when women just newly approaching menopause need HT for a short time, it is safe to do so in terms of jail heart disease risk. HT and breast cancer Diagnosis of breast cancer increases when combination EPT is used beyond 3-5 years. This means that out of 10,000 women who use estrogen progestin therapy for more than 5 years, there will be 8 additional breast cancers diagnosed. In contrast, the WHI study showed women who use estrogen alone had no increase in risk of breast cancer even after 11 years of use. In fact, fewer breast cancers were seen in the group taking estrogen alone, though this was not statistically significant. When a woman comes off of hormone therapy, any potential increase in her risk of breast cancer quickly goes back to her baseline norm. This is why hormone therapy can be a safe option when women in their 50s (who are generally at lower risk for breast cancer compared to older women). Does starting HT closer to the time of menopause make it safer? One of the problems with the WHI study, which gave us much of our knowledge on the risks of HT, is that most women in the study were starting hormones in their mid-60s. Typically, women who need HT are newly menopausal, in their early 50s. Younger women in the WHI study had fewer risks and more benefits from HT. Newer studies are trying to understand the risks and benefits of HT in women in their 50s. One such study showed HT started early in postmenopausal women significantly reduced rate, heart attacks and heart failure. These postmenopausal women who started HT early and used it for more than 10 years were not at increased risk of breast cancer or stroke. What are some commonly used postmenopausal hormones? The following charts list the names of some, but not all, postmenopausal hormones. Types Brand Names Vaginal Tablet Vagifem Estrogen Pills Cenestin , Estinyl , Estrace , Menest , Ogen , Premarin , Femtrace Cream Estrace , Ogen , Premarin Vaginal Ring Estring , Femring Patch Sherie , Climara , Minivelle , Estraderm , Vivelle , Vivelle-Dot , Menostar Progestin Types Brand Names Pills/Capsules Amen , Aygestin , Curretab , Cycrin , Megace , Prometrium , Provera Vaginal Gel Prochieve progesterone gel 4%, 8% Combination types Brand Names Pills Activella , FemHRT , Premphase , Prempro , Angeliq Patchs CombiPatch , Climara-Pro Who shouldn't take HT? HT is not usually recommended for women who have: Active or past breast cancer Recurrent or active endometrial cancer Abnormal vaginal bleeding that has not been evaluated Recurrent or active blood clots History of stroke Liver disease Known or suspected What are the side effects of HT? Like almost all medications, hormone therapy has side effects. The most common side effects are: Monthly bleeding (if progestin given cyclical) Irregular spotting Breast tenderness Less common side effects of hormone therapy include: Fluid retention Headaches (including migraine) Skin discoloration (brown or black spots) Increased breast density making mammogram interpretation more difficult Skin irritation under estrogen patch How can I reduce these side effects? Adjusting either the dosage or the form of the medication you are taking can often reduce side effects of HT. However, you should never make changes in your medication or stop taking it without first consulting your doctor. How can I know if HT is right for me? The balance of risks versus benefits of HT can be very different for each woman, depending on her age, family history, and personal medical history. It is important to allow enough time at an office visit to discuss the risks and benefits of hormone therapy. This is a question that should usually be addressed at a separate office visit to allow plenty of time for detailed discussion with your doctor. How long should I take HT? Since research on HT is ongoing, women should reevaluate their treatment plans each year. Discontinue HT (under your health care provider's guidance) if you develop a medical condition that would make it less safe for you. Based on the WHI study results, should I stop taking HT? It's important that you do not make any abrupt changes to your HT without consulting your doctor. He or she can discuss with you the benefits and risks of HT based on your individual circumstances. First, the therapy should not be continued or started to prevent heart disease. Women should consult their doctor about other methods of prevention, such as lifestyle changes, and cholesterol- and blood pressure-lowering drugs. Second, for osteoporosis prevention, women should consult their doctor and weigh the benefits against their personal risks. Alternate treatments also are available to prevent osteoporosis and fractures. Finally, women taking HT for relief of menopausal symptoms may reap more benefits than risks. Women should talk with their doctor about their personal risks and benefits. References: Effect of Hormone Replacement Therapy on Cardiovascular Events in Recently Postmenopausal Women: Randomized Trial. BMJ Nov 2011. [place] [employer]. The 2012 hormone therapy position statement Accessed 07/19/12. [place] [employer]ocrin[employer]. [place] [employer]ocrin[employer] Medical Guidelines for the Clinical Practice for the Diagnosis and Treatment of Menopause Accessed 08/12/12. Committee on Gynecological Practice. Postmenopausal estrogen therapy: Route of administration and risk of venous thromboembolism. Obstet Gynecol 2013 May; 121:887. Estrogen alone and joint symptoms in the Women's Health Initiative randomized trial. Menopause 2012May 07. documented in this encounter [facility] 10-14-2024 Note HNO ID: [id number] Author: MAYLIN SERRANO MD Service: ? Author Type: Physician Type: Progress Notes Filed: 10/14/2024 17:54 Note Text: Huan Allison is a 54 year old female who presents as a new patient for a second opinion. HPI: She states she was having abdominal fullness and bloating that prompted an ultrasound to be ordered. An outside office recommended an EMB due to endometrial thickening, and a referral to GI for bloating. She would like to know if she needs an endometrial biopsy. She feels her abdomen is bloating and full. She started taking a green super food and BM's have become more regular, which has improved the bloating somewhat. Feels full at the end of the day, which is uncomfortable for her. Feels she has increased flatus with water intake. She had reduced her water intake due to bloating. She is going to the gym 3 days a week. Has been having hot flashes, night sweats, pain with intercourse, and brain fog. Completed Cologuard through PCP. Has never had colonoscopy. Had IUD inserted in 01/2019 and removed 01/2024. Has had no bleeding since the IUD removal. OB History Gravida2 Para0 Term0 Preterm0 AB1 Living2 SAB1 IAB0 Ectopic0 Multiple1 Live Births0 Wool Cleaner History LMP: Perimenopausal Age at Menarche: 10 Age at First : Age at Menopause: Wool Cleaner History Comments: Sexual Activity: Yes; Male Contraception: None History reviewed. No pertinent past medical history. PAST SURGICAL HISTORY Procedure Laterality Date BREAST LUMPECTOMY HX Left benign REMOVAL OF OVARIAN CYST(S) No family history on file. SOCIAL HISTORY[1] Current Outpatient Medications Medication Sig potassium chloride (K-TAB) 10 mEq tablet Take 10 mEq by mouth once daily. No current facility-administered medications for this visit. Allergies As of Date: 10/14/2024 (No Known Allergies) Fully Assessed 10/14/2024 REVIEW OF SYSTEMS Expanded ROS: N/A Allergies and current medication updated:Yes SENSITIVE EXAM: Sensitive exam not performed. EXAM: BP 138/88 Ht 5' 3 (1.60m) Wt 166 lb 12.8 oz (75.7kg) BMI 29.55 kg/(m2). GENERAL: pleasant, female in no apparent distress HEENT: Normocephalic and atraumatic NECK: full range of motion CHEST: Normal inspiratory effort NEURO: exam grossly non-focal EXTREMITIES: normal ASSESSMENT AND PLAN: Assessment AND Plan Endometrial thickening on ultrasound Orders: ENDOMETRIAL BIOPSY Abdominal bloating Orders: CONSULT TO GASTROENTEROLOGY; Future Abdominal fullness Orders: CONSULT TO GASTROENTEROLOGY; Future Cyst of ovary, unspecified laterality Hot flashes Night sweats Reviewed pelvic ultrasound findings in detail with patient and questions answered. 2 cm ovarian cyst that was previously 1.5 cm one year prior. Discussed most likely benign but recommend yearly pelvic US follow up. Seems unlikely to be causing bloating given size. Previous office recommended EMB and GI referral, and she is here for a second opinion prior to proceeding with this. Given thickened endometrium discussed cannot rule out pathology. Discussed r/b/a EMB and patient would like to proceed. Order placed. Briefly discussed HRT and information given on non hormonal and hormonal treatment options for menopause for her to review. Would want EMB completed prior to starting any HRT. Agree with GI referral given symptoms. RTO for EMB. Maylin Serrano, Medical Decision Making: Problems: Moderate: New problem with uncertain prognosis Data: Unique test(s) ordered: 2 Independent interpretation of test from other physician/QHCP Risk: Minimal: Minimal risk from testing/treatment Medical Decision Making Level: 4 - Moderate [1] Social History Tobacco Use Smoking status: Never Smokeless tobacco: Never Vaping Use Vaping status: Never Used Substance Use Topics Alcohol use: Never Drug use: Never [facility] 10-14-2024 History of Present illness Narrative Huan Allison is a 54 year old female who presents as a new patient for a second opinion. HPI: She states she was having abdominal fullness and bloating that prompted an ultrasound to be ordered. An outside office recommended an EMB due to endometrial thickening, and a referral to GI for bloating. She would like to know if she needs an endometrial biopsy. She feels her abdomen is bloating and full. She started taking a green super food and BM's have become more regular, which has improved the bloating somewhat. Feels full at the end of the day, which is uncomfortable for her. Feels she has increased flatus with water intake. She had reduced her water intake due to bloating. She is going to the gym 3 days a week. Has been having hot flashes, night sweats, pain with intercourse, and brain fog. Completed Cologuard through PCP. Has never had colonoscopy. Had IUD inserted in 01/2019 and removed 01/2024. Has had no bleeding since the IUD removal. OB History Gravida2 Para0 Term0 Preterm0 AB1 Living2 SAB1 IAB0 Ectopic0 Multiple1 Live Births0 Wool Cleaner History LMP: Perimenopausal Age at Menarche: 10 Age at First : Age at Menopause: Wool Cleaner History Comments: Sexual Activity: Yes; Male Contraception: None History reviewed. No pertinent past medical history. PAST SURGICAL HISTORY Procedure Laterality Date BREAST LUMPECTOMY HX Left benign REMOVAL OF OVARIAN CYST(S) No family history on file. SOCIAL HISTORY[1] Current Outpatient Medications Medication Sig potassium chloride (K-TAB) 10 mEq tablet Take 10 mEq by mouth once daily. No current facility-administered medications for this visit. Allergies As of Date: 10/14/2024 (No Known Allergies) Fully Assessed 10/14/2024 REVIEW OF SYSTEMS Expanded ROS: N/A Allergies and current medication updated:Yes SENSITIVE EXAM: Sensitive exam not performed. EXAM: BP 138/88 Ht 5' 3 (1.60m) Wt 166 lb 12.8 oz (75.7kg) BMI 29.55 kg/(m^2). GENERAL: pleasant, female in no apparent distress HEENT: Normocephalic and atraumatic NECK: full range of motion CHEST: Normal inspiratory effort NEURO: exam grossly non-focal EXTREMITIES: normal ASSESSMENT AND PLAN: Assessment & Plan Endometrial thickening on ultrasound Orders: ENDOMETRIAL BIOPSY Abdominal bloating Orders: CONSULT TO GASTROENTEROLOGY; Future Abdominal fullness Orders: CONSULT TO GASTROENTEROLOGY; Future Cyst of ovary, unspecified laterality Hot flashes Night sweats Reviewed pelvic ultrasound findings in detail with patient and questions answered. 2 cm ovarian cyst that was previously 1.5 cm one year prior. Discussed most likely benign but recommend yearly pelvic US follow up. Seems unlikely to be causing bloating given size. Previous office recommended EMB and GI referral, and she is here for a second opinion prior to proceeding with this. Given thickened endometrium discussed cannot rule out pathology. Discussed r/b/a EMB and patient would like to proceed. Order placed. Briefly discussed HRT and information given on non hormonal and hormonal treatment options for menopause for her to review. Would want EMB completed prior to starting any HRT. Agree with GI referral given symptoms. RTO for EMB. Maylin Serrano, Medical Decision Making: Problems: Moderate: New problem with uncertain prognosis Data: Unique test(s) ordered: 2 Independent interpretation of test from other physician/QHCP Risk: Minimal: Minimal risk from testing/treatment Medical Decision Making Level: 4 - Moderate [1] Social History Tobacco Use Smoking status: Never Smokeless tobacco: Never Vaping Use Vaping status: Never Used Substance Use Topics Alcohol use: Never Drug use: Never documented in this encounter [facility] 07-16-2024 Radiology Diagnostic study note [facility] Imaging Services [address] [place] [id number] Pelvic w/ Transvaginal MR#: [id number] Acct: [id number] Name: HUAN ALLISON Rep #: [id number] : 1970 F 54 From: Kiko Corbett MD PCP: Dr. Thierry Wan MD Status: REG C JIMMY Study:Pelvic w/ Transvaginal Date of Exam: 07/13/24 Exam# [id number] Ordering Dr: Adriana Coffman PROCEDURE: PELVIC W/ TRANSVAGINAL 07/13/2024 REASON FOR EXAM: PELVIC PAIN TECHNIQUE: Transabdominal pelvic ultrasound COMPARISON: None FINDINGS: Measurements: Uterus: 11.6 cm x 4.6 cm x 4 cm with a volume of 113 mL Endometrial Thickness: 11.4 mm Right Ovary: 3.2 cm x 2.2 cm x 2.3 cm with a volume of 8.62 mL. Left Ovary: 2.9 cm x 1.5 cm x 1.8 cm with a volume of 4.12 mL. Uterus: There are 2 small calcified fibroids. Endometrium: Endometrium is thickened for the postmenopausal state. Nabothian cyst. Right ovary: 2 cm x 2 cm x 1.9 cm right ovarian cyst. Left ovary: Normal size and echotexture. Other: No large pelvic mass identified. US/Pelvic w/ Transvaginal IMPRESSION: Fibroid uterus. Endometrial thickening. 2 cm x 2 cm x 1.9 cm right ovarian cyst. 2 small uterine fibroids. [facility] CC: KHUSHBOO Coffman; Dr. 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 Thierry Wan MD Status: PEPE MARQUEZ Study:Abdomen Complete Date of Exam: Exam# [id number] Ordering Dr: Adriana Coffman POWDER COAT PAINTER-Lesli EXAM: US Abdomen Complete CLINICAL INDICATION: ABDOMINAL PAIN TECHNIQUE: Real-time ultrasound of the abdomen with image documentation. COMPARISON: No relevant prior studies available. FINDINGS: LIVER: Liver measures up to 14.7 cm. Fatty infiltration of the liver. No intrahepatic bile duct dilation. GALLBLADDER: Unremarkable. No gallstones. COMMON BILE DUCT: Unremarkable as visualized. No stones. No dilation. Commonbile duct measures 0.36 cm in diameter. PANCREAS: Unremarkable as visualized. KIDNEYS: Echogenic kidney could be fatty infiltration. No stones. No hydronephrosis. The right kidney measures 11.7 x 5.6 x 4.7 cm. The left kidney measures 11.1 x 4.7 x 5.6 cm. SPLEEN: Spleen measures up to 10.6 cm. AORTA: Unremarkable. No aneurysm. INFERIOR VENA CAVA: Unremarkable. US/Abdomen Complete IMPRESSION: Fatty infiltration of the liver. Reading Location: [facility] CC: KHUSHBOO Coffman; Dr. 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: Signed [facility] 07-03-2024 Evaluation note Diagnosis Onset Date Resolution Pelvic pain acute July 03 9:39am Right upper quadrant pain acute July 03, 2024 9:39am Encounter for routine gynecological examination noneactive July 03, 2024 9:39am [facility] Work Phone: Evaluation noteNo assessment information available [facility] Work Phone: Evaluation note* Diagnosis Onset Date Resolution Status Admit Date Encounter for routine gynecological examination noneactive July 032024 9:39am [facility] Work Phone: Evaluation note* Diagnosis Endometrial thickening on ultrasound- Primary Abdominal bloating Flatulence, eructation, and gas pain Abdominal fullness Other symptoms involving abdomen and pelvis Cyst of ovary, unspecified laterality Hot flashes Symptomatic menopausal or female climacteric states Night sweats Generalized hyperhidrosis [facility] Endometrial thickening on ultrasound- Primary [facility] ([facility])No reason for referral information availableLittle [place] [facility] [employer] [facility] Work Phone: Summary Purpose Family History No Family History Records Found Relationship Condition Age at Onset Recorded Date/T taiwo father Hypertension Unknown High blood cholesterol Unknown mother High blood cholesterol Unknown Hypertension Unknown Relationship Condition Age at Onset Recorded Date/T taiwo father Hypertension Unknown High blood cholesterol Unknown Neuropathy Unknown mother High blood cholesterol Unknown Hypertension Unknown Advance Directives No Advanced Directives Records FoundNo Advanced Directives Records FoundNo Advanced Directives Records Found Chief Complaint and Reason for Visit Chief Complaint Admit Date Annual (MANAGER BOOK) July 03, 2024 9:39a m Reason for Visit Admit Date Pelvic pain July 03, 2024 9:39a m Right upper quadrant pain July 03, 2024 9:39am Encounter for routine gynecological exam ination July 03, 2024 9:39am Chief Complaint SCREENING RT ABN MAMM Chief Complaint CALCIFIC TENDONITIS LEFT SHOULDER. RX HERE Chief Complaint CALCIFIC TENDONITIS LEFT SHOULDER. 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 (MANAGER BOOK) July 03, 2024 9:39a m ABD PAIN July 12, 2024 7:16a m PELVIC PAIN July 13, 2024 8:38a m SCREENING July 22, 2024 2:09p m Additional Source Comments INFORMATION SOURCE (unrecogn ized section and content) DATE CREATED AUTHOR 08/11/2017 [facility] ([place]) DATE CREATED AUTHOR AUTHOR'S ORGANIZ ATION 11/24/2024 [facility] DATE CREATED AUTHOR AUTHOR'S ORGANIZ ATION 12/21/2024 [facility] Goals (unrecognized section and content) Goals may be documented in a n alternate sectionGoals may be documented in an alternate sectionGoals may be documented in an alternate sectionGoals may be documented in an alternate sectionGoals may be documented in an alternate sectionGoals may be documented in an alternate sectionGoals may be documented in an alternate sectionGoals may be documented in an alternate sectionGoals may be documented in an alternate sectionGoals may be documented in an alternate sectionGoals may be documented in an alternate sectionGoals may be documented in an alternate sectionGoals may be documented in an alternate sectionGoals may be documented in an alternate section Care Teams (unrecognized sec tion and content) Team Status: Active Member Role Status Dates Dr. Thierry Wan MD Family Provider Active Dr. Thierry Wan MD Primary Care Provider Active Team Status: Inactive Member Role Status Dates Dr. Thierry Wan MD Primary Care Provider Active Dr. Michael Gillespie DPM Attending Provider, Referrin g Provider Active Team Status: Inactive Member Role Status Dates Dr. Thierry Wan MD Primary Care Provider, Attending Provider Active Team Status: Inactive Member Role Status Dates Dr. Thierry Wan MD Primary Care Provider Active Dr. Ricci Polanco MD Attending Provider, Referring Pr ovider Active Team Status: Inactive Member Role Status Dates Dr. Thierry Wan MD Primary Care Provider Active Start: July 03, 2024 End: July 03, 2024 Dr. Thierry Wan MD Referring Provider Active Start: July 03, 2024 End: July 03, 2024 KHUSHBOO Donovan Attending Provider Active Start: July 03, 2024 End: July 03, 2024 Team Status: Active Member Role Status Dates Dr. Thierry Wan MD Primary Care Provider Active Start: July 03, 2024 KHUSHBOO Donovan Attending Provider Active Start: July 03, 2024 KHUSHBOO Donovan Referring Provider Active Start: July 03, 2024 Team Status: Active Member Role Status Dates Dr. Thierry Wan MD Primary Care Provider Active Team Status: Inactive Member Role Status Dates Dr. Thierry Wan MD Primary Care Provider Active Start: July 03, 2024 End: July 03, 2024 Adriana Barkman , POWDER COAT PAINTER-C Attending Provider Active Start: July 03, 2024 End: July 03, 2024 Adriana Coffman NP-C Referring Provider Active Start: July 03, 2024 End: July 03, 2024 Team Status: Inactive Member Role Status Dates Dr. Thierry Wan MD Primary Care Provider Active Start: July 12, 2024 End: July 12, 2024 Adriana Coffman POWDER COAT PAINTER-C Attending Provider Active Start: July 12, 2024 End: July 12, 2024 Adriana Coffman POWDER COAT PAINTER-C Referring Provider Active Start: July 12, 2024 End: July 12, 2024 Team Status: Active Member Role Status Dates Dr. Thierry Wan MD Primary Care Provider Active Start: July 13, 2024 Adriana Coffman NP-C Attending Provider Active Start: July 13, 2024 Adriana Coffman NP-C Referring Provider Active Start: July 13, 2024 Team Status: Inactive Member Role Status Dates Dr. Thierry Wan MD Primary Care Provider Active Start: July 13, 2024 End: July 13, 2024 Adriana Coffman NP-C Attending Provider Active Start: July 13, 2024 End: July 13, 2024 Adriana Coffman NP-C Referring Provider Active Start: July 13, 2024 End: July 13, 2024 Team Status: Inactive Member Role Status Dates Dr. Thierry Wan MD Primary Care Provider Active Start: July 22, 2024 End: July 22, 2024 Adriana Coffman NP-C Attending Provider Active Start: July 22, 2024 End: July 22, 2024 Adriana Coffman NP-C Referring Provider Active Start: July 22, 2024 End: July 22, 2024 Source Comments (unrecognize d section and content) In the event this informatio n is protected by the Federal Confidentiality of Alcohol and Drug Abuse Patient Records regulations: The Federal rules restrict any use of the information to criminally investigate or prosecute any alcohol or drug abuse patient.[facility] the event this information is protected by the Federal Confidentiality of Alcohol and Drug Abuse Patient Records regulations: The Federal rules restrict any use of the information to criminally investigate or prosecute any alcohol or drug abuse patient.[facility] Reason for Visit (unrecogniz ed section and content) Reason Comments New Patient Second opinion and d iscuss menopause Reason Comments Endometrial Biopsy Specialty Diagnoses / Procedures Referred By Priscilla t Referred To Contact [facility] Diagnoses Endometrial thickening on ultrasound Procedures ENDOMETRIAL BIOPSY ENDOMETRIAL BX W/WO ENDOCERVIX BX W/O DILAT SPX Maylin Serrano MD [address] [place] [address] Phone: tel: fax: [facility] [address] [place] [address] Referral ID Status Reason Start Date Expiration Date V isits Requested Visits Authorized [id number] Closed Auto-Generate d Referral 10/14/2024 10/14/2025 1 1 FOR RECORDS PERTAINING TO PATIENTS WHO ARE [...] BE BASED ON THE PRIMARY CLINICAL RECORDS. [employer] provides no warranty or guarantee of the accuracy or completeness of information in this document.
[2025-02-11] MEDS: Lactated Ringers 1,000 ML 15 ML IV (06:15)
--- NOTE | 2025-02-11 06:28 | PCM.HP.STD ---
HPI - General General Date of Admission: 02/11/25 Date of Service: 02/11/25 Chief Complaint: abdominal pain HPI Narrative VARSHA ALLISON, is a 55 F who presents [ Chief Complaint: Abdominal bloating & discomfort, often triggered by drinking water at work She has symptoms of abdominal bloating with audible stomach pinging noted at work, present since at least spring and occurring on some mornings. Bloating progresses through the day and results in significant discomfort by evening. Reports symptoms are less noticeable on weekends and suspects stress may contribute. Began estrogen patch and oral progesterone three weeks ago for hot flashes with symptomatic improvement in hot flashes but no change in bloating. Drinks water at work; some days water seems to trigger bloating and noise, other days it does not. Typical morning intake includes oatmeal with blueberries and a small amount of maple syrup. When water worsens symptoms, intake is reduced despite thirst. Has tried lemon juice without benefit. 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 Reports chronic stiffness and achiness, especially after prolonged sitting; chiropractor has suggested possible fibromyalgia (not diagnosed). Exercises at the gym three days per week; primarily weight lifting due to ankle limitations; overall feels well except for persistent bloating. Has completed Cologuard once or twice and planned to repeat this year, but will wait given plan for colonoscopy. 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; prior left ankle injury; ongoing symptoms with overuse - Chronic stiffness and achiness; chiropractor suggested possible fibromyalgia (not diagnosed) - [Unclear] Stress-related symptom exacerbation (reports less bloating on weekends) [facility] Medical History Wears glasses Post-menopausal Cancer Injury of head and neck Non-smoker History of edema Skin cancer Hepatitis-C Breast lump Back problem Cyst of breast, left, solitary History of back problems Arthritis Abnormal mammogram of left breast Home Medications ?Medication ?Instructions ?Recorded ?Last Taken ?Type estradiol 0.025 mg/24 hr 1 patch transdermal .WK 01/13/25 02/10/25 History semiweekly transdermal patch (Vivelle-Dot) multivitamin 1 tab PO QAM 01/13/25 02/10/25 History potassium citrate 10 mEq (1,080 10 meq PO QDAY SUPPLEMENT 01/13/25 02/10/25 History mg) tablet,extended release progesterone micronized 100 mg 100 mg PO QHS 02/07/25 02/10/25 History capsule Allergy/AdvReac Type Severity Reaction Status Date / Time No Known Allergies Allergy Verified 02/07/25 13:32 Family History Father Age: 81 Hypertension High cholesterol Neuropathy Alcoholism Depression Mother Age: 78 High cholesterol Hypertension Arthritis Daughter Anxiety Son Anxiety Aunt Breast cancer Cancer skin Grandmother Breast cancer Grandfather Cancer skin Surgical History History of Laparoscopy for endometriosis History of uterine suspension procedure History of D&C Social History adopted: No number of children: 2 current occupation: [employer]/ [employer] current occupational exposures/hazards: No pets and animals: Yes leisure activities: music history of recent travel: No sexually active: Yes Smoking Status: Never smoker second hand exposure: No alcohol intake: never substance use type: does not use well-balanced diet: daily or most days caffeine: Yes Type: tea eating out: other during the past year weight has: remained stable frequency: 3-4 times per week duration: 45-60 minutes/day giselle/anglican: Jose Followting seatbelt use: always do you feel safe at home: Yes 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 What would you like to achieve or improve as a result of your hospital stay?: none Vital Signs Vital Signs Vital Signs: 02/11/25 06:09 02/11/25 06:11 02/11/25 06:13 Temperature 98.4 F Temperature Source Temporal Pulse Rate 77 Respiratory Rate 16 Respiratory Pattern Normal Blood Pressure 155/83 H Blood Pressure Mean 107 Blood Pressure Source Monitor Blood Pressure Position Semi-Fowlers Blood Pressure Location Left Arm Baseline BP 155/83 Pulse Ox 99 Oxygen Delivery Method Room Air Weight Weight: 164 lb 14.492 oz Body Mass Index (BMI) 29.2 Physical Exam Const alert, oriented x3, no apparent distress and healthy appearing General Appearance: cooperative GI normal to inspection, nondistended, normoactive bowel sounds, soft to palpation, non-tender and non-distended Percussion: normal to percussion Rectal Exam: deferred Assessment & Plan Assessment/Plan (1) Abdominal pain: PLAN: ROS Const Constitutional: No fatigue, fever(s) or weight change ENT ENT: No difficulty swallowing Gastro GI: Positive for bloating; No abdominal pain, belching, change in bowel habits, change in stool character, coffee ground emesis, constipation, cramping, diarrhea, heartburn, difficulty swallowing, feeling full early, excessive flatus, incontinent of stools, Vomiting blood/hematemesis, Blood in stool, loose stools, Black,tarry stools, nausea/dyspepsia, pain with swallowing, vomiting or other Musc Musculoskeletal: Positive for joint pain, back pain and stiffness Skin Skin: No yellowing of the eye or itchy eyes Psych Psychiatric: No anxiety and No depression Endo Endocrine: No fatigue or weight change Aller/Imm Allergy/Immunologic: No itchy eyes Petar/Lymp Hematologic/Lymphatic: No easy bleeding or easy bruising Exam Const General: cooperative, healthy appearing, comfortable, no acute distress, well developed and well groomed Orientation: oriented x3 Eyes Sclera: sclerae normal Resp Effort & Inspection: normal respiratory effort Auscultation: Bilateral: Clear to Auscultation Cardio Rate: regular rate Rhythm: regular rhythm GI Inspection: normal to inspection Auscultation: normal bowel sounds Palpation: soft Assessment and Plan Assessment and Plan (1) Right upper quadrant pain: Status: Acute (2) Screening for colon cancer: Status: Acute Plan: Chronic abdominal bloating : Persistent bloating with intermittent stomach pinging, often after drinking water at work; less on weekends; unchanged with recent hormone therapy. - Obtain blood work today (non-fasting), including: food allergy testing, autoimmune panel, antineutrophil cytoplasmic antibodies (ANCA), celiac disease testing, creatine phosphokinase (CPK), erythrocyte sedimentation rate (ESR), C-reactive protein (CRP), inflammatory bowel disease (IBD) markers, immune system evaluation, vitamin D, vitamin B12, and magnesium. - Schedule upper endoscopy and colonoscopy at the hospital to evaluate esophagus, stomach, small bowel, and colon (each procedure approximately 20 minutes). Chronic musculoskeletal pain and stiffness : Reports chronic stiffness and achiness, worse after activity or prolonged sitting; chiropractor suggested possible fibromyalgia (not diagnosed). - Include CPK, ESR, and CRP in blood work to assess muscle/inflammatory markers (as discussed). 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 Hot flashes : Hot flashes improved on estrogen patch and oral progesterone started three weeks ago. Follow-up : Plan to review results and discuss findings via patient portal. - Have staff assist with setting up patient portal for result review and messaging. - Communicate test results and interpretations through the portal as they return. Portions of this note were generated using voice recognition software ([employer]). I have reviewed the contents and every effort has been made to ensure accuracy; however, inadvertent errors in grammar, spelling, punctuation, or word choice may occur, that were not noted before signing the document and should not alter the intended clinical meaning. Orders: Orders ANCA Today R10.11 - Right upper quadrant pain Celiac Disease Profile Today R10.11 - Right upper quadrant pain CRP Today R10.11 - Right upper quadrant pain Erythrocyte Sed Rate Today R10.11 - Right upper quadrant pain Allergen, Food Profile 14 Today R10.11 - Right upper quadrant pain Immunoglobulins G/A/M/E Today R10.11 - Right upper quadrant pain Vitamin D 1,25-Dihydroxy Today R10.11 - Right upper quadrant pain Thyroid Stim Hormone (TSH) Today R10.11 - Right upper quadrant pain IBD Expanded Profile Today R10.11 - Right upper quadrant pain LDH Today R10.11 - Right upper quadrant pain Aldolase Today R10.11 - Right upper quadrant pain CPK Total, Creatine Kinase Today R10.11 - Right upper quadrant pain Vitamin B12 Today R10.11 - Right upper quadrant pain FOLATES,SERUM (FOLIC ACID) Today R10.11 - Right upper quadrant pain Magnesium Today R10.11 - Right upper quadrant pain Phosphorus Today R10.11 - Right upper quadrant pain DINORA Comprehensive Panel Today ] (2) Screening for colon cancer: PLAN: Plan Assessment and Plan Assessment and Plan (1) Right upper quadrant pain: Status: Acute (2) Screening for colon cancer: Status: Acute Plan: Chronic abdominal bloating : Persistent bloating with intermittent stomach pinging, often after drinking water at work; less on weekends; unchanged with recent hormone therapy. - Obtain blood work today (non-fasting), including: food allergy testing, autoimmune panel, antineutrophil cytoplasmic antibodies (ANCA), celiac disease testing, creatine phosphokinase (CPK), erythrocyte sedimentation rate (ESR), C-reactive protein (CRP), inflammatory bowel disease (IBD) markers, immune system evaluation, vitamin D, vitamin B12, and magnesium. - Schedule upper endoscopy and colonoscopy at the hospital to evaluate esophagus, stomach, small bowel, and colon (each procedure approximately 20 minutes). Chronic musculoskeletal pain and stiffness : Reports chronic stiffness and achiness, worse after activity or prolonged sitting; chiropractor suggested possible fibromyalgia (not diagnosed). - Include CPK, ESR, and CRP in blood work to assess muscle/inflammatory markers (as discussed). 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 Hot flashes : Hot flashes improved on estrogen patch and oral progesterone started three weeks ago. Follow-up : Plan to review results and discuss findings via patient portal. - Have staff assist with setting up patient portal for result review and messaging. - Communicate test results and interpretations through the portal as they return. Portions of this note were generated using voice recognition software ([employer]). I have reviewed the contents and every effort has been made to ensure accuracy; however, inadvertent errors in grammar, spelling, punctuation, or word choice may occur, that were not noted before signing the document and should not alter the intended clinical meaning. Orders: Orders ANCA Today R10.11 - Right upper quadrant pain Celiac Disease Profile Today R10.11 - Right upper quadrant pain CRP Today R10.11 - Right upper quadrant pain Erythrocyte Sed Rate Today R10.11 - Right upper quadrant pain Allergen, Food Profile 14 Today R10.11 - Right upper quadrant pain Immunoglobulins G/A/M/E Today R10.11 - Right upper quadrant pain Vitamin D 1,25-Dihydroxy Today R10.11 - Right upper quadrant pain Thyroid Stim Hormone (TSH) Today R10.11 - Right upper quadrant pain IBD Expanded Profile Today R10.11 - Right upper quadrant pain LDH Today R10.11 - Right upper quadrant pain Aldolase Today R10.11 - Right upper quadrant pain CPK Total, Creatine Kinase Today R10.11 - Right upper quadrant pain Vitamin B12 Today R10.11 - Right upper quadrant pain FOLATES,SERUM (FOLIC ACID) Today R10.11 - Right upper quadrant pain Magnesium Today R10.11 - Right upper quadrant pain Phosphorus Today R10.11 - Right upper quadrant pain DIN[facility]A Comprehensive Panel Today ]
--- NOTE | 2025-02-11 06:30 | EGD_PTH ---
PATIENT: VARSHA ALLISON LOC: EN U#:[id number] AGE/SX: 55/F ROOM: RE02/11/[address]: Dr. Hank Enriquez DO : 1970 BED: DIS: 02/11/2025 SPEC #: [id number] RECD: 02/11/25 08:03 STATUS: MATTIE REQamar #: [id number] TAMMY: 02/11/25 06:[address]: Hank Enriquez DEPT: SURGICAL PATHOLOGY RECD BY: Gita Betancourt ENTERED: 02/11/25 13:46 SP TYPE: EGD BIOPSY OT DR: Dr. Thierry Wan MD Tissues: A - Duodenum, NOS B - Gastric mucous membrane C - Esophagus, NOS D - COLON BIOPSY Procedures: Immunohistochemical Stains Surgery Specimen Level IV HEADER OPERATION: Colonoscopy, EGD, biopsy PRE-OP DIAGNOSIS: Right upper quadrant pain, screening for colon cancer TISSUE SUBMITTED: A. duodenum, B. Gastric body, C. Distal esophagus, D. Hepatic flexure polyp MICROSCOPIC DIAGNOSIS A. Small intestine, duodenum, biopsy: - Normal villous architecture with no specific pathologic change. - Negative for increased intraepithelial lymphocytes. B. Stomach, body, biopsy: - Oxyntic mucosa with features of reactive gastropathy. - IHC negative for H. pylori organisms. C. Esophagus, distal, biopsy: - Squamous mucosa with reactive changes, rare eosinophil noted. - Columnar mucosa negative for goblet cell metaplasia. - Pancreatic acinar metaplasia. - Negative for dysplasia. D. Colon, hepatic flexure, polyp, biopsy: - Colonic mucosa with mucosal lymphoid aggregate. MICROSCOPIC DESCRIPTION Slides are reviewed. All matched controls reacted appropriately. These tests were developed and their performance characteristics determined by [facility]. They may not have been cleared or approved by the U.S. Food and Drug Administration. The FDA has determined that such clearance or approval is not necessary. The above immunohistochemical markers are viewed by the Pathologist. GROSS DESCRIPTION A. Received is one container labeled with the patient name and designated duodenum. The specimen consists of multiple irregular fragments of roche tissue that in aggregate measure 1.0 x 0.5 x 0.1 cm. The specimen is totally submitted in one cassette. B. Received is one container labeled with the patient name and designated gastric body. The specimen consists of two irregular fragments of roche tissue that measure 0.5 and 0.6cm. The specimen is totally submitted in one cassette. C. Received is one container labeled with the patient name and designated distal esophagus. The specimen consists of multiple irregular fragments of roche tissue that in aggregate measure 0.8 x 0.4 x 0.1 cm. The specimen is totally submitted in one cassette. D. Received is one container labeled with the patient name and designated hepatic flexure polyp. The specimen consists of one irregular fragment of roche tissue that measures 0.6 cm. The specimen is totally submitted in one cassette. IN 02/11/2025 CPT:99179p3, 65315
--- NOTE | 2025-02-11 06:31 | PCM.PRE.AN2 ---
ASA Classification* ASA Classification ASA Classification: 2 Assessment & Plan Anesthesia* Anesthesia Assessment Anesthesia Assessment: Discussed sedation and/or anesthesia options, risks, benefits, and alternatives with patient/parents/legal guardian/POA. Questions invited. The patient/parents/legal guardian/POA seems to understand and agrees to proceed with anesthesia plan. Reviewed the physical assessment, medical history, allergy history and patient home medications list prior to surgery/procedure/anesthetic and documented any changes. Performed airway and anesthesia risk assessments. Anesthesia Type Anesthesia Type: MAC History Source History Obtained from:: Patient and Chart Anesthesia Focused Assessment* Temperature: 98.4 F Pulse Rate: 77 Blood Pressure: 155/83 Respiratory Rate: 16 Pulse Ox: 99 Oxygen Delivery Method: Room Air Airway Assessment Mouth opens: >3 cm Mallampati Score: III Teeth Condition: Caps/Crowns (Patient has a crown. It is tight.) Neck Range of motion (ROM): Limited ROM (Somewhat Decreased) Labs Anesthesia Preop lab: CBC WBC, (4.4-11.0) 8.3 K/mm3 12/11/24, 13:01 RBC, (4.2-5.4) 4.64 M/mm3 12/11/24, 13:01 Hgb, (12.0-15.0) 14.6 g/dL 12/11/24, 13:01 Hct, (37-47) 42.2 % 12/11/24, 13:01 Plt Count, (150-450) 325 K/mm3 12/11/24, 13:01 CHEMISTRY Potassium, (3.3-5.1) 4.3 mmol/L 12/16/24, 08:57 Sodium, (133-145) 141 mmol/L 12/16/24, 08:57 Magnesium, (1.5-2.2) 2.2 mg/dL 01/13/25, 15:31 Phosphorus, (2.7-4.5) 3.0 mg/dL 01/13/25, 15:31 BUN, (4-19) 13 mg/dL 12/16/24, 08:57 Creatinine, (0.70-1.20) 0.76 mg/dL 12/16/24, 08:57 Glucose, (70-99) 101 mg/dL H 12/16/24, 08:57 TSH, (0.300-4.200) 0.572 uIU/mL 01/13/25, 15:31 COAG PT, (11.7-14.9) 13.4 SECONDS 03/20/23, 15:24 Pre-Assessment Diagnosis/Proposed Procedure Planned Operative Procedure(s): COLONOSCOPY, EGD Anesthesia History Anesthesia History - manager inventory management: Anesthesia History - manager inventory management Hx Hospitalization No 02/07/25 13:34 Any Problems With Anesthesia No 02/07/25 13:34 Cholinesterase deficiency No 02/07/25 13:34 You/Your Family Experience No 02/07/25 13:34 fever (hyperthermia) with Relationship Recent Exposure to Contagious No 02/11/25 06:09 Disease Does patient have nerve No 02/07/25 13:34 stimulator Patient instructed to have device shut off --Does patient have Pacemaker No 02/11/25 06:11 or ICD? When Was Last Pacemaker Check QUESTION #4 FULL TEXT: You/Your Family Experience fever (hyperthermia) with Anesthesia Last Oral Intake Last Oral intake: Last Oral Intake NPO since 02:30 02/11/25 06:11 Meds taken in AM with sips of No 02/11/25 06:11 water? Meds patient instructed to take am of surgery Any additional information?: Yes NPO since: 02:30 (Patient finished prep at 2:30 AM.) Meds taken in AM with sips of water?: No PONV PONV - manager inventory management: PONV - manager inventory management Female Yes 02/07/25 13:34 HX of Motion Sickness Yes 02/07/25 13:34 HX of N/V After Surgery No 02/07/25 13:34 Non-Smoker Yes 02/07/25 13:34 Duration of Surgery greater No 02/07/25 13:34 than 60 minutes Number of Risk Factors 3 02/07/25 13:34 PONV Score Moderate Risk 02/07/25 13:34 Height & Weight Height & Weight: Anesthesia: Height & Weight Height 5 ft 3 in 02/11/25 06:11 Weight: 74.8 kg 02/11/25 06:11 Body Mass Index (BMI) 29.2 02/11/25 06:11 Respiratory Assessment Respiratory Assessment - manager inventory management: Respiratory Tract Infection Hx - manager inventory management Hx Respiratory Tract Infection No 02/07/25 13:34 STOP Sleep Apnea STOP Sleep Apnea - manager inventory management: STOP Sleep Apnea - manager inventory management Hx Hypertension No 02/07/25 13:34 Hx Sleep Apnea No 02/07/25 13:34 CPAP BIPAP Do you snore loudly (louder No 02/07/25 13:34 than talking or can be heard Do you often feel tired/ No 02/07/25 13:34 fatigued/ sleepy during daytime? Has anyone observed you stop No 02/07/25 13:34 breathing during sleep? STOP Results Negative 02/07/25 13:34 QUESTION #5 FULL TEXT : Do you snore loudly (louder than talking or can be heard through closed doors)? Tobacco Use History Tobacco Use History - manager inventory management: Tobacco Use History - manager inventory management Tobacco Use Smoking Status Never smoker 02/07/25 13:34 Hx Tobacco Use No 02/07/25 13:34 Years Smoking Packs Smoked per Day Smoking Cessation Date was within the last 15 years Hx Smoking Cessation Date Hx Smoking Cessation Counseling Hematologic Medial History Hematologic Hx - manager inventory management: Hematologic Medical Hx - civil rights attorney Hx of Blood Transfusion No 02/07/25 13:34 Hx of Transfusion in last 3 No 02/07/25 13:34 Months Date of Last Transfusion (if within last 3 months) Ever experience any problems No 02/07/25 13:34 with transfusion(s)? Specify any problems Hx of Preganancy in last 3 No 02/07/25 13:34 Months Nurse Filling Out Transfusion MGRIFFITH 02/07/25 13:34 & Questions: Date: 02/07/25 02/07/25 13:34 Time: 13:36 02/07/25 13:34 Patient unable to answer at this time (ie. confused, unrespo /Reproduction History /Reproductive History - manager inventory management: /Reproductive Hx- manager inventory management Hx Now No 02/07/25 13:34 Gestational Age (in weeks): EDC: Hx Hx Para Hx Section SAB No 02/07/25 13:34 Does the father of the baby or his family experience fever w Father of the baby Malignant Hypertension history comment Active Medications Active Medications: Current Medications Generic Name Dose Route Start Last Admin Trade Name Freq PRN Reason Stop Dose Admin Lactated Ringer's 1,000 mls @ 15 mls/hr 02/11/25 06:15 02/11/25 06:15 IV 15 mls/hr .Q48H NICO Administration PFSH Medical History Wears glasses Post-menopausal Cancer Injury of head and neck Non-smoker History of edema Skin cancer Hepatitis-C Breast lump Back problem Cyst of breast, left, solitary History of back problems Arthritis Abnormal mammogram of left breast Home Medications ?Medication ?Instructions ?Recorded ?Last Taken ?Type estradiol 0.025 mg/24 hr 1 patch transdermal .WK 01/13/25 02/10/25 History semiweekly transdermal patch (Vivelle-Dot) multivitamin 1 tab PO QAM 01/13/25 02/10/25 History potassium citrate 10 mEq (1,080 10 meq PO QDAY SUPPLEMENT 01/13/25 02/10/25 History mg) tablet,extended release progesterone micronized 100 mg 100 mg PO QHS 02/07/25 02/10/25 History capsule Allergy/AdvReac Type Severity Reaction Status Date / Time No Known Allergies Allergy Verified 02/07/25 13:32 Family History Father Age: 81 Hypertension High cholesterol Neuropathy Alcoholism Depression Mother Age: 78 High cholesterol Hypertension Arthritis Daughter Anxiety Son Anxiety Aunt Breast cancer Cancer skin Grandmother Breast cancer Grandfather Cancer skin Surgical History History of Laparoscopy for endometriosis History of uterine suspension procedure History of D&C Social History adopted: No number of children: 2 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 current occupational exposures/hazards: No pets and animals: Yes leisure activities: music history of recent travel: No sexually active: Yes Smoking Status: Never smoker second hand exposure: No alcohol intake: never substance use type: does not use well-balanced diet: daily or most days caffeine: Yes Type: tea eating out: other during the past year weight has: remained stable frequency: 3-4 times per week duration: 45-60 minutes/day giselle/protestant: Jose Follower seatbelt use: always do you feel safe at home: Yes 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
--- NOTE | 2025-02-11 07:23 | OP.EGD_ITS ---
Patient Name: Huan Burks Procedure Date: 02/11/2025 6:35 AM Date of : 1970 Age: 55 Procedure: Upper GI endoscopy Indications: Epigastric abdominal pain, Functional Dyspepsia, Indigestion, Suspected esophageal reflux Providers: Hank Enriquez DO Referring MD: Thierry Wan MD Medicines: Monitored Anesthesia Care Patient Profile: This is a 55 year old female. Refer to note in patient chart for documentation of history and physical. Patient has symptoms of chronic abdominal cramping, chronic epigastric abdominal pain, chronic dyspepsia, acute heartburn and chronic nausea. Complications: No immediate complications. Procedure: Pre-Anesthesia Assessment: - Prior to the procedure, a History and Physical was performed, and patient medications and allergies were reviewed. The patient is competent. The risks and benefits of the procedure and the sedation options and risks were discussed with the patient. All questions were answered and informed consent was obtained. Patient identification and proposed procedure were verified by the physician in the pre-procedure area. Mental Status Examination: alert and oriented. Airway Examination: normal oropharyngeal airway and neck mobility. Respiratory Examination: clear to auscultation. CV Examination: normal. Prophylactic Antibiotics: The patient does not require prophylactic antibiotics. Prior Anticoagulants: The patient has taken no anticoagulant or antiplatelet agents. ASA Grade Assessment: II - A patient with mild systemic disease. After reviewing the risks and benefits, the patient was deemed in satisfactory condition to undergo the procedure. The anesthesia plan was to use monitored anesthesia care (MAC). Immediately prior to administration of medications, the patient was re-assessed for adequacy to receive sedatives. The heart rate, respiratory rate, oxygen saturations, blood pressure, adequacy of pulmonary ventilation, and response to care were monitored throughout the procedure. The physical status of the patient was re-assessed after the procedure. After obtaining informed consent, the endoscope was passed under direct vision. Throughout the procedure, the patient's blood pressure, pulse, and oxygen saturations were monitored continuously. The Colonoscope was introduced through the mouth, and advanced to the fourth part of the duodenum. Small bowel enteroscopy was deemed necessary. The upper GI endoscopy was accomplished without difficulty. The patient tolerated the procedure well. Scope In: 6:48:15 AM Scope Out: 6:59:01 AM Total Procedure Duration Time 0 hours 10 minutes 46 seconds Findings: There was 7 to 8 mm lesion seen in the oropharynx adjacent to the epiglottis and right vocal cord. LA Grade A (one or more mucosal breaks less than 5 mm, not extending between tops of 2 mucosal folds) esophagitis with no bleeding was found 36 to 39 cm from the incisors. Biopsies were taken with a cold forceps for histology. Verification of patient identification for the specimen was done. Estimated blood loss was minimal. Patchy mildly erythematous mucosa without bleeding was found in the gastric body. Biopsies were taken with a cold forceps for histology. Biopsies were taken with a cold forceps for Helicobacter pylori testing. Verification of patient identification for the specimen was done. Estimated blood loss was minimal. Patchy mildly erythematous mucosa without active bleeding and with no stigmata of bleeding was found in the first portion of the duodenum. Biopsies were taken with a cold forceps for histology. Verification of patient identification for the specimen was done. Estimated blood loss was minimal. Impression: - LA Grade A reflux esophagitis with no bleeding. Biopsied. - Erythematous mucosa in the gastric body. Biopsied. - Erythematous duodenopathy. Biopsied. Recommendation: - Discharge patient to home. - Resume previous diet. - Continue present medications. - Await pathology results. - ENT consultation regarding lesion seen in the oropharynx. Procedure Code(s): --- Professional --- 42324, Small intestinal endoscopy, enteroscopy beyond second portion of duodenum, not including ileum; with biopsy, single or multiple CPT copyright 2021 [employer]. All rights reserved. The codes documented in this report are preliminary and upon medical biller/coder review may be revised to meet current compliance requirements. Hank Enriquez DO 02/11/2025 7:23:15 AM This report has been signed electronically. Number of Addenda: 0 Note Initiated On: 02/11/2025 6:35 AM
--- NOTE | 2025-02-11 07:24 | OP.PROVAT_ITS ---
02/11/2025 Thierry Wan MD [address] [place] [address] Re : Upper GI endoscopy procedure for Huan Burks Dear Dr. Wan This procedure was performed on Tuesday, February 11, 2025. My impressions and recommendations are as follows: Impressions : - LA Grade A reflux esophagitis with no bleeding. Biopsied. - Erythematous mucosa in the gastric body. Biopsied. - Erythematous duodenopathy. Biopsied. Recommendations : - Discharge patient to home. - Resume previous diet. - Continue present medications. - Await pathology results. - ENT consultation regarding lesion seen in the oropharynx. My findings are described in the full procedure note, which is enclosed. If I can be of further assistance, please feel free to contact me at . Sincerely, Hank Enriquez, 02/11/2025 7:23:15 AM This report has been signed electronically.
--- NOTE | 2025-02-11 07:26 | OP.COLON_ITS ---
Patient Name: Huan Burks Procedure Date: 02/11/2025 6:59 AM Date of : 1970 Age: 55 Procedure: Colonoscopy Indications: Screening for colorectal malignant neoplasm Providers: Hank Enriquez DO Referring MD: Thierry Wan MD Medicines: Monitored Anesthesia Care Patient Profile: This is a 55 year old female. Refer to note in patient chart for documentation of history and physical. Patient has symptoms of chronic abdominal cramping, chronic epigastric abdominal pain, chronic dyspepsia, acute heartburn and chronic nausea. Last Colonoscopy: none. The patient's first colonoscopy is today. Complications: No immediate complications. Procedure: Pre-Anesthesia Assessment: - Prior to the procedure, a History and Physical was performed, and patient medications and allergies were reviewed. The patient is competent. The risks and benefits of the procedure and the sedation options and risks were discussed with the patient. All questions were answered and informed consent was obtained. Patient identification and proposed procedure were verified by the physician in the pre-procedure area. Mental Status Examination: alert and oriented. Airway Examination: normal oropharyngeal airway and neck mobility. Respiratory Examination: clear to auscultation. CV Examination: normal. Prophylactic Antibiotics: The patient does not require prophylactic antibiotics. Prior Anticoagulants: The patient has taken no anticoagulant or antiplatelet agents. ASA Grade Assessment: II - A patient with mild systemic disease. After reviewing the risks and benefits, the patient was deemed in satisfactory condition to undergo the procedure. The anesthesia plan was to use monitored anesthesia care (MAC). Immediately prior to administration of medications, the patient was re-assessed for adequacy to receive sedatives. The heart rate, respiratory rate, oxygen saturations, blood pressure, adequacy of pulmonary ventilation, and response to care were monitored throughout the procedure. The physical status of the patient was re-assessed after the procedure. After I obtained informed consent, the scope was passed under direct vision. Throughout the procedure, the patient's blood pressure, pulse, and oxygen saturations were monitored continuously. The Colonoscope was introduced through the anus and advanced to the cecum, identified by appendiceal orifice and ileocecal valve. The colonoscopy was performed without difficulty. The patient tolerated the procedure well. The quality of the bowel preparation was adequate. The ileocecal valve, appendiceal orifice, and rectum were photographed. Scope In: 7:01:05 AM Scope Withdrawal Time 0 hours 8 minutes 21 seconds Scope Out: 7:13:27 AM Total Procedure Duration Time 0 hours 12 minutes 22 seconds Findings: The perianal and digital rectal examinations were normal. A 7 mm polyp was found in the hepatic flexure. The polyp was sessile. The polyp was removed with a jumbo cold forceps. Resection and retrieval were complete. Verification of patient identification for the specimen was done. Estimated blood loss was minimal. A few small-mouthed diverticula were found in the recto-sigmoid colon and sigmoid colon. The exam was otherwise without abnormality on direct and retroflexion views. Impression: - One 7 mm polyp at the hepatic flexure, removed with a jumbo cold forceps. Resected and retrieved. - Diverticulosis in the recto-sigmoid colon and in the sigmoid colon. - The examination was otherwise normal on direct and retroflexion views. Recommendation: - Discharge patient to home. - Resume previous diet. - Continue present medications. - Await pathology results. - Repeat colonoscopy in 5 years for surveillance. - Return to GI office. Procedure Code(s): --- Professional --- 07331, Colonoscopy, flexible; with biopsy, single or multiple CPT copyright 2021 [employer]. All rights reserved. The codes documented in this report are preliminary and upon imaging engineer review may be revised to meet current compliance requirements. Hank Enriquez DO 02/11/2025 7:26:00 AM This report has been signed electronically. Number of Addenda: 0 Note Initiated On: 02/11/2025 6:59 AM
--- NOTE | 2025-02-11 07:26 | OP.PROVAT_ITS ---
02/11/2025 Thierry Wan MD [address] [place] [address] Re : Colonoscopy procedure for Huan Burks Dear Dr. Wan This procedure was performed on Tuesday, February 11, 2025. My impressions and recommendations are as follows: Impressions : - One 7 mm polyp at the hepatic flexure, removed with a jumbo cold forceps. Resected and retrieved. - Diverticulosis in the recto-sigmoid colon and in the sigmoid colon. - The examination was otherwise normal on direct and retroflexion views. Recommendations : - Discharge patient to home. - Resume previous diet. - Continue present medications. - Await pathology results. - Repeat colonoscopy in 5 years for surveillance. - Return to GI office. My findings are described in the full procedure note, which is enclosed. If I can be of further assistance, please feel free to contact me at . Sincerely, Hank Enriquez, 02/11/2025 7:26:00 AM This report has been signed electronically.
--- NOTE | 2025-02-11 07:29 | PCM.POST.ANE ---
Anesthesia: Postop Eval I Current Vital Signs Temperature: 97 F Pulse Rate: 81 Blood Pressure: 110/71 Respiratory Rate: 16 Pulse Ox: 99 Oxygen Delivery Method: Room Air Assessment Airway patent: Yes Spontaneous unlabored respirations: Yes Mental status: Awake and Calm nausea: No Vomiting: No Anesthesia Complication: No Fluid Hydration Crystalloid volume administer (ml): 600 Total IV fluid infused: 600 Progress Note Anesthesia document: Postop Eval 1 completed: Yes
--- NOTE | 2025-02-11 12:53 | PCM.POSTANE2 ---
Anesthesia Postop Eval I Sum Postop Eval Completion status Anesthesia document: Postop Eval 1 completed: Yes Anesthesia Postop Eval I Summary Anesthesia Postop Eval I Summary: Anesthesia Postop Eval I: Assessment Summary Airway patent Yes 02/11/25 07:29 [email or web address] Spontaneous unlabored Yes 02/11/25 07:29 [email or web address] respirations Mental status Awake,Calm 02/11/25 07:29 [email or web address] nausea No 02/11/25 07:29 [email or web address] Vomiting No 02/11/25 07:29 [email or web address] Anesthesia Postop Eval I: Fluid Summary Crystalloid volume administer 600 02/11/25 07:29 [email or web address] (ml) Colloids volume administered ( ml) Blood Product volume administered (ml) Total IV fluid infused 600 02/11/25 07:29 [email or web address] Anesthesia Postop Eval I: Summary Notes Anesthesia Complication No 02/11/25 07:29 [email or web address] Anesthesia Complication Comment: Post-operative progress note Anesthesia: Postop Eval II Evaluation Mental status: Awake and Calm Pain Level: 0 nausea: No Vomiting: No Complications Anesthesia Complication: No
== END 2025-02-11 08:19 | disposition home or self-care (01) ==
LOC: EN 05:24 → AC 05:29
PROVIDERS: PCP Family Medicine Geriatric Medicine; Referring Provider Family Medicine Geriatric Medicine; Visit Provider Internal Medicine Gastroenterology
PROC: 0DJD8ZZ Inspection of Lower Intestinal Tract, Via Natural or Artificial Opening Endoscopic (ICD-10-PCS; CPT 45378; principal; 2025-02-11 06:25)
DX: Z12.11 Encounter for screening for malignant neoplasm of colon (principal); K57.30 Diverticulosis of large intestine without perforation or abscess without bleeding; K63.5 Polyp of colon; K21.00 Gastro-esophageal reflux disease with esophagitis, without bleeding; Z85.828 Personal history of other malignant neoplasm of skin; R10.11 Right upper quadrant pain; J39.2 Other diseases of pharynx; K31.89 Other diseases of stomach and duodenum; D72.10 Eosinophilia, unspecified; K86.89 Other specified diseases of pancreas
CPT/HCPCS: 44361; 45380; 88305; 88342; J2405